=== PATIENT | male | born 1955 | race Caucasian/White ===

== ENCOUNTER 2018-10-01 17:32 | Inpatient (IN) | payer MEDICARE ==
[~2018-10-01] VITALS: Ht 185.4 cm; Wt 112.7 kg
[~2018-10-01 17:32] MED LIST: HYDR-2761 PO; HYDR-3164 PO; SULF1TAB24 PO
[2018-10-01] MEDS ORDERED: IV NORMAL SALINE 1000ML BAG 1,000 ML IV ONE (18:15)
[2018-10-01] MEDS ORDERED: ONDANSETRON PF 4 MG/2 ML VIAL. IV ONE (18:15)
[2018-10-01] MEDS ORDERED: fentaNYL PF VIAL 100 MCG/2 ML VIAL IV ONE ×3 (18:15→21:45)
--- NOTE | 2018-10-01 18:40 | PHYS DOC ---
Past Medical History Past Medical History: COPD, Hypertension, Hepatitis Additional Past Medical Histor: HEP C, RHEUMATIC FEVER, pancreatitis Past Surgical History: Other Additional Past Surgical Histo: HERNIA Alcohol Use: Occasionally Drug Use: None Adult General Chief Complaint Chief Complaint: ABDOMINAL PAIN HPI HPI Patient is a 63 year old male who presents with history of hepatitis C and began having right upper quadrant pain and right lower quadrant pain. Patient states he doesn't usually have pain but it started today about 8:00. States he couldn't sleep at all last night he took one Tylenol PM. States usually takes ibuprofen. His pain 8 out of 10. Denies fever, chest pain, vomiting, diarrhea, weakness, numbness tingling or shortness of air. He ate last at 1630. He is a history of smoking, COPD, hypertension. He states he is only on hypertension medicine. He states he goes to family practice for anything but has not gone a very long time. Currently has no PCP. He denies taking any alcohol. He is allergic to penicillin. He also states he has not had a bowel movement in the last 2 days. Review of Systems Review of Systems Constitutional: Denies fever or chills [] Eyes: Denies change in visual acuity, redness, or eye pain. sclera yellow/white[ ] HENT: Denies nasal congestion or sore throat [] Respiratory: Denies cough or shortness of breath [] Cardiovascular: No additional information not addressed in HPI [] GI: RUQ, RLQ abdominal pain, nausea, Denies vomiting, bloody stools or diarrhea [] : Denies dysuria or hematuria [] Musculoskeletal: Denies back pain or joint pain [] Integument: Denies rash or skin lesions [] Neurologic: headache, denies focal weakness or sensory changes [] All other systems were reviewed and found to be within normal limits, except as documented in this note. Current Medications Current Medications Current Medications Medications (Trade) Dose Ordered Sig/Edwin Start Time Stop Time Status Last Admin Dose Admin Fentanyl Citrate (Fentanyl 2ml Vial) 50 mcg 1X ONCE 10/01/18 20:00 10/01/18 20:01 DC 10/01/18 20:05 50 MCG Info (CONTRAST GIVEN -- Rx MONITORING) 1 each PRN DAILY PRN 10/01/18 19:45 10/03/18 19:44 Iohexol (Omnipaque 300 Mg/ml) 75 ml 1X ONCE 10/01/18 19:45 10/01/18 19:46 DC 10/01/18 19:56 75 ML Ketorolac Tromethamine (Toradol 30mg Vial) 30 mg 1X ONCE 10/01/18 20:00 10/01/18 20:01 DC 10/01/18 20:05 30 MG Ondansetron HCl (Zofran) 4 mg 1X ONCE 10/01/18 18:15 10/01/18 18:16 DC 10/01/18 18:15 4 MG Sodium Chloride 1,000 ml @ 1,000 mls/hr 1X ONCE 10/01/18 18:15 10/01/18 19:14 DC 10/01/18 18:15 1,000 MLS/HR Allergies Allergies Allergies Coded Allergies Type Severity Reaction Last Updated Verified Penicillins Allergy Intermediate hives, sweaty 06/28/16 Yes Physical Exam Physical Exam Constitutional: Well developed, well nourished, no acute distress, non-toxic appearance. [] HENT: Normocephalic, atraumatic, bilateral external ears normal, oropharynx moist, no oral exudates, nose normal. [] Eyes: PERRLA, EOMI, conjunctiva normal, no discharge. [] Neck: Normal range of motion, no tenderness, supple, no stridor. [] Cardiovascular:Heart rate regular rhythm, no murmur [] Lungs & Thorax: Bilateral breath sounds clear to auscultation [] Abdomen: Bowel sounds normal, soft, RUQ, RLQ tenderness, no masses, no pulsatile masses. [] Skin: Warm, dry, no erythema, no rash. [] Back: No tenderness, no CVA tenderness. [] Extremities: No tenderness, no cyanosis, no clubbing, ROM intact, no edema. [] Neurologic: Alert and oriented X 3, normal motor function, normal sensory function, no focal deficits noted. [] Psychologic: Affect normal, judgement normal, mood normal. [] Current Patient Data Vital Signs Vital Signs Date Time Temp Pulse Resp B/P (MAP) Pulse Ox O2 Delivery O2 Flow Rate FiO2 10/01/18 21:20 92 126/87 (100) 94 Room Air 10/01/18 20:35 16 10/01/18 18:55 98.6 98.6 Lab Values Laboratory Tests Test 10/01/18 19:00 10/01/18 20:55 White Blood Count 15.0 x10^3/uL (4.0-11.0) H Red Blood Count 5.62 x10^6/uL (4.30-5.70) Hemoglobin 18.8 g/dL (13.0-17.5) H Hematocrit 54.3 % (39.0-53.0) H Mean Corpuscular Volume 97 fL (79-100) Mean Corpuscular Hemoglobin 33 pg (25-35) Mean Corpuscular Hemoglobin Concent 35 g/dL (31-37) Red Cell Distribution Width 13.2 % (11.5-14.5) Platelet Count 214 x10^3/uL (140-400) Neutrophils (%) (Auto) 72 % (31-73) Lymphocytes (%) (Auto) 20 % (24-48) L Monocytes (%) (Auto) 7 % (0-9) Eosinophils (%) (Auto) 0 % (0-3) Basophils (%) (Auto) 0 % (0-3) Neutrophils # (Auto) 10.9 x10^3uL (1.8-7.7) H Lymphocytes # (Auto) 2.9 x10^3/uL (1.0-4.8) Monocytes # (Auto) 1.1 x10^3/uL (0.0-1.1) Eosinophils # (Auto) 0.1 x10^3/uL (0.0-0.7) Basophils # (Auto) 0.1 x10^3/uL (0.0-0.2) Prothrombin Time 13.1 SEC (11.7-14.0) Prothrombin Time INR 1.0 (0.8-1.1) Sodium Level 143 mmol/L (136-145) Potassium Level 3.9 mmol/L (3.5-5.1) Chloride Level 104 mmol/L (98-107) Carbon Dioxide Level 29 mmol/L (21-32) Anion Gap 10 (6-14) Blood Urea Nitrogen 16 mg/dL (8-26) Creatinine 1.1 mg/dL (0.7-1.3) Estimated GFR (Cockcroft-Gault) 67.4 BUN/Creatinine Ratio 15 (6-20) Glucose Level 115 mg/dL (70-99) H Calcium Level 10.1 mg/dL (8.5-10.1) Total Bilirubin 1.2 mg/dL (0.2-1.0) H Aspartate Amino Transferase (AST) 37 U/L (15-37) Alanine Aminotransferase (ALT) 77 U/L (16-63) H Alkaline Phosphatase 63 U/L (46-116) Ammonia 14 mcmol/L (11-34) Troponin I Quantitative 0.034 ng/mL (0.000-0.055) Total Protein 7.6 g/dL (6.4-8.2) Albumin 3.6 g/dL (3.4-5.0) Albumin/Globulin Ratio 0.9 (1.0-1.7) L Lipase 146 U/L (73-393) Urine Collection Type Unknown Urine Color Yellow Urine Clarity Cloudy Urine pH 7.0 Urine Specific [place] >=1.030 Urine Protein Negative mg/dL (NEG-TRACE) Urine Glucose (UA) Negative mg/dL (NEG) Urine Ketones (Stick) Trace mg/dL (NEG) Urine Blood Small (NEG) Urine Nitrite Negative (NEG) Urine Bilirubin Negative (NEG) Urine Urobilinogen Dipstick 1.0 mg/dL (0.2 mg/dL) Urine Leukocyte Esterase Negative (NEG) Urine RBC 3-5 /HPF (0-2) Urine WBC Occ /HPF (0-4) Urine Squamous Epithelial Cells Occ /LPF Urine Bacteria 0 /HPF (0-FEW) Urine Hyaline Casts Few /HPF Urine Mucus Marked /LPF Urine Opiates Screen Neg (NEG) Urine Methadone Screen Neg (NEG) Urine Barbiturates Neg (NEG) Urine Phencyclidine Screen Neg (NEG) Urine Amphetamine/Methamphetamine Neg (NEG) Urine Benzodiazepines Screen Neg (NEG) Urine Cocaine Screen Neg (NEG) Urine Cannabinoids Screen Pos (NEG) Urine Ethyl Alcohol Neg (NEG) Laboratory Tests 10/01/18 19:00 Laboratory Tests 10/01/18 19:00 EKG EKG Sinus Rhythm and no STEMI Interpretation Time: [address] Keith Radiology/Procedures Radiology/Procedures CT abdomen pelvis Impressions: [facility] [address] [place] [address] IMAGING REPORT Signed PATIENT: GENEVIEVE GOLD ACCOUNT: [id number] : 1955 LOCATION: ER AGE: 63 SEX: M EXAM STATUS: REG ER ORD. PHYSICIAN: CHERYL TAYLOR APRN REASON: ABDOMINAL PAIN, OMNI 300, 75ml PROCEDURE: CT ABD PELV W/ IV CONTRST ONLY PQRS Compliance statement: One or more of the following individualized dose reduction techniques were utilized for this examination: 1. Automated exposure control. 2. Adjustment of the mA and/or kV according to patient size. 3. Use of iterative reconstruction technique. Indication:ABDOMINAL PAIN, OMNI 300, 75ml TECHNIQUE: CT abdomen and pelvis with IV contrast with multiplanar reformats. COMPARISON: None FINDINGS: Heart is normal in size. No pericardial or pleural effusion. 4 mm nodule in the right middle lobe stable from 2006 is benign given interval stability. Mild bibasilar subsegmental atelectasis. Stable 7 mm nodule in the right lower lobe (series 2 image 8). Too small to characterize ill-defined low attenuating lesion in segment 8 (series 2 image 16). Otherwise, liver, spleen, pancreas, adrenals within normal limits. Gallstone noted. No pericholecystic fluid. Bilateral low attenuating lesions are seen in the kidneys, the largest in the left kidney measuring 2.7 cm. No nephrolithiasis or hydronephrosis. No enlarged retroperitoneal or pelvic adenopathy. Small fat-containing right inguinal hernia. No free pelvic fluid or ascites. 1.3 cm soft tissue nodule in the left mesentery (series 2 image 61 most likely eccentric lymph node. No bowel obstruction. Appendix is dilated with periappendiceal inflammation measuring 8 mm. The tip of the appendix is dilated measuring 1 cm. No pneumoperitoneum. Urinary bladder is within normal limits. The prostate and seminal vesicles show no large mass. Small omental fat-containing medical hernia. No suspicious bony lesion. IMPRESSION: 1. Acute appendicitis. 2. Bilateral renal lesions most likely simple cyst. Nonemergent ultrasound of the kidneys recommended. 3. Cholelithiasis without imaging evidence of acute cholecystitis. 4. Indeterminate small liver lesion likely small hemangioma or cystic biliary hamartoma in absence of known primary malignancy. Electronically signed by: Xavi Alejandro DO (10/01/2018 8:13 PM) [facility] DICTATED and SIGNED BY: XAVI ALEJANDRO DO DATE: 10/01/182007 [facility] [address] [place] [address] IMAGING REPORT Signed PATIENT: GENEVIEVE GOLD ACCOUNT: [id number] : 1955 LOCATION: ER AGE: 63 SEX: M EXAM STATUS: REG ER ORD. PHYSICIAN: CHERYL TAYLOR APRN REASON: CHEST PAIN PROCEDURE: CHEST PA & LATERAL CHEST PA LATERAL History: CHEST, ABDOMINAL PAIN X2 DAYS. HX. OF HBP Comparison: AP chest July 25, 2016. Findings: The cardiomediastinal silhouette is normal. Pulmonary vasculature is normal. Lungs borderline hyperexpanded. The lungs are clear. No pleural effusion or pneumothorax is seen. There is no acute bone abnormality. IMPRESSION: No acute cardiopulmonary process. Electronically signed by: Elliott Craft MD (10/01/2018 8:39 PM) [facility] DICTATED and SIGNED BY: ELLIOTT CRAFT MD DATE: 10/01/182036 Course & Med Decision Making Course & Med Decision Making Patient is a 63 year old male who presents with history of hepatitis C and began having right upper quadrant pain and right lower quadrant pain. Patient states he doesn't usually have pain but it started today about 8:00. States he couldn't sleep at all last night he took one Tylenol PM. States usually takes ibuprofen. His pain 8 out of 10. Denies fever, chest pain, vomiting, diarrhea, weakness, numbness tingling or shortness of air. He ate last at 1630. He is a history of smoking, COPD, hypertension. He states he is only on hypertension medicine. He states he goes to family practice for anything but has not gone a very long time. Currently has no PCP. He denies taking any alcohol. He is allergic to penicillin. He also states he has not had a bowel movement in the last 2 days. Alert and oriented. Patient's sclera looks slightly yellow but skin does not look yellow. Mucus membranes are moist. Palpation to the right about quadrant shows a enlarged liver and pain with palpation in patient also has right lower quadrant pain with palpation. Rest of his abdomen is soft and nontender. Heart rate regular without murmur. Lungs are clear in upper lobes bilaterally but diminished in lower lobes bilaterally. Patient has no lower extremity edema. Afebrile. CT abdomen pelvis shows 1. Acute appendicitis. 2. Bilateral renal lesions most likely simple cyst. Nonemergent ultrasound of the kidneys recommended. 3. Cholelithiasis without imaging evidence of acute cholecystitis. 4. Indeterminate small liver lesion likely small hemangioma or cystic biliary hamartoma in absence of known primary malignancy. She is admitted by Dr. Hansen and Dr Garrett has talked to Surgery. Dragon Disclaimer Dragon Disclaimer This electronic medical record was generated, in whole or in part, using a voice recognition dictation system. Departure Departure Impression: Primary Impression: Acute appendicitis Disposition: ADMITTED INPATIENT Admitting Physician: Xie. Slade Condition: STABLE Referrals: UNKNOWN PCP NAME (PCP) Attending Signature Attending Signature I have reviewed the PA/TOURS HOSTESS's note and plan of care. I was available for consultation as needed during the patient's visit in the emergency department. I agree with the clinical impression, plan, and disposition. Problem Qualifiers Primary Impression: Acute appendicitis Acute appendicitis type: unspecified acute appendicitis type Qualified Codes : K35.80 - Unspecified acute appendicitis CHERYL TAYLOR APRN Oct 01, 2018 18:40 TANIYA KEITH DO Oct 03, 2018 14:16
[2018-10-01 19:12] LABS: BASO # 0.1 x10^3/uL (0.0-0.2); BASO % 0 % (0-3); EOS # 0.1 x10^3/uL (0.0-0.7); EOS % 0 % (0-3); HEMATOCRIT 54.3 % (39.0-53.0); HEMOGLOBIN 18.8 g/dL (13.0-17.5); LYMPH # 2.9 x10^3/uL (1.0-4.8); LYMPH % 20 % (24-48); MEAN CORPUSCULAR HEMOGLOBIN 33 pg (25-35); MEAN CORPUSCULAR HGB CONC 35 g/dL (31-37); MEAN CORPUSCULAR VOLUME 97 fL (79-100); MONO # 1.1 x10^3/uL (0.0-1.1); MONO % 7 % (0-9); NEUT # 10.9 x10^3uL (1.8-7.7); NEUT % 72 % (31-73); PLATELET COUNT 214 x10^3/uL (140-400); RED BLOOD COUNT 5.62 x10^6/uL (4.30-5.70); RED CELL DISTRIBUTION WIDTH 13.2 % (11.5-14.5)
[2018-10-01 19:16] LABS: CALCIUM 10.1 mg/dL (8.5-10.1); CREATININE 1.1 mg/dL (0.7-1.3); GFR 67.4; POTASSIUM 3.9 mmol/L (3.5-5.1)
[2018-10-01 19:25] LABS: ALBUMIN 3.6 g/dL (3.4-5.0); ALBUMIN/GLOBULIN RATIO 0.9 (1.0-1.7); TOTAL BILIRUBIN 1.2 mg/dL (0.2-1.0); TOTAL PROTEIN 7.6 g/dL (6.4-8.2)
[2018-10-01] MEDS ORDERED: CONTRAST GIVEN. MC PRN (19:45)
[2018-10-01] MEDS ORDERED: IOHEXOL 300 MG/ML 100ML VIAL. IV ONE (19:45)
[2018-10-01] MEDS ORDERED: KETOROLAC 30 MG/ML VIAL. IV ONE (20:00)
--- NOTE | 2018-10-01 20:18 | RAD ---
PQRS Compliance statement: One or more of the following individualized dose reduction techniques were utilized for this examination: 1. Automated exposure control. 2. Adjustment of the mA and/or kV according to patient size. 3. Use of iterative reconstruction technique. Indication:ABDOMINAL PAIN, OMNI 300, 75ml TECHNIQUE: CT abdomen and pelvis with IV contrast with multiplanar reformats. COMPARISON: None FINDINGS: Heart is normal in size. No pericardial or pleural effusion. 4 mm nodule in the right middle lobe stable from 2006 is benign given interval stability. Mild bibasilar subsegmental atelectasis. Stable 7 mm nodule in the right lower lobe (series 2 image 8). Too small to characterize ill-defined low attenuating lesion in segment 8 (series 2 image 16). Otherwise, liver, spleen, pancreas, adrenals within normal limits. Gallstone noted. No pericholecystic fluid. Bilateral low attenuating lesions are seen in the kidneys, the largest in the left kidney measuring 2.7 cm. No nephrolithiasis or hydronephrosis. No enlarged retroperitoneal or pelvic adenopathy. Small fat-containing right inguinal hernia. No free pelvic fluid or ascites. 1.3 cm soft tissue nodule in the left mesentery (series 2 image 61 most likely eccentric lymph node. No bowel obstruction. Appendix is dilated with periappendiceal inflammation measuring 8 mm. The tip of the appendix is dilated measuring 1 cm. No pneumoperitoneum. Urinary bladder is within normal limits. The prostate and seminal vesicles show no large mass. Small omental fat-containing medical hernia. No suspicious bony lesion. IMPRESSION: 1. Acute appendicitis. 2. Bilateral renal lesions most likely simple cyst. Nonemergent ultrasound of the kidneys recommended. 3. Cholelithiasis without imaging evidence of acute cholecystitis. 4. Indeterminate small liver lesion likely small hemangioma or cystic biliary hamartoma in absence of known primary malignancy. Electronically signed by: Xavi Alejandro DO (10/01/2018 8:13 PM) [facility]
--- NOTE | 2018-10-01 20:43 | RAD ---
CHEST PA LATERAL History: CHEST, ABDOMINAL PAIN X2 DAYS. HX. OF HBP Comparison: AP chest July 25, 2016. Findings: The cardiomediastinal silhouette is normal. Pulmonary vasculature is normal. Lungs borderline hyperexpanded. The lungs are clear. No pleural effusion or pneumothorax is seen. There is no acute bone abnormality. IMPRESSION: No acute cardiopulmonary process. Electronically signed by: Elliott Craft MD (10/01/2018 8:39 PM) [facility]
[2018-10-01 21:05] LABS: BILIRUBIN,URINE NEGATIVE (NEG); CLARITY,URINE CLOUDY; COLOR,URINE YELLOW; NITRITE,URINE NEGATIVE (NEG); PROTEIN,URINE NEGATIVE (NEG-TRACE)
[2018-10-01 21:15] LABS: BARBITURATES NEG (NEG); BENZODIAZEPINES NEG (NEG); CANNABINOIDS POS (NEG); COCAINE NEG (NEG); METHADONE NEG (NEG); OPIATES NEG (NEG); PHENCYCLIDINE NEG (NEG)
[2018-10-01 21:18] LABS: AMPHETAMINE/METHAMPHETAMINE NEG (NEG)
[2018-10-01] MEDS ORDERED: cloNIDine HCL 0.1 MG TABLET PO ONE (21:30)
[2018-10-01 21:39] LABS: BACTERIA,URINE 0 /HPF (0-FEW); HYALINE CASTS, URINE FEW /HPF; SQUAMOUS EPITHELIAL CELL,UR OCC /LPF; WBC,URINE OCC /HPF (0-4)
[2018-10-01] MEDS ORDERED: IV DEXTROSE 5 %-0.45 % NACL 1,000 ML IV ONE (22:00)
[2018-10-01 22:05] LABS: PROTHROMBIN TIME PATIENT 13.1 SEC (11.7-14.0)
[2018-10-01 23:00] VITALS: BP 165/104
[2018-10-01] MEDS: CIPROFLOXACIN 400MG PREMIX 200 ML IV SCH (23:21)
[2018-10-02] VITALS (11 sets, daily range): BP systolic 140–233; BP diastolic 78–94
[2018-10-02] MEDS ORDERED: ONDANSETRON PF 4 MG/2 ML VIAL. IV PRN ×2 (02:45→07:45)
[2018-10-02] MEDS: MORPHINE SULFATE 4 MG/ML VIAL. IV PRN ×2 (02:55→07:28)
--- NOTE | 2018-10-02 06:22 | NUR ---
Admission Note Pt. was admitted late on 10/01/18, pt. is alert and oriented no room air stating at around 94%. Pt. VSS. Oriented pt. to room and call light. Pt. is complaining of pain in his abdomen, right lower quadrant around 8:10, states to this nurse that his pain began around yesterday morning, and he states he does also have some notable constipation. Pt. appears unkempt on admission and states it is due to his feelings of malaise over the last few days. Pt. states he believed his pain to be related to his diagnosis of Hep C. When asking pt. about home situation he states that he "gets dizzy a lot" but has not fallen recently however he is concerned about stairs that he has at home. This pt. also mentions to this nurse that he has a lot of difficulty seeing, which makes it difficult for him to care for his feet. Pt. states to this nurse that he does not regularly leave his apartment because he does not feel safe. Pt. states he lives alone at this time. Pt. also states he has home medications but that he is uncertain about what he takes though he states that several are for his blood pressure. Throughout this night the pt. was noted to be throwing PVC's, couplets, triplets, and to be going into trigeminy as well as at times accelerated ventricular rhythms. This nurse sent message to Dr. Hansen through the messaging system to notify the DrManpreet of this and to receive orders and received message back that the Doctor is now aware, will inform dayshift to follow up with MD on rounds this AM. Pt. is resting in bed at this time with minimal complaints of pain. Will continue to monitor pt.
[2018-10-02] MEDS ORDERED: DEXAMETHASONE SOD PHOS 20 MG/5 ML VIAL. ONE (06:46)
[2018-10-02] MEDS ORDERED: PROPOFOL 20 ML IV ONE (06:46)
[2018-10-02] MEDS ORDERED: ONDANSETRON PF 4 MG/2 ML VIAL. ONE (06:46)
[2018-10-02] MEDS ORDERED: LIDOCAINE 2% PF Vial for OR 5 ML VIAL. ONE (06:46)
[2018-10-02] MEDS ORDERED: ROCURONIUM 50 MG/5 ML VIAL. ONE (06:47)
[2018-10-02] MEDS ORDERED: SUCCINYLCHOLINE 200 MG/10 ML VIAL. ONE (06:47)
[2018-10-02] MEDS ORDERED: fentaNYL PF VIAL 100 MCG/2 ML VIAL ONE ×2 (06:47→08:23)
[2018-10-02] MEDS ORDERED: BUPIVAC MPF-EPI 0.5%-1:200000 30 ML VIAL. ONE (07:11)
[2018-10-02] MEDS ORDERED: IV RINGERS,LACTATED 1000ML 1,000 ML IV SCH (07:30)
--- NOTE | 2018-10-02 07:40 | PDOC2 ---
CONSULT Date of Consult Date of Consult DATE: 10/02/18 TIME: 07:36 History of Present Illness Reason for Visit: The patient is a 63 year old male who presented with abdominal pain. The pain began around 3 days ago and has been located in the RLQ. He denies associated nausea, vomiting, fever or chills. He denies changes in bowel function. Past Medical History Past Medical History Hep C, HTN, COPD, tobacco abuse Past Surgical History Past Surgical History bilat inguinal hernia repair Social History 1 pack per day Current Problem List Problem List Problems Medical Problems: (1) Acute appendicitis Status: Acute Current Medications Current Medications Current Medications Sodium Chloride 1,000 ml @ 1,000 mls/hr 1X ONCE IV Last administered on 10/01at 18:15; Start 10/01/18 at 18:15; Stop 10/01/18 at 19:14; Status DC Ondansetron HCl (Zofran) 4 mg 1X ONCE IV Last administered on 10/01/18at 18:15 ; Start 10/01/18 at 18:15; Stop 10/01/18 at 18:16; Status DC Fentanyl Citrate (Fentanyl 2ml Vial) 50 mcg 1X ONCE IV Last administered on at 19:15; Start 10/01/18 at 18:15; Stop 10/01/18 at 18:16; Status DC Iohexol (Omnipaque 300 Mg/ml) 75 ml 1X ONCE IV Last administered on at 19:56; Start 10/01/18 at 19:45; Stop 10/01/18 at 19:46; Status DC Info (CONTRAST GIVEN -- Rx MONITORING) 1 each PRN DAILY PRN MC SEE COMMENTS; Start 10/01/18 at 19:45; Stop 10/03/18 at 19:44 Ketorolac Tromethamine (Toradol 30mg Vial) 30 mg 1X ONCE IV Last administered on 10/01/18at 20:05; Start 10/01/18 at 20:00; Stop 10/01/18 at 20:01; Status DC Fentanyl Citrate (Fentanyl 2ml Vial) 50 mcg 1X ONCE IV Last administered on at 20:05; Start 10/01/18 at 20:00; Stop 10/01/18 at 20:01; Status DC Clonidine HCl (Catapres) 0.1 mg 1X ONCE PO Last administered on 10/01/18at 22: 30; Start 10/01/18 at 21:30; Stop 10/01/18 at 21:31; Status DC Fentanyl Citrate (Fentanyl 2ml Vial) 50 mcg 1X ONCE IV Last administered on at 21:45; Start 10/01/18 at 21:45; Stop 10/01/18 at 21:46; Status DC Ciprofloxacin/ Dextrose 200 ml @ 200 mls/hr BID IV Last administered on at 23:21; Start 10/01/18 at 22:00 Metronidazole 100 ml @ 100 mls/hr Q12HR IV Last administered on 10/01/18at 22: 35; Start 10/01/18 at 22:00 Dextrose/Sodium Chloride 1,000 ml @ 100 mls/hr 1X ONCE IV Last administered on 10/01/18at 23:21; Start 10/01/18 at 22:00; Stop 10/02/18 at 07:59 Morphine Sulfate (Morphine Sulfate) 2 mg PRN Q3HRS PRN IV PAIN Last administered on 10/02/18at 07:28; Start 10/02/18 at 02:45 Ondansetron HCl (Zofran) 4 mg PRN Q6HRS PRN IV NAUSEA/VOMITING; Start 10/02/18 at 02:45 Propofol 20 ml @ As Directed STK-MED ONCE IV ; Start 10/02/18 at 06:46; Stop 10/02 at 06:48; Status DC Dexamethasone Sodium Phosphate (Decadron) 20 mg STK-MED ONCE .ROUTE ; Start 10/02 at 06:46; Stop 10/02/18 at 06:48; Status DC Lidocaine HCl (Lidocaine Pf 2% Vial) 5 ml STK-MED ONCE .ROUTE ; Start 10/02/18 at 06:46; Stop 10/02/18 at 06:48; Status DC Ondansetron HCl (Zofran) 4 mg STK-MED ONCE .ROUTE ; Start 10/02/18 at 06:46; Stop 10/02/18 at 06:48; Status DC Succinylcholine Chloride (Anectine) 200 mg STK-MED ONCE .ROUTE ; Start 10/02/18 at 06:47; Stop 10/02/18 at 06:48; Status DC Rocuronium Otis (Zemuron) 50 mg STK-MED ONCE .ROUTE ; Start 10/02/18 at 06:47 ; Stop 10/02/18 at 06:48; Status DC Fentanyl Citrate (Fentanyl 2ml Vial) 100 mcg STK-MED ONCE .ROUTE ; Start at 06:47; Stop 10/02/18 at 06:49; Status DC Bupivacaine HCl/ Epinephrine Bitart (Sensorcain-Mpf Epi 0.5%-1:[id number]) 30 ml STK -MED ONCE .ROUTE ; Start 10/02/18 at 07:11; Stop 10/02/18 at 07:13; Status DC Ondansetron HCl (Zofran) 4 mg PRN Q6HRS PRN IV NAUSEA/VOMITING; Start 10/02/18 at 07:45; Stop 10/02/18 at 18:00 Fentanyl Citrate (Fentanyl 2ml Vial) 25 mcg PRN Q5MIN PRN IV MILD PAIN; Start 10/02/18 at 07:45; Stop 10/02/18 at 18:00 Fentanyl Citrate (Fentanyl 2ml Vial) 50 mcg PRN Q5MIN PRN IV MODERATE TO SEVERE PAIN; Start 10/02/18 at 07:45; Stop 10/02/18 at 18:00 Morphine Sulfate (Morphine Sulfate) 1 mg PRN Q10MIN PRN IV SEVERE PAIN; Start 10/02/18 at 07:45; Stop 10/02/18 at 18:00 Ringer's Solution 1,000 ml @ 30 mls/hr Q24H IV ; Start 10/02/18 at 07:30; Stop 10/02/18 at 18:00 Lidocaine HCl (Xylocaine-Mpf 1% 2ml Vial) 2 ml 1X PRN PRN ID IV START; Start at 07:45; Stop 10/02/18 at 18:00 Hydromorphone HCl (Dilaudid) 0.5 mg PRN Q10MIN PRN IV SEV PAIN, Second choice; Start 10/02/18 at 07:45; Stop 10/02/18 at 18:00; Status UNV Prochlorperazine Edisylate (Compazine) 5 mg PACU PRN PRN IV NAUSEA, MRX1; Start 10/02/18 at 07:45; Stop 10/03/18 at 07:44; Status UNV Active Scripts Active Hydrocodone-Apap 5-325 (Hydrocodone Bit/Acetaminophen) 1 Each Tablet 1 Tab PO PRN Q6HRS PRN Bactrim Ds Tablet (Sulfamethoxazole/Trimethoprim) 1 Each Tablet 1 Tab PO BID Wilder 5-325 Tablet (Acetaminophen/Hydrocodone Bitart) 1 Each Tablet 1-2 Tab PO Q4-6HRS Allergies Allergies: Coded Allergies: Penicillins (Verified Allergy, Intermediate, hives, sweaty, 06/28/16) ROS General: No: Chills, Night Sweats, Fatigue, Malaise, Appetite, Other Eyes: No Blurry vision, No Decreased vision, No Double vision, No Dry eyes, No Excessive tearing, No Eye Pain, No Itchy Eyes, No Loss of vision, No Photophobia , No Scotomata, No Uses contacts, No Uses glasses, No Other HEENT: No: Heacaches, Visual Changes, Hearing change, Nasal congestion, Nasal discharge, Oral lesions, Sinus pain, Sore Throat, Epistaxis, Sneezing, Snoring, Tinnitus, Vertigo, Vocal changes, Other ALLERGY AND IMMUNOLOGY: No: Hives, Insect Bite Sensitivity, Itchy/Watery Eyes, Nasal Congestion, Post Nasal Drip, Seasonal Allergies, Other Hematological and Lymphatic: No: Bleeding Problems, Blood Clots, Blood Transfusions, Brusing, Night Sweats, Pallor, Swollen Lymph Nodes, Other ENDOCRINE: No: Breast Changes, Galactorrhea, Hair Pattern Changes, Hot Flashes , Malaise/lethargy, Mood Swings, Palpitations, Polydipsia/polyuria, Skin Changes , Temperature Intolerance, Unexpected Weight Changes, Other Respiratory: No: Cough, Hemoptysis, Orthopnea, Pleuritic Pain, Shortness of breath, SOB with excertion, Sputum Changes, Stridor, Tachypnea, Wheezing, Other Cardiovascular: No Chest Pain, No Palpitations, No Orthopnea, No Paroxysmal Noc. Dyspnea, No Edema, No Lt Headedness, No Other Gastrointestinal: Yes Abdominal Pain Genitourinary: No Dysuria, No Frequency, No Incontinence, No Hematuria, No Retention, No Discharge, No Urgency, No Pain, No Flank Pain, No Other, No , No , No , No , No , No , No Musculoskeletal: No Gait Disturbance, No Joint Pain, No Joint Stiffness, No Joint Swelling, No Muscle Pain, No Muscular Weakness, No Pain In:, No Swelling In:, No Other Neurological: No Behavorial Changes, No Bowel/Bladder ControlChng, No Confusion , No Dizziness, No Gait Disturbance, No Headaches, No Impaired Coord/balance, No Memory Loss, No Numbness/Tingling, No Seizures, No Speech Problems, No Tremors, No Visual Changes, No Weakness, No Other Skin: No Dry Skin, No Eczema, No Hair Changes, No Lumps, No Mole Changes, No Mottling, No Nail Changes, No Pruritus, No Rash, No Skin Lesion Changes, No Other, No Acne Physical Exam General: Alert, Oriented X3, Cooperative HEENT: Atraumatic Lungs: Clear to auscultation Heart: Regular rate Abdomen: Soft (obese, tender in RLQ with palpation, reducible umbilical hernia present) Extremities: No clubbing, No cyanosis Skin: No breakdown Neuro: Normal speech, Strength at 5/5 X4 ext Psych/Mental Status: Mental status NL Vitals VITALS Vital Signs Date Time Temp Pulse Resp B/P (MAP) Pulse Ox O2 Delivery O2 Flow Rate FiO2 10/02/18 03:25 16 96 Room Air 10/02/18 03:00 98.0 87 166/94 (118) 98.0 Labs Labs Laboratory Tests Test 10/01/18 19:00 10/01/18 20:55 White Blood Count 15.0 x10^3/uL (4.0-11.0) Red Blood Count 5.62 x10^6/uL (4.30-5.70) Hemoglobin 18.8 g/dL (13.0-17.5) Hematocrit 54.3 % (39.0-53.0) Mean Corpuscular Volume 97 fL (79-100) Mean Corpuscular Hemoglobin 33 pg (25-35) Mean Corpuscular Hemoglobin Concent 35 g/dL (31-37) Red Cell Distribution Width 13.2 % (11.5-14.5) Platelet Count 214 x10^3/uL (140-400) Neutrophils (%) (Auto) 72 % (31-73) Lymphocytes (%) (Auto) 20 % (24-48) Monocytes (%) (Auto) 7 % (0-9) Eosinophils (%) (Auto) 0 % (0-3) Basophils (%) (Auto) 0 % (0-3) Neutrophils # (Auto) 10.9 x10^3uL (1.8-7.7) Lymphocytes # (Auto) 2.9 x10^3/uL (1.0-4.8) Monocytes # (Auto) 1.1 x10^3/uL (0.0-1.1) Eosinophils # (Auto) 0.1 x10^3/uL (0.0-0.7) Basophils # (Auto) 0.1 x10^3/uL (0.0-0.2) Prothrombin Time 13.1 SEC (11.7-14.0) Prothromb Time International Ratio 1.0 (0.8-1.1) Sodium Level 143 mmol/L (136-145) Potassium Level 3.9 mmol/L (3.5-5.1) Chloride Level 104 mmol/L (98-107) Carbon Dioxide Level 29 mmol/L (21-32) Anion Gap 10 (6-14) Blood Urea Nitrogen 16 mg/dL (8-26) Creatinine 1.1 mg/dL (0.7-1.3) Estimated GFR (Cockcroft-Gault) 67.4 BUN/Creatinine Ratio 15 (6-20) Glucose Level 115 mg/dL (70-99) Calcium Level 10.1 mg/dL (8.5-10.1) Total Bilirubin 1.2 mg/dL (0.2-1.0) Aspartate Amino Transf (AST/SGOT) 37 U/L (15-37) Alanine Aminotransferase (ALT/SGPT) 77 U/L (16-63) Alkaline Phosphatase 63 U/L (46-116) Ammonia 14 mcmol/L (11-34) Troponin I Quantitative 0.034 ng/mL (0.000-0.055) Total Protein 7.6 g/dL (6.4-8.2) Albumin 3.6 g/dL (3.4-5.0) Albumin/Globulin Ratio 0.9 (1.0-1.7) Lipase 146 U/L (73-393) Urine Collection Type Unknown Urine Color Yellow Urine Clarity Cloudy Urine pH 7.0 Urine Specific [place] >=1.030 Urine Protein Negative mg/dL (NEG-TRACE) Urine Glucose (UA) Negative mg/dL (NEG) Urine Ketones (Stick) Trace mg/dL (NEG) Urine Blood Small (NEG) Urine Nitrite Negative (NEG) Urine Bilirubin Negative (NEG) Urine Urobilinogen Dipstick 1.0 mg/dL (0.2 mg/dL) Urine Leukocyte Esterase Negative (NEG) Urine RBC 3-5 /HPF (0-2) Urine WBC Occ /HPF (0-4) Urine Squamous Epithelial Cells Occ /LPF Urine Bacteria 0 /HPF (0-FEW) Urine Hyaline Casts Few /HPF Urine Mucus Marked /LPF Urine Opiates Screen Neg (NEG) Urine Methadone Screen Neg (NEG) Urine Barbiturates Neg (NEG) Urine Phencyclidine Screen Neg (NEG) Urine Amphetamine/Methamphetamine Neg (NEG) Urine Benzodiazepines Screen Neg (NEG) Urine Cocaine Screen Neg (NEG) Urine Cannabinoids Screen Pos (NEG) Urine Ethyl Alcohol Neg (NEG) Laboratory Tests Test 10/01/18 19:00 10/01/18 20:55 White Blood Count 15.0 x10^3/uL (4.0-11.0) Red Blood Count 5.62 x10^6/uL (4.30-5.70) Hemoglobin 18.8 g/dL (13.0-17.5) Hematocrit 54.3 % (39.0-53.0) Mean Corpuscular Volume 97 fL (79-100) Mean Corpuscular Hemoglobin 33 pg (25-35) Mean Corpuscular Hemoglobin Concent 35 g/dL (31-37) Red Cell Distribution Width 13.2 % (11.5-14.5) Platelet Count 214 x10^3/uL (140-400) Neutrophils (%) (Auto) 72 % (31-73) Lymphocytes (%) (Auto) 20 % (24-48) Monocytes (%) (Auto) 7 % (0-9) Eosinophils (%) (Auto) 0 % (0-3) Basophils (%) (Auto) 0 % (0-3) Neutrophils # (Auto) 10.9 x10^3uL (1.8-7.7) Lymphocytes # (Auto) 2.9 x10^3/uL (1.0-4.8) Monocytes # (Auto) 1.1 x10^3/uL (0.0-1.1) Eosinophils # (Auto) 0.1 x10^3/uL (0.0-0.7) Basophils # (Auto) 0.1 x10^3/uL (0.0-0.2) Prothrombin Time 13.1 SEC (11.7-14.0) Prothromb Time International Ratio 1.0 (0.8-1.1) Sodium Level 143 mmol/L (136-145) Potassium Level 3.9 mmol/L (3.5-5.1) Chloride Level 104 mmol/L (98-107) Carbon Dioxide Level 29 mmol/L (21-32) Anion Gap 10 (6-14) Blood Urea Nitrogen 16 mg/dL (8-26) Creatinine 1.1 mg/dL (0.7-1.3) Estimated GFR (Cockcroft-Gault) 67.4 BUN/Creatinine Ratio 15 (6-20) Glucose Level 115 mg/dL (70-99) Calcium Level 10.1 mg/dL (8.5-10.1) Total Bilirubin 1.2 mg/dL (0.2-1.0) Aspartate Amino Transf (AST/SGOT) 37 U/L (15-37) Alanine Aminotransferase (ALT/SGPT) 77 U/L (16-63) Alkaline Phosphatase 63 U/L (46-116) Ammonia 14 mcmol/L (11-34) Troponin I Quantitative 0.034 ng/mL (0.000-0.055) Total Protein 7.6 g/dL (6.4-8.2) Albumin 3.6 g/dL (3.4-5.0) Albumin/Globulin Ratio 0.9 (1.0-1.7) Lipase 146 U/L (73-393) Urine Collection Type Unknown Urine Color Yellow Urine Clarity Cloudy Urine pH 7.0 Urine Specific Olcott >=1.030 Urine Protein Negative mg/dL (NEG-TRACE) Urine Glucose (UA) Negative mg/dL (NEG) Urine Ketones (Stick) Trace mg/dL (NEG) Urine Blood Small (NEG) Urine Nitrite Negative (NEG) Urine Bilirubin Negative (NEG) Urine Urobilinogen Dipstick 1.0 mg/dL (0.2 mg/dL) Urine Leukocyte Esterase Negative (NEG) Urine RBC 3-5 /HPF (0-2) Urine WBC Occ /HPF (0-4) Urine Squamous Epithelial Cells Occ /LPF Urine Bacteria 0 /HPF (0-FEW) Urine Hyaline Casts Few /HPF Urine Mucus Marked /LPF Urine Opiates Screen Neg (NEG) Urine Methadone Screen Neg (NEG) Urine Barbiturates Neg (NEG) Urine Phencyclidine Screen Neg (NEG) Urine Amphetamine/Methamphetamine Neg (NEG) Urine Benzodiazepines Screen Neg (NEG) Urine Cocaine Screen Neg (NEG) Urine Cannabinoids Screen Pos (NEG) Urine Ethyl Alcohol Neg (NEG) Assessment/Plan Assessment/Plan 63 year old male with RLQ pain, suspect appendicitis; plan to OR for appendectomy. The details and risks of surgery were discussed with the patient. He understands and would like to proceed. BRITTANIE ROMERO MD Oct 02, 2018 07:40
[2018-10-02] MEDS ORDERED: LIDOCAINE 1% PF 2 ML VIAL. ID PRN (07:45)
[2018-10-02] MEDS ORDERED: PROCHLORPERAZINE 10 MG/2 ML VIAL. IV PRN (07:45)
[2018-10-02] MEDS ORDERED: fentaNYL PF VIAL 100 MCG/2 ML VIAL IV PRN ×2 (07:45)
[2018-10-02] MEDS ORDERED: MORPHINE SULFATE 2 MG/ML VIAL. IV PRN (07:45)
[2018-10-02] MEDS ORDERED: HYDROmorphone 2 MG/ML VIAL IV PRN (07:45)
--- NOTE | 2018-10-02 07:49 | NUR ---
Transported to PACU by bed, DConnected from IVF, sent with chart,
[2018-10-02] MEDS ORDERED: GLYCOPYRROLATE 1 MG/5 ML VIAL. ONE (08:19)
[2018-10-02] MEDS ORDERED: NEOSTIGMINE METHYLSULFATE 5 MG/5 ML SYRINGE. ONE (08:19)
[2018-10-02] MEDS ORDERED: SEVOFLURANE 61 TO 120 MINUTES. IH ONE (08:22)
[2018-10-02] MEDS ORDERED: KETOROLAC 30 MG/ML INJ FOR OR. INJ ONE (08:22)
[2018-10-02] MEDS ORDERED: hydrALAZINE 20 MG/ML VIAL. ONE (08:24)
--- NOTE | 2018-10-02 08:58 | PDOC4 ---
Operative Note Operative Note Preoperative Diagnosis: Acute Appendicitis Postoperative Diagnosis: Same Procedure: Laparoscopic appendectomy Surgeon: Jose Chicken Raiser: Irais GARSIA Anesthesia: Gen. EBL: 10 mL Specimen: Appendix to pathology Drains: None Complications: None Indication: The patient is a 63-year-old male who reported to the emergency department with abdominal pain. The evaluation is consistent with acute appendicitis. The patient was offered surgical treatment with a laparoscopic appendectomy. The risks of surgery were discussed which include bleeding, infection, visceral injury, pain, anesthetic risk, potential need for additional surgery or procedure. The patient understands and would like to proceed. Description: The patient was taken to the operating room and placed supine on the operating table. Gen. anesthesia was performed. The abdomen was prepped with ChloraPrep and draped in a standard surgical manner. A left abdominal incision was made through which a visualized 5 mm trocar was inserted and a pneumoperitoneum was created. The laparoscope was then introduced. In the left lower quadrant a 5 mm trocar was inserted. In the suprapubic region a 12 mm trocar was inserted. The appendix was identified and appeared inflamed consistent with acute appendicitis. There was no clear evidence of perforation or periappendiceal abscess. The mesoappendix was bluntly from the appendix. The mesoappendix was controlled using several clips and it was divided. The appendix was then amputated off the cecum using an Endo WES 45 stapling device. The appendix was then placed in an endoscopic bag and extracted at the suprapubic incision site. The fascia there was closed with 0 Vicryl and infiltrated with half percent Marcaine with epinephrine. The RLQ was visualized and the staple line appeared well intact and hemostasis was good. No other abnormalities were identified grossly. The remaining ports were removed and the pneumoperitoneum was relieved. The skin at all incision sites was closed with 4-0 Monocryl. Steri-Strips and dressings were applied. The patient tolerated the procedure well and was sent to the recovery room in stable condition. At the end of the case all counts were correct. BRITTANIE ROMERO MD Oct 02, 2018 08:57
[2018-10-02] MEDS ORDERED: ALBUTEROL SULFATE 2.5 MG/3 ML NEBU. NEB ONE (10:00)
--- NOTE | 2018-10-02 10:15 | NUR ---
Pt returned from PACU via bed. Resumed IVF and IV ABTs. Pt in bed with HOB raised, no complaints of pain at this time. Ordered a breakfast tray and Pepsi.
[2018-10-02] MEDS: NICOTINE 21MG PATCH. TD SCH (11:19)
[2018-10-02] MEDS: CIPROFLOXACIN 400MG PREMIX 200 ML IV SCH ×2 (11:19→20:36)
[2018-10-02] MEDS: oxyCODONE/APAP 5/325 1 TAB TABLET PO PRN ×3 (11:22→20:32)
--- NOTE | 2018-10-02 14:41 | HP ---
ADMIT DATE: 10/01/2018 CHIEF COMPLAINT: Abdominal pain. HISTORY OF PRESENT ILLNESS: The patient is a pleasant 63-year-old male who presented to the ER with abdominal pain. They did a CAT scan, he had appendicitis. He was taken emergently to the OR. He is now straight out of the OR in his room where he is being examined on the medical floor. It should be noted that he complains of pain, rates it 7/10 and has associated nausea. This all came on a few days ago. PAST MEDICAL HISTORY: Hep C, COPD, hypertension, rheumatic fever, pancreatitis, hernia repair. ALLERGIES: PENICILLIN. FAMILY HISTORY: Hypertension. SOCIAL HISTORY: He does not drink, smoke or take drugs. MEDICATIONS: Reviewed. He is on Bactrim, hydrocodone and [place]. REVIEW OF SYSTEMS: GENERAL: No history of weight change, weakness or fevers. SKIN: No bruising, hair changes or rashes. EYES: No blurred, double or loss of vision. NOSE AND THROAT: No history of nosebleeds, hoarseness or sore throat. HEART: No history of palpitations, chest pain or shortness of breath on exertion. LUNGS: Denies cough, hemoptysis, wheezing or shortness of breath. GASTROINTESTINAL: He complains of abdominal pain.. GENITOURINARY: No history of frequency, urgency, hesitancy or nocturia. NEUROLOGIC: Denies history of numbness, tingling, tremor or weakness. PSYCHIATRIC: No history of panic, anxiety or depression. ENDOCRINE: No history of heat or cold intolerance, polyuria or polydipsia. EXTREMITIES: Denies muscle weakness, joint pain, pain on walking or stiffness. PHYSICAL EXAMINATION: VITAL SIGNS: Temperature afebrile, pulse 98, respirations 18, blood pressure 166/94. GENERAL: He is alert, cooperative. HEART: Normal S1, S2. LUNGS: Clear. ABDOMEN: Soft, distended. There are clean and intact trocar sites with clean bandaging. ENDOCRINE: No thyromegaly. LYMPHATICS: No cervical nodes. HEMATOPOIETIC: No bruising. EXTREMITIES: No edema. PSYCHIATRIC: He is stable. LABORATORY DATA: White count 15, hemoglobin 19, platelets 214. Electrolytes are normal. Drug screen positive for cannabinoids. Urinalysis negative. INR 1. ASSESSMENT AND PLAN: Postop laparoscopic appendectomy. The patient has been admitted. We are doing wound care, IV narcotics, IV Zofran. Home meds, IV fluids, PT, OT, frequent labs. Hope to discharge tomorrow. MISAEL LOZANO DO DR: DAKSHA/tyler JOB#: [id number] / [id number]
[2018-10-02] MEDS ORDERED: DOCUSATE SODIUM 100 MG CAPSULE. PO PRN (19:45)
[2018-10-02] MEDS ORDERED: ZOLPIDEM 5 MG TABLET. PO PRN (20:15)
[2018-10-02] MEDS ORDERED: amLODIPine BESYLATE 10 MG TABLET PO ONE (20:30)
--- NOTE | 2018-10-03 01:23 | NUR ---
Report rcvd. from JAMI Falcon, and assuming care of this pt at this time, will continue to monitor.
[2018-10-03] MEDS: oxyCODONE/APAP 5/325 1 TAB TABLET PO PRN (01:56)
[2018-10-03 03:00] VITALS: BP 149/89
[2018-10-03 07:00] VITALS: BP 149/88
--- NOTE | 2018-10-03 08:29 | PDOC2 ---
CARDIAC CONSULT DATE OF CONSULT Date of Consult DATE: 10/03/18 TIME: 08:18 REASON FOR CONSULT Reason for Consult: PVC's Trigeminy REFERRING PHYSICIAN Referring Physician: Dr. Alonzo SOURCE Source: Chart review, Patient HISTORY OF PRESENT ILLNESS HISTORY OF PRESENT ILLNESS This is a 63 yo male who presented secondary to RLQ pain x 2 days. Worse day of arrival. CT abdomen/pelvis notable for acute appendicitis. Patient underwent appendectomy 10/02/18. Telemetry was notable for frequent PVC's, which prompted this consult. Patient denies any chest pain, palpitations, dizziness, diaphoresis, SOA, or nausea/vomiting. Does report BP is high at home and dealing with alot of stress recently. Does not feel like Norvasc is adequate for BP control at home. No previous h/o CAD. Had a stress test about 6 years ago and thinks this was normal; no further workup was recommended. PAST MEDICAL HISTORY Cardiovascular: HTN, Hyperlipidemia Pulmonary: COPD CENTRAL NERVOUS SYSTEM: Other (no pertinent hx) GI: No pertinent hx Heme/Onc: No pertinent hx Hepatobiliary: Hep A/B/C (C) Psych: Anxiety, Bipolar Musculoskeletal: Osteoarthritis Rheumatologic: No pertinent hx Infectious disease: No pertinent hx ENT: No pertinent hx Renal/: No pertinent hx Endocrine: No pertinent hx Dermatology: No pertinent hx PAST SURGICAL HISTORY Past Surgical History: Hernia Repair FAMILY HISTORY Family History: Hypertension SOCIAL HISTORY Smoke: <1 pack per day ALCOHOL: none Drugs: Marijuana (ocassional ) Lives: Alone CURRENT MEDICATIONS CURRENT MEDICATIONS Current Medications Medications (Trade) Dose Ordered Sig/Edwin Route PRN Reason Start Time Stop Time Status Last Admin Dose Admin Oxycodone/ Acetaminophen (Percocet 5/325) 1 tab PRN Q4HRS PRN PO PAIN 10/02/18 09:00 10/03/18 01:56 Oxycodone/ Acetaminophen (Percocet 5/325) 2 tab PRN Q4HRS PRN PO PAIN 10/02/18 09:15 10/02/18 16:22 Albuterol Sulfate (Ventolin Neb Soln) 2.5 mg 1X ONCE NEB 10/02/18 10:00 10/02/18 10:01 DC 10/02/18 09:44 Nicotine (Nicoderm Cq 21mg) 1 patch DAILY TD 10/02/18 11:00 10/02/18 11:19 Docusate Sodium (Colace) 100 mg PRN DAILY PRN PO CONSTIPATION 10/02/18 19:45 10/02/18 20:36 Amlodipine Besylate (Norvasc) 10 mg ONCE ONCE PO 10/02/18 20:30 10/02/18 20:31 DC 10/02/18 20:31 Zolpidem Tartrate (Ambien) 5 mg PRN QHS PRN PO INSOMNIA 10/02/18 20:15 10/02/18 20:31 ALLERGIES ALLERGIES: Coded Allergies: Penicillins (Verified Allergy, Intermediate, hives, sweaty, 06/28/16) ROS Review of System 14 point ROS conducted with pertinent positives noted above in HPI. PHYSICAL EXAM General: Alert, Oriented X3, Cooperative, No acute distress HEENT: Atraumatic, Mucous membr. moist/pink Lungs: Other (wheezes throughout) Heart: Regular rate, Normal S1, Normal S2 Abdomen: Soft, Other (mild incisional tenderness) Extremities: No edema, Normal pulses Skin: No breakdown, No significant lesion Neuro: Normal speech, Sensation intact Psych/Mental Status: Mental status NL, Mood NL MUSCULOSKELETAL: No joint tenderness VITALS VITALS Vital Signs Date Time Temp Pulse Resp B/P (MAP) Pulse Ox O2 Delivery O2 Flow Rate FiO2 10/03/18 07:00 97.6 72 20 149/88 (108) 95 Room Air 97.6 10/02/18 10:20 2 LABS Lab: Laboratory Tests Test 10/02/18 12:30 Magnesium Level 1.9 mg/dL (1.8-2.4) Thyroid Stimulating Hormone (TSH) 1.095 uIU/mL (0.358-3.74) ASSESSMENT/PLAN ASSESSMENT/PLAN 1. Arrhythmia; telemetry reviewed. Had frequent PVC's post-operatively. Now maintaining NSR 2. Acute appendicitis; s/p appendectomy. POD #1 3. Hypertension; mildly elevated 4. Hyperlipidemia; not on statin 5. Hepatitis C 6. Tobaccoism 7. Marijuana use Recommendations Add lisinopril for better BP control Check echo to ass LV systolic function Keep Mg >2.0 and K >4.0 check lipids- statin if indicated Discussed and encouraged tobacco and marijuana cessation. ASA 81mg if okay with surgery. Continue post-op management as per surgical team CAROLINA CORBIN APRN Oct 03, 2018 08:29
--- NOTE | 2018-10-03 08:40 | PDOC ---
PROGRESS NOTES Subjective Subjective better today Objective Objective Vital Signs Date Time Temp Pulse Resp B/P (MAP) Pulse Ox O2 Delivery O2 Flow Rate FiO2 10/03/18 07:00 97.6 72 20 149/88 (108) 95 Room Air 97.6 10/02/18 10:20 2 Intake and Output 10/03/18 07:01 Intake Total 1320 ml Output Total 1160 ml Balance 160 ml Intake Oral 820 ml IV Total 500 ml Output Urine Total 1150 ml Estimated Blood Loss 10 ml Physical Exam Abdomen: Soft Assessment Assessment Problems Medical Problems: (1) Acute appendicitis Status: Acute Plan Plan of Care ok to discharge, pain script in chart; FU with me in 2 weeks in office, call for appt [phone] Comment Review of Relevant I have reviewed the following items maria m (where applicable) has been applied. Labs Laboratory Tests Test 10/01/18 19:00 10/01/18 20:55 10/02/18 12:30 White Blood Count 15.0 x10^3/uL (4.0-11.0) Red Blood Count 5.62 x10^6/uL (4.30-5.70) Hemoglobin 18.8 g/dL (13.0-17.5) Hematocrit 54.3 % (39.0-53.0) Mean Corpuscular Volume 97 fL (79-100) Mean Corpuscular Hemoglobin 33 pg (25-35) Mean Corpuscular Hemoglobin Concent 35 g/dL (31-37) Red Cell Distribution Width 13.2 % (11.5-14.5) Platelet Count 214 x10^3/uL (140-400) Neutrophils (%) (Auto) 72 % (31-73) Lymphocytes (%) (Auto) 20 % (24-48) Monocytes (%) (Auto) 7 % (0-9) Eosinophils (%) (Auto) 0 % (0-3) Basophils (%) (Auto) 0 % (0-3) Neutrophils # (Auto) 10.9 x10^3uL (1.8-7.7) Lymphocytes # (Auto) 2.9 x10^3/uL (1.0-4.8) Monocytes # (Auto) 1.1 x10^3/uL (0.0-1.1) Eosinophils # (Auto) 0.1 x10^3/uL (0.0-0.7) Basophils # (Auto) 0.1 x10^3/uL (0.0-0.2) Prothrombin Time 13.1 SEC (11.7-14.0) Prothromb Time International Ratio 1.0 (0.8-1.1) Sodium Level 143 mmol/L (136-145) Potassium Level 3.9 mmol/L (3.5-5.1) Chloride Level 104 mmol/L (98-107) Carbon Dioxide Level 29 mmol/L (21-32) Anion Gap 10 (6-14) Blood Urea Nitrogen 16 mg/dL (8-26) Creatinine 1.1 mg/dL (0.7-1.3) Estimated GFR (Cockcroft-Gault) 67.4 BUN/Creatinine Ratio 15 (6-20) Glucose Level 115 mg/dL (70-99) Calcium Level 10.1 mg/dL (8.5-10.1) Total Bilirubin 1.2 mg/dL (0.2-1.0) Aspartate Amino Transf (AST/SGOT) 37 U/L (15-37) Alanine Aminotransferase (ALT/SGPT) 77 U/L (16-63) Alkaline Phosphatase 63 U/L (46-116) Ammonia 14 mcmol/L (11-34) Troponin I Quantitative 0.034 ng/mL (0.000-0.055) Total Protein 7.6 g/dL (6.4-8.2) Albumin 3.6 g/dL (3.4-5.0) Albumin/Globulin Ratio 0.9 (1.0-1.7) Lipase 146 U/L (73-393) Urine Collection Type Unknown Urine Color Yellow Urine Clarity Cloudy Urine pH 7.0 Urine Specific [place] >=1.030 Urine Protein Negative mg/dL (NEG-TRACE) Urine Glucose (UA) Negative mg/dL (NEG) Urine Ketones (Stick) Trace mg/dL (NEG) Urine Blood Small (NEG) Urine Nitrite Negative (NEG) Urine Bilirubin Negative (NEG) Urine Urobilinogen Dipstick 1.0 mg/dL (0.2 mg/dL) Urine Leukocyte Esterase Negative (NEG) Urine RBC 3-5 /HPF (0-2) Urine WBC Occ /HPF (0-4) Urine Squamous Epithelial Cells Occ /LPF Urine Bacteria 0 /HPF (0-FEW) Urine Hyaline Casts Few /HPF Urine Mucus Marked /LPF Urine Opiates Screen Neg (NEG) Urine Methadone Screen Neg (NEG) Urine Barbiturates Neg (NEG) Urine Phencyclidine Screen Neg (NEG) Urine Amphetamine/Methamphetamine Neg (NEG) Urine Benzodiazepines Screen Neg (NEG) Urine Cocaine Screen Neg (NEG) Urine Cannabinoids Screen Pos (NEG) Urine Ethyl Alcohol Neg (NEG) Magnesium Level 1.9 mg/dL (1.8-2.4) Thyroid Stimulating Hormone (TSH) 1.095 uIU/mL (0.358-3.74) Laboratory Tests Test 10/02/18 12:30 Magnesium Level 1.9 mg/dL (1.8-2.4) Thyroid Stimulating Hormone (TSH) 1.095 uIU/mL (0.358-3.74) Medications Current Medications Sodium Chloride 1,000 ml @ 1,000 mls/hr 1X ONCE IV Last administered on 10/01at 18:15; Start 10/01/18 at 18:15; Stop 10/01/18 at 19:14; Status DC Ondansetron HCl (Zofran) 4 mg 1X ONCE IV Last administered on 10/01/18at 18:15 ; Start 10/01/18 at 18:15; Stop 10/01/18 at 18:16; Status DC Fentanyl Citrate (Fentanyl 2ml Vial) 50 mcg 1X ONCE IV Last administered on at 19:15; Start 10/01/18 at 18:15; Stop 10/01/18 at 18:16; Status DC Iohexol (Omnipaque 300 Mg/ml) 75 ml 1X ONCE IV Last administered on at 19:56; Start 10/01/18 at 19:45; Stop 10/01/18 at 19:46; Status DC Info (CONTRAST GIVEN -- Rx MONITORING) 1 each PRN DAILY PRN MC SEE COMMENTS; Start 10/01/18 at 19:45; Stop 10/03/18 at 19:44 Ketorolac Tromethamine (Toradol 30mg Vial) 30 mg 1X ONCE IV Last administered on 10/01/18at 20:05; Start 10/01/18 at 20:00; Stop 10/01/18 at 20:01; Status DC Fentanyl Citrate (Fentanyl 2ml Vial) 50 mcg 1X ONCE IV Last administered on at 20:05; Start 10/01/18 at 20:00; Stop 10/01/18 at 20:01; Status DC Clonidine HCl (Catapres) 0.1 mg 1X ONCE PO Last administered on 10/01/18at 22: 30; Start 10/01/18 at 21:30; Stop 10/01/18 at 21:31; Status DC Fentanyl Citrate (Fentanyl 2ml Vial) 50 mcg 1X ONCE IV Last administered on at 21:45; Start 10/01/18 at 21:45; Stop 10/01/18 at 21:46; Status DC Ciprofloxacin/ Dextrose 200 ml @ 200 mls/hr BID IV Last administered on at 20:36; Start 10/01/18 at 22:00 Metronidazole 100 ml @ 100 mls/hr Q12HR IV Last administered on 10/02/18at 19:59 ; Start 10/01/18 at 22:00 Dextrose/Sodium Chloride 1,000 ml @ 100 mls/hr 1X ONCE IV Last administered on 10/01/18at 23:21; Start 10/01/18 at 22:00; Stop 10/02/18 at 07:59; Status DC Morphine Sulfate (Morphine Sulfate) 2 mg PRN Q3HRS PRN IV PAIN Last administered on 10/02/18at 07:28; Start 10/02/18 at 02:45 Ondansetron HCl (Zofran) 4 mg PRN Q6HRS PRN IV NAUSEA/VOMITING; Start 10/02/18 at 02:45 Propofol 20 ml @ As Directed STK-MED ONCE IV ; Start 10/02/18 at 06:46; Stop 10/02 at 06:48; Status DC Dexamethasone Sodium Phosphate (Decadron) 20 mg STK-MED ONCE .ROUTE ; Start 10/02 at 06:46; Stop 10/02/18 at 06:48; Status DC Lidocaine HCl (Lidocaine Pf 2% Vial) 5 ml STK-MED ONCE .ROUTE ; Start 10/02/18 at 06:46; Stop 10/02/18 at 06:48; Status DC Ondansetron HCl (Zofran) 4 mg STK-MED ONCE .ROUTE ; Start 10/02/18 at 06:46; Stop 10/02/18 at 06:48; Status DC Succinylcholine Chloride (Anectine) 200 mg STK-MED ONCE .ROUTE ; Start 10/02/18 at 06:47; Stop 10/02/18 at 06:48; Status DC Rocuronium [place] (Zemuron) 50 mg STK-MED ONCE .ROUTE ; Start 10/02/18 at 06:47 ; Stop 10/02/18 at 06:48; Status DC Fentanyl Citrate (Fentanyl 2ml Vial) 100 mcg STK-MED ONCE .ROUTE ; Start at 06:47; Stop 10/02/18 at 06:49; Status DC Bupivacaine HCl/ Epinephrine Bitart (Sensorcain-Mpf Epi 0.5%-1:158479) 30 ml STK -MED ONCE .ROUTE Last administered on 10/02/18at 08:13; Start 10/02/18 at 07:11; Stop 10/02/18 at 07:13; Status DC Ondansetron HCl (Zofran) 4 mg PRN Q6HRS PRN IV NAUSEA/VOMITING; Start 10/02/18 at 07:45; Stop 10/02/18 at 18:00; Status DC Fentanyl Citrate (Fentanyl 2ml Vial) 25 mcg PRN Q5MIN PRN IV MILD PAIN; Start 10/02/18 at 07:45; Stop 10/02/18 at 18:00; Status DC Fentanyl Citrate (Fentanyl 2ml Vial) 50 mcg PRN Q5MIN PRN IV MODERATE TO SEVERE PAIN; Start 10/02/18 at 07:45; Stop 10/02/18 at 18:00; Status DC Morphine Sulfate (Morphine Sulfate) 1 mg PRN Q10MIN PRN IV SEVERE PAIN; Start 10/02/18 at 07:45; Stop 10/02/18 at 18:00; Status DC Ringer's Solution 1,000 ml @ 30 mls/hr Q24H IV Last administered on 10/02/18at 09:35; Start 10/02/18 at 07:30; Stop 10/02/18 at 18:00; Status DC Lidocaine HCl (Xylocaine-Mpf 1% 2ml Vial) 2 ml 1X PRN PRN ID IV START; Start at 07:45; Stop 10/02/18 at 18:00; Status DC Hydromorphone HCl (Dilaudid) 0.5 mg PRN Q10MIN PRN IV SEV PAIN, Second choice; Start 10/02/18 at 07:45; Stop 10/02/18 at 18:00; Status DC Prochlorperazine Edisylate (Compazine) 5 mg PACU PRN PRN IV NAUSEA, MRX1; Start 10/02/18 at 07:45; Stop 10/02/18 at 18:00; Status DC Neostigmine Methylsulfate (Neostigmine Methylsulfate) 5 mg STK-MED ONCE .ROUTE ; Start 10/02/18 at 08:19; Stop 10/02/18 at 08:20; Status DC Glycopyrrolate (Robinul) 1 mg STK-MED ONCE .ROUTE ; Start 10/02/18 at 08:19; Stop 10/02/18 at 08:21; Status DC Ketorolac Tromethamine (Toradol For Or Only) 30 mg STK-MED ONCE INJ ; Start 10/02 at 08:22; Stop 10/02/18 at 08:24; Status DC Sevoflurane (Ultane) 60 ml STK-MED ONCE IH ; Start 10/02/18 at 08:22; Stop at 08:24; Status DC Fentanyl Citrate (Fentanyl 2ml Vial) 100 mcg STK-MED ONCE .ROUTE ; Start at 08:23; Stop 10/02/18 at 08:25; Status DC Hydralazine HCl (Apresoline Inj) 20 mg STK-MED ONCE .ROUTE ; Start 10/02/18 at 08 :24; Stop 10/02/18 at 08:26; Status DC Ephedrine Sulfate (Akovaz) 50 mg STK-MED ONCE .ROUTE ; Start 10/02/18 at 08:40; Stop 10/02/18 at 08:42; Status DC Oxycodone/ Acetaminophen (Percocet 5/325) 1 tab PRN Q4HRS PRN PO PAIN Last administered on 10/03/18at 01:56; Start 10/02/18 at 09:00 Oxycodone/ Acetaminophen (Percocet 5/325) 2 tab PRN Q4HRS PRN PO PAIN Last administered on 10/02/18at 16:22; Start 10/02/18 at 09:15 Albuterol Sulfate (Ventolin Neb Soln) 2.5 mg 1X ONCE NEB Last administered on 10/02/18at 09:44; Start 10/02/18 at 10:00; Stop 10/02/18 at 10:01; Status DC Nicotine (Nicoderm Cq 21mg) 1 patch DAILY TD Last administered on 10/02/18at 11: 19; Start 10/02/18 at 11:00 Docusate Sodium (Colace) 100 mg PRN DAILY PRN PO CONSTIPATION Last administered on 10/02/18at 20:36; Start 10/02/18 at 19:45 Amlodipine Besylate (Norvasc) 10 mg ONCE ONCE PO Last administered on at 20:31; Start 10/02/18 at 20:30; Stop 10/02/18 at 20:31; Status DC Amlodipine Besylate (Norvasc) 5 mg DAILY PO ; Start 10/03/18 at 09:00 Zolpidem Tartrate (Ambien) 5 mg PRN QHS PRN PO INSOMNIA Last administered on 10/02/18at 20:31; Start 10/02/18 at 20:15 Active Scripts Active Hydrocodone-Apap 5-325 (Hydrocodone Bit/Acetaminophen) 1 Each Tablet 1 Tab PO PRN Q6HRS PRN Bactrim Ds Tablet (Sulfamethoxazole/Trimethoprim) 1 Each Tablet 1 Tab PO BID [place] 5-325 Tablet (Acetaminophen/Hydrocodone Bitart) 1 Each Tablet 1-2 Tab PO Q4-6HRS Vitals/I & O Vital Sign - Last 24 Hours 10/02/18 10/02/18 10/02/18 10/02/18 09:01 09:01 09:16 09:31 Temp 98.3 98.3 Pulse 86 88 83 Resp 20 20 20 B/P (MAP) 154/75 148/80 152/76 Pulse Ox 96 92 92 O2 Delivery Mask Simple Mask Room Air Room Air O2 Flow Rate 10 10 10/02/18 10/02/18 10/02/18 10/02/18 09:45 09:46 10:01 10:15 Temp 98.5 98.0 98.5 98.0 Pulse 84 89 87 Resp 20 18 B/P (MAP) 139/75 151/86 166/94 (118) Pulse Ox 93 93 93 96 O2 Delivery Nasal Cannula Nasal Cannula Room Air Room Air O2 Flow Rate 1.0 2 10/02/18 10/02/18 10/02/18 10/02/18 10:20 10:30 10:45 11:00 Temp 98.0 98.0 Pulse 80 78 77 Resp 20 18 20 B/P (MAP) 144/88 (106) 146/84 (104) 150/90 (110) Pulse Ox 96 96 96 O2 Delivery Nasal Cannula Room Air Room Air Room Air O2 Flow Rate 2 10/02/18 10/02/18 10/02/18 10/02/18 12:00 13:30 14:00 15:05 Temp 98.0 98.0 98.0 98.0 Pulse 80 81 71 73 Resp 20 20 20 20 B/P (MAP) 147/84 (105) 143/78 (99) 233/81 (131) 140/79 (99) Pulse Ox 96 97 96 96 O2 Delivery Room Air Room Air Room Air Room Air 10/02/18 10/02/18 10/02/18 10/02/18 19:00 19:45 20:31 20:32 Temp 97.5 97.5 Pulse 76 76 Resp 16 B/P (MAP) 168/94 (118) 168/94 Pulse Ox 93 O2 Delivery Room Air Room Air Room Air 10/02/18 10/03/18 10/03/18 10/03/18 23:00 01:56 03:00 03:25 Temp 97.6 97.9 97.6 97.9 Pulse 80 78 Resp 18 16 16 16 B/P (MAP) 157/93 (114) 149/89 (109) Pulse Ox 94 94 O2 Delivery Room Air Room Air Room Air Room Air 10/03/18 07:00 Temp 97.6 97.6 Pulse 72 Resp 20 B/P (MAP) 149/88 (108) Pulse Ox 95 O2 Delivery Room Air Intake and Output 10/02/18 10/02/18 10/03/18 15:01 23:01 07:01 Intake Total 860 ml 360 ml 100 ml Output Total 560 ml 300 ml 300 ml Balance 300 ml 60 ml -200 ml BRITTANIE ROMERO MD Oct 03, 2018 08:40
[2018-10-03] MEDS ORDERED: amLODIPine BESYLATE 5 MG TABLET PO SCH (09:00)
[2018-10-03 09:06] LABS: CHOLESTEROL/HDL RATIO 3.3
[2018-10-03] MEDS: NICOTINE 21MG PATCH. TD SCH (09:24)
[2018-10-03] MEDS: CIPROFLOXACIN 400MG PREMIX 200 ML IV SCH (09:27)
--- NOTE | 2018-10-03 10:55 | NUR ---
SW following for discharge planning. Chart reviewed and discussed with RN. Pt is from home alone. RN denied and SW needs at this time. SW will continue to follow.
[2018-10-03 11:00] VITALS: BP 165/100
[2018-10-03] MEDS ORDERED: MAGNESIUM SULFATE 2GM 50 ML IV ONE (11:15)
--- NOTE | 2018-10-03 13:55 | PDOC ---
PROGRESS NOTES Chief Complaint Chief Complaint Postop laparoscopic appendectomy. History of Present Illness History of Present Illness pt. seen and examined Spoke with nursing at the bedside Vitals Vitals Vital Signs Date Time Temp Pulse Resp B/P (MAP) Pulse Ox O2 Delivery O2 Flow Rate FiO2 10/03/18 11:00 98.2 75 20 165/100 (121) 93 Room Air 98.2 10/02/18 10:20 2 Physical Exam General: Alert, Oriented X3, Cooperative, No acute distress Heart: Regular rate, Normal S1, Normal S2 Abdomen: Soft, Other (mild incisional tenderness) Extremities: No edema, Normal pulses Skin: No breakdown, No significant lesion Review of Systems Review of Systems denies chest pain denies sob Assessment and Plan Assessmemt and Plan Assessment POD#1 for appendectomy Post-op Tachycardia Plan Wound Care IV Narcotics IV Zofran Home Meds IV Fluids PT/OT Labs D/C today Comment Review of Relevant I have reviewed the following items maria m (where applicable) has been applied. Labs Laboratory Tests Test 10/01/18 19:00 10/01/18 20:55 10/02/18 12:30 White Blood Count 15.0 x10^3/uL (4.0-11.0) Red Blood Count 5.62 x10^6/uL (4.30-5.70) Hemoglobin 18.8 g/dL (13.0-17.5) Hematocrit 54.3 % (39.0-53.0) Mean Corpuscular Volume 97 fL (79-100) Mean Corpuscular Hemoglobin 33 pg (25-35) Mean Corpuscular Hemoglobin Concent 35 g/dL (31-37) Red Cell Distribution Width 13.2 % (11.5-14.5) Platelet Count 214 x10^3/uL (140-400) Neutrophils (%) (Auto) 72 % (31-73) Lymphocytes (%) (Auto) 20 % (24-48) Monocytes (%) (Auto) 7 % (0-9) Eosinophils (%) (Auto) 0 % (0-3) Basophils (%) (Auto) 0 % (0-3) Neutrophils # (Auto) 10.9 x10^3uL (1.8-7.7) Lymphocytes # (Auto) 2.9 x10^3/uL (1.0-4.8) Monocytes # (Auto) 1.1 x10^3/uL (0.0-1.1) Eosinophils # (Auto) 0.1 x10^3/uL (0.0-0.7) Basophils # (Auto) 0.1 x10^3/uL (0.0-0.2) Prothrombin Time 13.1 SEC (11.7-14.0) Prothromb Time International Ratio 1.0 (0.8-1.1) Sodium Level 143 mmol/L (136-145) Potassium Level 3.9 mmol/L (3.5-5.1) Chloride Level 104 mmol/L (98-107) Carbon Dioxide Level 29 mmol/L (21-32) Anion Gap 10 (6-14) Blood Urea Nitrogen 16 mg/dL (8-26) Creatinine 1.1 mg/dL (0.7-1.3) Estimated GFR (Cockcroft-Gault) 67.4 BUN/Creatinine Ratio 15 (6-20) Glucose Level 115 mg/dL (70-99) Calcium Level 10.1 mg/dL (8.5-10.1) Total Bilirubin 1.2 mg/dL (0.2-1.0) Aspartate Amino Transf (AST/SGOT) 37 U/L (15-37) Alanine Aminotransferase (ALT/SGPT) 77 U/L (16-63) Alkaline Phosphatase 63 U/L (46-116) Ammonia 14 mcmol/L (11-34) Troponin I Quantitative 0.034 ng/mL (0.000-0.055) Total Protein 7.6 g/dL (6.4-8.2) Albumin 3.6 g/dL (3.4-5.0) Albumin/Globulin Ratio 0.9 (1.0-1.7) Lipase 146 U/L (73-393) Urine Collection Type Unknown Urine Color Yellow Urine Clarity Cloudy Urine pH 7.0 Urine Specific [place] >=1.030 Urine Protein Negative mg/dL (NEG-TRACE) Urine Glucose (UA) Negative mg/dL (NEG) Urine Ketones (Stick) Trace mg/dL (NEG) Urine Blood Small (NEG) Urine Nitrite Negative (NEG) Urine Bilirubin Negative (NEG) Urine Urobilinogen Dipstick 1.0 mg/dL (0.2 mg/dL) Urine Leukocyte Esterase Negative (NEG) Urine RBC 3-5 /HPF (0-2) Urine WBC Occ /HPF (0-4) Urine Squamous Epithelial Cells Occ /LPF Urine Bacteria 0 /HPF (0-FEW) Urine Hyaline Casts Few /HPF Urine Mucus Marked /LPF Urine Opiates Screen Neg (NEG) Urine Methadone Screen Neg (NEG) Urine Barbiturates Neg (NEG) Urine Phencyclidine Screen Neg (NEG) Urine Amphetamine/Methamphetamine Neg (NEG) Urine Benzodiazepines Screen Neg (NEG) Urine Cocaine Screen Neg (NEG) Urine Cannabinoids Screen Pos (NEG) Urine Ethyl Alcohol Neg (NEG) Magnesium Level 1.9 mg/dL (1.8-2.4) Triglycerides Level 58 mg/dL (0-150) Cholesterol Level 122 mg/dL (0-200) LDL Cholesterol, Calculated 73 mg/dL (0-100) VLDL Cholesterol, Calculated 12 mg/dL (0-40) Non-HDL Cholesterol Calculated 85 mg/dL (0-129) HDL Cholesterol 37 mg/dL (40-60) Cholesterol/HDL Ratio 3.3 Thyroid Stimulating Hormone (TSH) 1.095 uIU/mL (0.358-3.74) Medications Current Medications Sodium Chloride 1,000 ml @ 1,000 mls/hr 1X ONCE IV Last administered on 10/01at 18:15; Start 10/01/18 at 18:15; Stop 10/01/18 at 19:14; Status DC Ondansetron HCl (Zofran) 4 mg 1X ONCE IV Last administered on 10/01/18at 18:15 ; Start 10/01/18 at 18:15; Stop 10/01/18 at 18:16; Status DC Fentanyl Citrate (Fentanyl 2ml Vial) 50 mcg 1X ONCE IV Last administered on at 19:15; Start 10/01/18 at 18:15; Stop 10/01/18 at 18:16; Status DC Iohexol (Omnipaque 300 Mg/ml) 75 ml 1X ONCE IV Last administered on at 19:56; Start 10/01/18 at 19:45; Stop 10/01/18 at 19:46; Status DC Info (CONTRAST GIVEN -- Rx MONITORING) 1 each PRN DAILY PRN MC SEE COMMENTS; Start 10/01/18 at 19:45; Stop 10/03/18 at 19:44 Ketorolac Tromethamine (Toradol 30mg Vial) 30 mg 1X ONCE IV Last administered on 10/01/18at 20:05; Start 10/01/18 at 20:00; Stop 10/01/18 at 20:01; Status DC Fentanyl Citrate (Fentanyl 2ml Vial) 50 mcg 1X ONCE IV Last administered on at 20:05; Start 10/01/18 at 20:00; Stop 10/01/18 at 20:01; Status DC Clonidine HCl (Catapres) 0.1 mg 1X ONCE PO Last administered on 10/01/18at 22: 30; Start 10/01/18 at 21:30; Stop 10/01/18 at 21:31; Status DC Fentanyl Citrate (Fentanyl 2ml Vial) 50 mcg 1X ONCE IV Last administered on at 21:45; Start 10/01/18 at 21:45; Stop 10/01/18 at 21:46; Status DC Ciprofloxacin/ Dextrose 200 ml @ 200 mls/hr BID IV Last administered on at 09:27; Start 10/01/18 at 22:00 Metronidazole 100 ml @ 100 mls/hr Q12HR IV Last administered on 10/03/18 09:27 ; Start 10/01/18 at 22:00 Dextrose/Sodium Chloride 1,000 ml @ 100 mls/hr 1X ONCE IV Last administered on 10/01/18at 23:21; Start 10/01/18 at 22:00; Stop 10/02/18 at 07:59; Status DC Morphine Sulfate (Morphine Sulfate) 2 mg PRN Q3HRS PRN IV PAIN Last administered on 10/02/18at 07:28; Start 10/02/18 at 02:45 Ondansetron HCl (Zofran) 4 mg PRN Q6HRS PRN IV NAUSEA/VOMITING; Start 10/02/18 at 02:45 Propofol 20 ml @ As Directed STK-MED ONCE IV ; Start 10/02/18 at 06:46; Stop 10/02 at 06:48; Status DC Dexamethasone Sodium Phosphate (Decadron) 20 mg STK-MED ONCE .ROUTE ; Start 10/02 at 06:46; Stop 10/02/18 at 06:48; Status DC Lidocaine HCl (Lidocaine Pf 2% Vial) 5 ml STK-MED ONCE .ROUTE ; Start 10/02/18 at 06:46; Stop 10/02/18 at 06:48; Status DC Ondansetron HCl (Zofran) 4 mg STK-MED ONCE .ROUTE ; Start 10/02/18 at 06:46; Stop 10/02/18 at 06:48; Status DC Succinylcholine Chloride (Anectine) 200 mg STK-MED ONCE .ROUTE ; Start 10/02/18 at 06:47; Stop 10/02/18 at 06:48; Status DC Rocuronium [place] (Zemuron) 50 mg STK-MED ONCE .ROUTE ; Start 10/02/18 at 06:47 ; Stop 10/02/18 at 06:48; Status DC Fentanyl Citrate (Fentanyl 2ml Vial) 100 mcg STK-MED ONCE .ROUTE ; Start at 06:47; Stop 10/02/18 at 06:49; Status DC Bupivacaine HCl/ Epinephrine Bitart (Sensorcain-Mpf Epi 0.5%-1:[id number]) 30 ml STK -MED ONCE .ROUTE Last administered on 10/02/18at 08:13; Start 10/02/18 at 07:11; Stop 10/02/18 at 07:13; Status DC Ondansetron HCl (Zofran) 4 mg PRN Q6HRS PRN IV NAUSEA/VOMITING; Start 10/02/18 at 07:45; Stop 10/02/18 at 18:00; Status DC Fentanyl Citrate (Fentanyl 2ml Vial) 25 mcg PRN Q5MIN PRN IV MILD PAIN; Start 10/02/18 at 07:45; Stop 10/02/18 at 18:00; Status DC Fentanyl Citrate (Fentanyl 2ml Vial) 50 mcg PRN Q5MIN PRN IV MODERATE TO SEVERE PAIN; Start 10/02/18 at 07:45; Stop 10/02/18 at 18:00; Status DC Morphine Sulfate (Morphine Sulfate) 1 mg PRN Q10MIN PRN IV SEVERE PAIN; Start 10/02/18 at 07:45; Stop 10/02/18 at 18:00; Status DC Ringer's Solution 1,000 ml @ 30 mls/hr Q24H IV Last administered on 10/02/18at 09:35; Start 10/02/18 at 07:30; Stop 10/02/18 at 18:00; Status DC Lidocaine HCl (Xylocaine-Mpf 1% 2ml Vial) 2 ml 1X PRN PRN ID IV START; Start at 07:45; Stop 10/02/18 at 18:00; Status DC Hydromorphone HCl (Dilaudid) 0.5 mg PRN Q10MIN PRN IV SEV PAIN, Second choice; Start 10/02/18 at 07:45; Stop 10/02/18 at 18:00; Status DC Prochlorperazine Edisylate (Compazine) 5 mg PACU PRN PRN IV NAUSEA, MRX1; Start 10/02/18 at 07:45; Stop 10/02/18 at 18:00; Status DC Neostigmine Methylsulfate (Neostigmine Methylsulfate) 5 mg STK-MED ONCE .ROUTE ; Start 10/02/18 at 08:19; Stop 10/02/18 at 08:20; Status DC Glycopyrrolate (Robinul) 1 mg STK-MED ONCE .ROUTE ; Start 10/02/18 at 08:19; Stop 10/02/18 at 08:21; Status DC Ketorolac Tromethamine (Toradol For Or Only) 30 mg STK-MED ONCE INJ ; Start 10/02 at 08:22; Stop 10/02/18 at 08:24; Status DC Sevoflurane (Ultane) 60 ml STK-MED ONCE IH ; Start 10/02/18 at 08:22; Stop at 08:24; Status DC Fentanyl Citrate (Fentanyl 2ml Vial) 100 mcg STK-MED ONCE .ROUTE ; Start at 08:23; Stop 10/02/18 at 08:25; Status DC Hydralazine HCl (Apresoline Inj) 20 mg STK-MED ONCE .ROUTE ; Start 10/02/18 at 08 :24; Stop 10/02/18 at 08:26; Status DC Ephedrine Sulfate (Akovaz) 50 mg STK-MED ONCE .ROUTE ; Start 10/02/18 at 08:40; Stop 10/02/18 at 08:42; Status DC Oxycodone/ Acetaminophen (Percocet 5/325) 1 tab PRN Q4HRS PRN PO PAIN Last administered on 10/03/18 01:56; Start 10/02/18 at 09:00 Oxycodone/ Acetaminophen (Percocet 5/325) 2 tab PRN Q4HRS PRN PO PAIN Last administered on 10/02/18at 16:22; Start 10/02/18 at 09:15 Albuterol Sulfate (Ventolin Neb Soln) 2.5 mg 1X ONCE NEB Last administered on 10/02/18 09:44; Start 10/02/18 at 10:00; Stop 10/02/18 at 10:01; Status DC Nicotine (Nicoderm Cq 21mg) 1 patch DAILY TD Last administered on 10/03/18 09: 24; Start 10/02/18 at 11:00 Docusate Sodium (Colace) 100 mg PRN DAILY PRN PO CONSTIPATION Last administered on 10/02/18at 20:36; Start 10/02/18 at 19:45 Amlodipine Besylate (Norvasc) 10 mg ONCE ONCE PO Last administered on at 20:31; Start 10/02/18 at 20:30; Stop 10/02/18 at 20:31; Status DC Amlodipine Besylate (Norvasc) 5 mg DAILY PO Last administered on 10/03/18 09:19 ; Start 10/03/18 at 09:00 Zolpidem Tartrate (Ambien) 5 mg PRN QHS PRN PO INSOMNIA Last administered on 20:31; Start 10/02/18 at 20:15 Lisinopril (Prinivil) 20 mg DAILY PO ; Start 10/04/18 at 09:00 Lactobacillus Rhamnosus (Culturelle) 1 cap BID PO ; Start 10/03/18 at 21:00 Magnesium Sulfate 50 ml @ 25 mls/hr 1X ONCE IV ; Start 10/03/18 at 11:15; Stop 10/03/18 at 13:14; Status DC Active Scripts Active Hydrocodone-Apap 5-325 (Hydrocodone Bit/Acetaminophen) 1 Each Tablet 1 Tab PO PRN Q6HRS PRN Bactrim Ds Tablet (Sulfamethoxazole/Trimethoprim) 1 Each Tablet 1 Tab PO BID [place] 5-325 Tablet (Acetaminophen/Hydrocodone Bitart) 1 Each Tablet 1-2 Tab PO Q4-6HRS Vitals/I & O Vital Sign - Last 24 Hours 1/1/19 1/1/19 1/1/19 1/1/19 14:00 15:05 19:00 19:45 Temp 98.0 97.5 98.0 97.5 Pulse 71 73 76 Resp 20 20 16 B/P (MAP) 233/81 (131) 140/79 (99) 168/94 (118) Pulse Ox 96 96 93 O2 Delivery Room Air Room Air Room Air Room Air 10/02/18 10/02/18 10/02/18 10/03/18 20:31 20:32 23:00 01:56 Temp 97.6 97.6 Pulse 76 80 Resp 18 16 B/P (MAP) 168/94 157/93 (114) Pulse Ox 94 O2 Delivery Room Air Room Air Room Air 10/03/18 10/03/18 10/03/18 10/03/18 03:00 03:25 07:00 07:45 Temp 97.9 97.6 97.9 97.6 Pulse 78 72 Resp 16 16 20 B/P (MAP) 149/89 (109) 149/88 (108) Pulse Ox 94 95 O2 Delivery Room Air Room Air Room Air Room Air 10/03/18 10/03/18 09:19 11:00 Temp 98.2 98.2 Pulse 72 75 Resp 20 B/P (MAP) 149/88 165/100 (121) Pulse Ox 93 O2 Delivery Room Air Intake and Output 10/02/18 10/02/18 10/03/18 15:01 23:01 07:01 Intake Total 860 ml 360 ml 100 ml Output Total 560 ml 300 ml 300 ml Balance 300 ml 60 ml -200 ml MISAEL LOZANO III DO Oct 03, 2018 13:55
[2018-10-03 15:00] VITALS: BP 155/89
--- NOTE | 2018-10-03 15:39 | CARD ---
MR#: [id number] Date of Study: 10/03/2018 Ordering Physician: CAROLINA CORBIN, Referring Physician: SUZIE SALMERON Tech: Keisha Jha APPROVED REPORT EXAM: Two-dimensional and M-mode echocardiogram with Doppler and color Doppler. Other Information Quality : AverageHR: 79bpm INDICATION Pre-Ventricular contractions Trigeminy RISK FACTORS Hypertension Smoking 2D DIMENSIONS RVDd2.7 (2.9-3.5cm)Left Atrium(2D)3.8 (1.6-4.0cm) IVSd1.0 (0.7-1.1cm)Aortic Root(2D)3.5 (2.0-3.7cm) LVDd6.0 (3.9-5.9cm)LVOT Diameter2.6 (1.8-2.4cm) PWd1.2 (0.7-1.1cm)LVDs3.2 (2.5-4.0cm) FS (%) 46.7 %SV141.2 ml Aortic Valve AoV Peak Maciel.180.9cm/sAoV VTI34.6cm AO Peak GR.13.1mmHgLVOT Peak Maciel.77.9cm/s LVOT VTI 16.68cmAO Mean GR.8mmHg TASHA (VMAX)1.10ar5TVV (VTI)2.49cm2 AI P 1/2 Luiv078en Mitral Valve MV E Xngvgdii093.7cm/sMV DECEL VTCT654vz MV A Nfybflbn96.8cm/sMV FJG61my E/A Ratio1.1MVA (PHT)3.83cm2 TDI E/Lateral E'9.7E/Medial E'11.8 Pulmonary Valve PV Peak Jcmuivdc010.6cm/sPV Peak Grad.7mmHg Tricuspid Valve TR P. Atxkewpt871mn/sRAP UDUWMXKD1pyBi TR Peak Gr.20qnAhBQOQ03lwAi Pulmonary Vein S1 Dkiskner18.9cm/sD2 Iserkxsb44.2cm/s PVa gukikjom364elgw LEFT VENTRICLE The Left Ventricle is borderline dilated. There is mild concentric left ventricular hypertrophy. The left ventricular systolic function is normal and the ejection fraction is within normal range. The Ej ection Fraction is 50-55%. There is normal LV segmental wall motion. Transmitral Doppler flow pattern is Grade II-pseudonormal filling dynamics. RIGHT VENTRICLE The right ventricle is normal size. There is normal right ventricular wall thickness. The right ventr icular systolic function is normal. ATRIA The left atrium size is normal. The right atrium size is normal. The interatrial septum is intact wit h no evidence for an atrial septal defect or patent foramen ovale as noted on 2-D or Doppler imaging. AORTIC VALVE The aortic valve is normal in structure and function. Doppler and Color Flow revealed no significant aortic regurgitation. There is no significant aortic valvular stenosis. Calculated aortic valve area is 2.49 cm2 with maximum pressure gradient of 13 mmHg and mean pressure gradient of 8 mmHg. MITRAL VALVE The mitral valve is normal in structure and function. There is no evidence of mitral valve prolapse. There is no mitral valve stenosis. Doppler and Color-flow revealed trace mitral regurgitation. TRICUSPID VALVE The tricuspid valve is normal in structure and function. Doppler and Color Flow revealed trace tricus pid regurgitation. There is no tricuspid valve stenosis. PULMONIC VALVE The pulmonic valve is not well visualized. Doppler and Color Flow revealed no pulmonic valvular regur gitation. GREAT VESSELS The aortic root is normal in size. Normal pulmonary venous flow (Doppler). The IVC is normal in size and collapses >50% with inspiration. PERICARDIAL EFFUSION There is no evidence of significant pericardial effusion. Critical Notification Critical Value: No <Conclusion> The Left Ventricle is borderline dilated. The left ventricular systolic function is normal and the ejection fraction is within normal range. The Ejection Fraction is 50-55%. There is mild concentric left ventricular hypertrophy. There is no significant aortic valvular stenosis. Doppler and Color Flow revealed no significant aortic regurgitation. Doppler and Color-flow revealed trace mitral regurgitation. Doppler and Color Flow revealed trace tricuspid regurgitation. Signed by : Tomi Estes MD Electronically Approved : 10/03/2018 15:37:17
--- NOTE | 2018-10-03 16:00 | NUR ---
This nurse agrees with assessments and charting completed by CHAGO Cooley.
[2018-10-03] MEDS: MORPHINE SULFATE 4 MG/ML VIAL. IV PRN (16:58)
--- NOTE | 2018-10-03 18:10 | NUR ---
Pt discharged home with no additional services, by w/c to hospital entrance, accompanied by family. Education and information regarding Dx provided to Pt who verbalized understanding and had no further questions. One prescription for Percocet given, three prescriptions called in to pharmacy for Lisinopril 20 mg daily, Norvasc 5 mg daily and Bactrim 800/160 mg BID x 20 pills. No changes from previous assessment.
[2018-10-03] MEDS ORDERED: LACTOBACILLUS RHAMNOSUS GG 1 CAPSULE. PO SCH (21:00)
--- NOTE | 2018-10-04 08:40 | EKG ---
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
[2018-10-04] MEDS ORDERED: LISINOPRIL 20 MG TABLET PO SCH (09:00)
--- NOTE | 2018-10-05 09:10 | PATHOLOGY ---
[facility] Accession Number: [id number] . 01 Material submitted: . APPENDIX . 01 Clinical history: . Appendicitis . 02 Diagnosis: Appendix, laparoscopic appendectomy: - Acute appendicitis. (JPM:rufus; 10/04/2018) QMS/10/04/2018 . 02 Comment: There is no evidence of rupture. There is no evidence of malignancy. (JPM:rufus; 10/04/2018) . 02 Electronically signed: . Ross Porter MD, Pathologist NPI- [id number] . 01 Gross description: . The specimen is received in formalin, labeled "Be, Renny, appendix", is an appendix measuring 6.5 cm in length and up to 0.7 cm in diameter and with abundantly attached yellow lobulated mesoappendix measuring 7.2 x 2.2 x 1.2 cm. The proximal margin is closed by a linear staple line measuring 1.5 cm in length with an average 0.2 cm width. The staple line is removed and the adjacent serosa is inked black. The serosa is a diffusely covered with parson-white fibrinopurulent exudate that extends to the adjacent mesoappendix. The lumen is filled with rubi-brown, soft fecal material and no discrete fecalith. The wall has an average thickness of 0.1 cm. No discrete perforation or masses identified. [employer] tissue is submitted in A1-A2. (A1 = proximal to mid cross-section and A2 = distal tip, longitudinal bisected) (SWS; 10/03/2018) SHS/SHS . 02 Pathologist provided ICD-10: K35.80 . 02 CPT . 134812 Specimen Comment: A courtesy copy of this report has been sent to Specimen Comment: [phone], , . Specimen Comment: Report sent to ,DR SALMERON / DR TAYLOR Performed at: [address], [place] [id number] MD Mil Leon MD Phone: [phone] Performed at: 02 [facility] [address] [place], [place] [id number] MD Ross Porter MD Phone: [phone]
== END 2018-10-03 18:10 | disposition home or self-care (01) | DRG 341 ==
LOC: ER 17:32 → 4 NORTH 21:26
PROVIDERS: ADMIT Internal Medicine; ATTEND Internal Medicine
PROC: 0DTJ4ZZ Resection of Appendix, Percutaneous Endoscopic Approach (ICD-10-PCS; principal; 2018-10-02 07:30)
DX: K35.80 Unspecified acute appendicitis (principal); R65.11 Systemic inflammatory response syndrome (SIRS) of non-infectious origin with acute organ dysfunction; I97.191 Other postprocedural cardiac functional disturbances following other surgery; J44.9 Chronic obstructive pulmonary disease, unspecified; I10 Essential (primary) hypertension; B19.20 Unspecified viral hepatitis C without hepatic coma; I00 Rheumatic fever without heart involvement; Z82.49 Family history of ischemic heart disease and other diseases of the circulatory system; Z88.0 Allergy status to penicillin; F17.210 Nicotine dependence, cigarettes, uncomplicated; M19.90 Unspecified osteoarthritis, unspecified site; E78.5 Hyperlipidemia, unspecified; F31.9 Bipolar disorder, unspecified; F41.9 Anxiety disorder, unspecified; F12.90 Cannabis use, unspecified, uncomplicated; I49.3 Ventricular premature depolarization; Y83.8 Other surgical procedures as the cause of abnormal reaction of the patient, or of later complication, without mention of misadventure at the time of the procedure
CPT/HCPCS: 36415; 71046; 74177; 80053; 80061; 80307; 81001; 82140; 83690; 83735; 84443; 84484; 85025; 85610; 88304; 93005; 93306; 94640; 96361; 96374; 96375; 96376; A7015; J0330; J0360; J0744; J1100; J1885; J2001; J2270; J2405; J2704; J2710; J3010; J3475; J3490; J7030; J7120; J7613; Q9967; 99285-25

== ENCOUNTER 2019-11-10 08:09 | Emergency (ER) | payer MEDICARE, MEDICAID ==
[~2019-11-10] VITALS: Ht 185.4 cm; Wt 120.4 kg
--- NOTE | 2019-11-10 08:47 | PHYS DOC ---
Past Medical History Past Medical History: COPD, Hypertension, Hepatitis Additional Past Medical Histor: HEP C, RHEUMATIC FEVER, pancreatitis Past Surgical History: Other Additional Past Surgical Histo: HERNIA Smoking Status: Current Every Day Smoker Alcohol Use: Occasionally Drug Use: Marijuana Adult General Chief Complaint Chief Complaint: ABDOMINAL PAIN HPI HPI Patient is a 64 year old L who presented to ER today by EMS from home due to epigastric abdominal pain started yesterday. Patient has history of COPD, hypertension, hepatitis C. Patient smokes a pack a day. Patient is not on oxygen at home. Patient felt nauseous but no vomiting. Patient denies any diarrhea. Patient denies any trouble breathing. Patient had not taken his morning medi cations yet. Patient denies any headache, no fever. Patient has history hypertension, he been out of his blood pressure medications. He was on amlodipine 5 mg daily and 20 mg lisinopril daily. aLL OTHER ros IS NEGATIVE UNLESS OTHERWISE NOTED IN hpi Review of Systems Review of Systems See above Current Medications Current Medications Current Medications Medications (Trade) Dose Ordered Sig/Edwin Start Time Stop Time Status Last Admin Dose Admin Albuterol/ Ipratropium (Duoneb) 3 ml 1X ONCE 11/10/19 09:00 11/10/19 09:02 DC 11/10/19 09:10 3 ML Clonidine HCl (Catapres) 0.2 mg 1X ONCE 11/10/19 09:00 11/10/19 09:01 DC 11/10/19 08:52 0.2 MG Info (CONTRAST GIVEN -- Rx MONITORING) 1 each PRN DAILY PRN 11/10/19 10:30 11/12/19 10:29 Iohexol (Omnipaque 300 Mg/ml) 75 ml 1X ONCE 11/10/19 10:30 11/10/19 10:31 DC 11/10/19 10:27 75 ML Morphine Sulfate (Morphine Sulfate) 4 mg 1X ONCE 11/10/19 09:00 11/10/19 09:02 DC 11/10/19 09:04 4 MG Ondansetron HCl (Zofran) 8 mg 1X ONCE 11/10/19 09:00 11/10/19 09:02 DC 11/10/19 09:04 8 MG Allergies Allergies Allergies Coded Allergies Type Severity Reaction Last Updated Verified Penicillins Allergy Intermediate hives, sweaty 06/28/16 Yes Physical Exam Physical Exam See above Constitutional: Well developed, well nourished, no acute distress, non-toxic appearance. [] HENT: Normocephalic, atraumatic, bilateral external ears normal, oropharynx moist, no oral exudates, nose normal. [] Eyes: PERRLA, EOMI, conjunctiva normal, no discharge. [] Neck: Normal range of motion, no tenderness, supple, no stridor. [] Cardiovascular:Heart rate regular rhythm, no murmur, no pitting edema. Lungs & Thorax: Bilateral breath sounds with expiratory wheezing. NO RESPIRATORY DISTRESS. Abdomen: Bowel sounds normal, soft, There is tenderness to palpation in epigastric area, no masses, no pulsatile masses. [] Skin: Warm, dry, no erythema, no rash. [] Back: No tenderness, no CVA tenderness. [] Extremities: No tenderness, no cyanosis, no clubbing, ROM intact, no edema. [] Neurologic: Alert and oriented X 3, normal motor function, normal sensory function, no focal deficits noted. [] Psychologic: Affect normal, judgement normal, mood normal. [] Current Patient Data Vital Signs Vital Signs Date Time Temp Pulse Resp B/P (MAP) Pulse Ox O2 Delivery O2 Flow Rate FiO2 11/10/19 09:33 20 11/10/19 09:32 85 143/72 (95) 91 11/10/19 09:10 Room Air 11/10/19 08:13 98.1 98.1 Lab Values Laboratory Tests Test 11/10/19 08:32 11/10/19 11:10 White Blood Count 8.6 x10^3/uL (4.0-11.0) Red Blood Count 5.38 x10^6/uL (4.30-5.70) Hemoglobin 17.9 g/dL (13.0-17.5) H Hematocrit 52.5 % (39.0-53.0) Mean Corpuscular Volume 98 fL (79-100) Mean Corpuscular Hemoglobin 33 pg (25-35) Mean Corpuscular Hemoglobin Concent 34 g/dL (31-37) Red Cell Distribution Width 13.8 % (11.5-14.5) Platelet Count 191 x10^3/uL (140-400) Neutrophils (%) (Auto) 69 % (31-73) Lymphocytes (%) (Auto) 17 % (24-48) L Monocytes (%) (Auto) 11 % (0-9) H Eosinophils (%) (Auto) 2 % (0-3) Basophils (%) (Auto) 0 % (0-3) Neutrophils # (Auto) 6.0 x10^3/uL (1.8-7.7) Lymphocytes # (Auto) 1.5 x10^3/uL (1.0-4.8) Monocytes # (Auto) 1.0 x10^3/uL (0.0-1.1) Eosinophils # (Auto) 0.2 x10^3/uL (0.0-0.7) Basophils # (Auto) 0.0 x10^3/uL (0.0-0.2) Sodium Level 144 mmol/L (136-145) Potassium Level 3.8 mmol/L (3.5-5.1) Chloride Level 108 mmol/L (98-107) H Carbon Dioxide Level 30 mmol/L (21-32) Anion Gap 6 (6-14) Blood Urea Nitrogen 17 mg/dL (8-26) Creatinine 1.0 mg/dL (0.7-1.3) Estimated GFR (Cockcroft-Gault) 75.0 BUN/Creatinine Ratio 17 (6-20) Glucose Level 126 mg/dL (70-99) H Calcium Level 9.4 mg/dL (8.5-10.1) Magnesium Level 2.0 mg/dL (1.8-2.4) Total Bilirubin 0.9 mg/dL (0.2-1.0) Aspartate Amino Transferase (AST) 70 U/L (15-37) H Alanine Aminotransferase (ALT) 148 U/L (16-63) H Alkaline Phosphatase 88 U/L (46-116) Troponin I Quantitative < 0.017 ng/mL (0.000-0.055) FH-Tkp-O-Type Natriuretic Peptide 1158 pg/mL (0-124) H Total Protein 6.7 g/dL (6.4-8.2) Albumin 3.3 g/dL (3.4-5.0) L Albumin/Globulin Ratio 1.0 (1.0-1.7) Lipase 211 U/L (73-393) Urine Collection Type Unknown Urine Color Yellow Urine Clarity Clear Urine pH 5.5 Urine Specific [place] >=1.030 Urine Protein Negative mg/dL (NEG-TRACE) Urine Glucose (UA) Negative mg/dL (NEG) Urine Ketones (Stick) Negative mg/dL (NEG) Urine Blood Negative (NEG) Urine Nitrite Negative (NEG) Urine Bilirubin Negative (NEG) Urine Urobilinogen Dipstick 0.2 mg/dL (0.2 mg/dL) Urine Leukocyte Esterase Negative (NEG) Urine RBC Occ /HPF (0-2) Urine WBC 1-4 /HPF (0-4) Urine Squamous Epithelial Cells Occ /LPF Urine Bacteria Few /HPF (0-FEW) Urine Mucus Mod /LPF Laboratory Tests 11/10/19 08:32 Laboratory Tests 11/10/19 08:32 EKG EKG EKG was done at 08:50 amt, rate of 82 beats per minutes, sinus rhythm, no ST se gment elevation. Radiology/Procedures Radiology/Procedures [address] [address] IMAGING REPORT Signed PATIENT: ALLAGENEVIEVE ACCOUNT: [id number] : 1955 LOCATION: ER AGE: 64 SEX: M EXAM STATUS: PRE ER ORD. PHYSICIAN: ELIZABETH ROMERO DO REASON: soa PROCEDURE: CHEST AP ONLY Exam performed: One view chest. Indication: shortness of air Date of Service: 11/10/2019 9:01 AM Comparison: None available. Single AP upright portable view chest findings: Cardiomediastinal silhouette is within limits of normal. No acute infiltrates, effusion or pneumothorax is detected. The bony structures are normal. Impression: No acute cardiopulmonary process is detected. Electronically signed by: Whitley Khoury MD (11/10/2019 9:13 AM) [facility] DICTATED and SIGNED BY: WHITLEY KHOURY MD DATE: 11/10/[address] [address] IMAGING REPORT Signed PATIENT: GENEVIEVE GOLD ACCOUNT: [id number] : 1955 LOCATION: ER AGE: 64 SEX: M EXAM STATUS: REG ER ORD. PHYSICIAN: ELIZABETH ROMERO DO REASON: abdominal pain, nausea X 1 DAY PROCEDURE: CT ABD PELV W/ IV CONTRST ONLY Exam performed: CT abdomen and pelvis with contrast. HISTORY: Abdominal pain and nausea Date of service: 11/10/2019. COMPARISON: CT abdomen and pelvis from 10/01/2018. TECHNIQUE: Contiguous helical acquisitions are obtained through the abdomen and pelvis during intravenous administration of 75 cc of Omnipaque 300. Sagittal and coronal reformatted images are obtained and reviewed. FINDINGS: The demonstrate bibasilar atelectasis. Stable 4 mm nodule in the right lung base The visualized heart appears to be normal. Mild hepatic steatosis with tiny low attenuating nodules in the right hepatic lobe, small to be characterized, however likely cysts remain stable. Spleen and pancreas appear normal. Cholelithiasis. Both adrenal glands and bilateral kidneys are normal in size with symmetric excretion of contrast via both kidneys. Renal cysts. Diffuse atheromatous aortic calcification without aneurysm. The small bowel loops are nondilated and unremarkable. Small ventral abdominal wall hernia containing omental fat. Interval decrease in the size of previously seen mesenteric lymph nodes No inflammatory changes seen in the right lower quadrant. Prostatomegaly. Seminal vesicles and rectum appear normal. The urinary bladder is decompressed. Fat-containing ventral hernia. Bones are essentially normal. IMPRESSION: No acute intra-abdominal or pelvic process detected. Bilateral renal cysts. Probable hepatic cysts. Cholelithiasis. Prostatomegaly. PQRS Compliance Statement: One or more of the following individualized dose reduction techniques were utilized for this examination: 1. Automated exposure control 2. Adjustment of the mA and/or kV according to patient size 3. Use of iterative reconstruction technique Electronically signed by: Whitley Khoury MD (11/10/2019 11:07 AM) [facility] DICTATED and SIGNED BY: WHITLEY KHOURY MD DATE: 11/10/19 1106 [][facility] [address] [place], [place] [id number] IMAGING REPORT Signed PATIENT: GENEVIEVE GOLD ACCOUNT: [id number] : 1955 LOCATION: ER AGE: 64 SEX: M EXAM STATUS: REG ER ORD. PHYSICIAN: ELIZABETH ROMERO DO REASON: RUQ ABDOMINAL PAIN MAIKEL KNOWS WILL BE AT LEAST 1PM PROCEDURE: ABDOMEN LTD Exam performed: Limited right upper quadrant sonogram. Indication: Abdominal pain today Date of Service: 11/10/2019 . Comparison: CT abdomen and pelvis from earlier today. Technique: Real-time grayscale imaging of the right upper abdomen is performed and images are obtained. Findings: Diffuse hepatic steatosis without any focal lesions. The liver measures 16.77 cm in length. There is no intra or extrahepatic biliary ductal dilatation. The gallbladder contains calculi. The common bile duct measures 4.1 mm. The right kidney appears unremarkable and measures 12.5 x 6.0 x 5.2 cm in size. There is no hydronephrosis or perinephric fluid collection. Suboptimal evaluation of the pancreas due to overlying bowel gas. Visualized IVC appears normal. Impression: 1. Diffuse hepatic steatosis. 2. Cholelithiasis Electronically signed by: Whitley Khoury MD (11/10/2019 1:47 PM) [facility] DICTATED and SIGNED BY: WHITLEY KHOURY MD DATE: 11/10/19 1347 Course & Med Decision Making Course & Med Decision Making Pertinent Labs and Imaging studies reviewed. (See chart for details) Patient is a 64-year-old man who was found to have biliary colic , patient has history of hepatitis C, his liver function tests elevated. His alkaline phosphatase today is normal. Patient does not have cholecystitis or obstructive cholelithiasis. Patient's blood pressure improved. He was pain free. He denied any chest pain, no shortness of air. He was given information for general surgeon for outpatient follow up. He was given prescriptions of his blood pressure medication. Dragon Disclaimer Dragon Disclaimer This electronic medical record was generated, in whole or in part, using a voice recognition dictation system. Departure Departure Impression: Primary Impression: Biliary colic Additional Impression: Hypertension Disposition: 01 HOME, SELF-CARE Condition: IMPROVED Referrals: NINO CARABALLO MD follow up with this surgeon for outpatient evaluation of your gallbladder problem. Patient Instructions: Biliary Colic, Hypertension Additional Instructions: Thank you for visiting our Emergency Department. We appreciate you trusting us with your care. If any additional problems come up don't hesitate to return to visit us. Please follow up with your primary care provider so they can plan additional care if needed and know about the problem that you had. If symptoms worsen come back to the Emergency Department. Any concerning symptoms that start such as chest pain, shortness of air, weakness or numbness on one side of the body, running high fevers or any other concerning symptoms return to the ER. Scripts Lisinopril (LISINOPRIL) 20 Mg Tablet 1 TAB PO DAILY for 30 Days, #30 TAB 1 Refill Prov: ELIZABETH ROMERO DO 11/10/19 Amlodipine Besylate (AMLODIPINE BESYLATE) 5 Mg Tablet 5 MG PO DAILY for 30 Days, #30 TAB 1 Refill Prov: ELIZABETH ROMERO DO 11/10/19 Problem Qualifiers ELIZABETH ROMERO DO Nov 10, 2019 08:46
[2019-11-10] MEDS: cloNIDine HCL 0.1 MG TABLET PO ONE (08:52)
[2019-11-10] MEDS: MORPHINE SULFATE 4 MG/ML VIAL. IV ONE (09:04)
[2019-11-10] MEDS: ONDANSETRON PF 4 MG/2 ML VIAL. IVP ONE (09:04)
[2019-11-10 09:05] LABS: BASO % 0 % (0-3); EOS # 0.2 x10^3/uL (0.0-0.7); EOS % 2 % (0-3); HEMATOCRIT 52.5 % (39.0-53.0); HEMOGLOBIN 17.9 g/dL (13.0-17.5); LYMPH # 1.5 x10^3/uL (1.0-4.8); LYMPH % 17 % (24-48); MEAN CORPUSCULAR HEMOGLOBIN 33 pg (25-35); MEAN CORPUSCULAR HGB CONC 34 g/dL (31-37); MEAN CORPUSCULAR VOLUME 98 fL (79-100); MONO % 11 % (0-9); NEUT % 69 % (31-73); PLATELET COUNT 191 x10^3/uL (140-400); RED BLOOD COUNT 5.38 x10^6/uL (4.30-5.70); RED CELL DISTRIBUTION WIDTH 13.8 % (11.5-14.5); WHITE BLOOD COUNT 8.6 x10^3/uL (4.0-11.0)
[2019-11-10] MEDS: IPRATRPIUM/ALBUTEROL 0.5/2.5MG 3 ML NEBU. NEB ONE (09:10)
[2019-11-10 09:13] LABS: CALCIUM 9.4 mg/dL (8.5-10.1); POTASSIUM 3.8 mmol/L (3.5-5.1)
--- NOTE | 2019-11-10 09:16 | RAD ---
Exam performed: One view chest. Indication: shortness of air Date of Service: 11/10/2019 9:01 AM Comparison: None available. Single AP upright portable view chest findings: Cardiomediastinal silhouette is within limits of normal. No acute infiltrates, effusion or pneumothorax is detected. The bony structures are normal. Impression: No acute cardiopulmonary process is detected. Electronically signed by: Whitley Khoury MD (11/10/2019 9:13 AM) [facility]
[2019-11-10 09:19] LABS: ALBUMIN 3.3 g/dL (3.4-5.0); TOTAL BILIRUBIN 0.9 mg/dL (0.2-1.0); TOTAL PROTEIN 6.7 g/dL (6.4-8.2)
[2019-11-10] MEDS: IOHEXOL 300 MG/ML 100ML VIAL. IV ONE (10:27)
[2019-11-10] MEDS ORDERED: CONTRAST GIVEN. MC PRN (10:30)
--- NOTE | 2019-11-10 11:10 | RAD ---
Exam performed: CT abdomen and pelvis with contrast. HISTORY: Abdominal pain and nausea Date of service: 11/10/2019. COMPARISON: CT abdomen and pelvis from 10/01/2018. TECHNIQUE: Contiguous helical acquisitions are obtained through the abdomen and pelvis during intravenous administration of 75 cc of Omnipaque 300. Sagittal and coronal reformatted images are obtained and reviewed. FINDINGS: The demonstrate bibasilar atelectasis. Stable 4 mm nodule in the right lung base The visualized heart appears to be normal. Mild hepatic steatosis with tiny low attenuating nodules in the right hepatic lobe, small to be characterized, however likely cysts remain stable. Spleen and pancreas appear normal. Cholelithiasis. Both adrenal glands and bilateral kidneys are normal in size with symmetric excretion of contrast via both kidneys. Renal cysts. Diffuse atheromatous aortic calcification without aneurysm. The small bowel loops are nondilated and unremarkable. Small ventral abdominal wall hernia containing omental fat. Interval decrease in the size of previously seen mesenteric lymph nodes No inflammatory changes seen in the right lower quadrant. Prostatomegaly. Seminal vesicles and rectum appear normal. The urinary bladder is decompressed. Fat-containing ventral hernia. Bones are essentially normal. IMPRESSION: No acute intra-abdominal or pelvic process detected. Bilateral renal cysts. Probable hepatic cysts. Cholelithiasis. Prostatomegaly. PQRS Compliance Statement: One or more of the following individualized dose reduction techniques were utilized for this examination: 1. Automated exposure control 2. Adjustment of the mA and/or kV according to patient size 3. Use of iterative reconstruction technique Electronically signed by: Whitley Khoury MD (11/10/2019 11:07 AM) [facility]
[2019-11-10 11:30] LABS: BILIRUBIN,URINE NEGATIVE (NEG); CLARITY,URINE CLEAR; COLOR,URINE YELLOW; NITRITE,URINE NEGATIVE (NEG); PH,URINE 5.5; PROTEIN,URINE NEGATIVE (NEG-TRACE); UROBILINOGEN,URINE 0.2 mg/dL (0.2 mg/dL)
[2019-11-10 11:43] LABS: SQUAMOUS EPITHELIAL CELL,UR OCC /LPF
[2019-11-10 11:46] LABS: BACTERIA,URINE FEW /HPF (0-FEW); RBC,URINE OCC /HPF (0-2)
--- NOTE | 2019-11-10 13:50 | RAD ---
Exam performed: Limited right upper quadrant sonogram. Indication: Abdominal pain today Date of Service: 11/10/2019 . Comparison: CT abdomen and pelvis from earlier today. Technique: Real-time grayscale imaging of the right upper abdomen is performed and images are obtained. Findings: Diffuse hepatic steatosis without any focal lesions. The liver measures 16.77 cm in length. There is no intra or extrahepatic biliary ductal dilatation. The gallbladder contains calculi. The common bile duct measures 4.1 mm. The right kidney appears unremarkable and measures 12.5 x 6.0 x 5.2 cm in size. There is no hydronephrosis or perinephric fluid collection. Suboptimal evaluation of the pancreas due to overlying bowel gas. Visualized IVC appears normal. Impression: 1. Diffuse hepatic steatosis. 2. Cholelithiasis Electronically signed by: Whitley Khoury MD (11/10/2019 1:47 PM) [facility]
[2019-11-10] MEDS ORDERED: AMLO5TAB10 PO (14:36)
[2019-11-10] MEDS ORDERED: LISI-334 PO (14:36)
[2019-11-10 15:15] VITALS: BP 172/102
--- NOTE | 2019-11-11 07:09 | EKG ---
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 (Measurements might be questionable) No previous ECG available for comparison
== END 2019-11-10 15:00 | disposition home or self-care (01) ==
LOC: ER 08:09
DX: K80.70 Calculus of gallbladder and bile duct without cholecystitis without obstruction (principal); I10 Essential (primary) hypertension; J44.9 Chronic obstructive pulmonary disease, unspecified; F17.200 Nicotine dependence, unspecified, uncomplicated; Z88.0 Allergy status to penicillin
CPT/HCPCS: 36415; 71045; 74177; 76705; 80053; 81001; 83690; 83735; 83880; 84484; 85025; 93005; 94640; 96374; 96375; J2270; J2405; J7620; Q9967; 99285-25

== ENCOUNTER 2020-04-18 23:01 | Inpatient (IN) | payer MEDICARE, MEDICAID ==
[~2020-04-18] VITALS: Ht 185.4 cm; Wt 114.6 kg
[~2020-04-18 23:01] MED LIST changes: +AMLO5TAB10 PO; +LISI-334 PO
--- NOTE | 2020-04-18 23:07 | PHYS DOC ---
Past Medical History Past Medical History: COPD, Hypertension, Hepatitis Additional Past Medical Histor: HEP C, RHEUMATIC FEVER, pancreatitis Past Surgical History: Other Additional Past Surgical Histo: HERNIA Smoking Status: Current Every Day Smoker Alcohol Use: Occasionally Drug Use: Marijuana General Adult EDM: Chief Complaint: CHEST PAIN HPI: HPI: Patient is a 64 year old m pw chest pain onset two days ago constant worse with lyign down and somewhat worse with walking band like across front of chest tight nothing makes it better or worse pos tobacco no etoh no drugs ran out of blood pressure meds a couple of weeks ago no hx of diabetes. Patient has been coughing somewhat the last several days but no fever that he knows of Patient is a family history of coronary artery disease Review of Systems: Review of Systems: Constitutional: Denies fever or chills. [] Eyes: Denies change in visual acuity. [] HENT: Denies nasal congestion or sore throat. [] Respiratory: Denies cough or shortness of breath. [] Cardiovascular: Denies chest pain or edema. [] GI: Denies abdominal pain, nausea, vomiting, bloody stools or diarrhea. [] : Denies dysuria. [] Musculoskeletal: Denies back pain or joint pain. [] Integument: Denies rash. [] Neurologic: Denies headache, focal weakness or sensory changes. [] Endocrine: Denies polyuria or polydipsia. [] Lymphatic: Denies swollen glands. [] Psychiatric: Denies depression or anxiety. [] Heart Score: HEART Score for Chest Pain: HEART Score for Chest Pain Response (Comments) Value History Moderately Suspicious 1 Age >45 - < 65 1 Risk Factors >3 Risk Factors or Hx CAD 2 Troponin < Normal Limit 0 Total 4 Risk Factors: Risk Factors: DM, Current or recent (<one month) smoker, HTN, HLP, family history of CAD, obesity. Risk Scores: Score 0 - 3: 2.5% MACE over next 6 weeks - Discharge Home Score 4 - 6: 20.3% MACE over next 6 weeks - Admit for Clinical Observation Score 7 - 10: 72.7% MACE over next 6 weeks - Early Invasive Strategies Allergies: Allergies: Allergies Coded Allergies Type Severity Reaction Last Updated Verified Penicillins Allergy Intermediate hives, sweaty 06/28/16 Yes Physical Exam: PE: Constitutional: Well developed, well nourished, no acute distress, non-toxic appearance. [] HENT: Normocephalic, atraumatic, bilateral external ears normal, oropharynx moist, no oral exudates, nose normal. [] Eyes: PERRLA, EOMI, conjunctiva normal, no discharge. [] Neck: Normal range of motion, no tenderness, supple, no stridor. [] Cardiovascular:Heart rate regular rhythm, 2/6 murmur noted] Lungs & Thorax: Bilateral breath sounds clear to auscultation [] Abdomen: Bowel sounds normal, soft, no tenderness, no masses, no pulsatile masses. [] Skin: Warm, dry, no erythema, no rash. [] Back: No tenderness, no CVA tenderness. [] Extremities: No tenderness, no cyanosis, no clubbing, ROM intact, no edema. [] Neurologic: Alert and oriented X 3, normal motor function, normal sensory function, no focal deficits noted. [] Psychologic: Affect normal, judgement normal, mood normal. [] Current Patient Data: Vital Signs: Afebrile not tachycardic not hypoxic blood pressures improved with Nitropaste. EKG: EKG: [] EKG shows sinus rhythm rate of 80 No STEMI no ischemic changes noted. Radiology/Procedures: Radiology/Procedures: [] Impression: FINDINGS: Adequate pulmonary arterial opacification is suboptimal. PULMONARY ARTERIES: No pulmonary emboli are identified. CARDIOVASCULAR: Dense multivessel calcifications. Normal heart size. borderline ectasia of the ascending thoracic aorta to 4 cm. MEDIASTINUM & FLOR: Densely calcified mediastinal and left hilar lymph nodes. LUNGS: No pulmonary infiltrate, nodule, or other focal abnormality. PLEURAL SPACE: No pleural effusions or pneumothorax. OSSEOUS & SOFT TISSUE: Unremarkable ABDOMEN: The visualized portions of the upper abdomen are unremarkable. IMPRESSION: No pulmonary emboli or evidence of other acute cardiopulmonary process. Evidence of previous granulomatous disease and coronary artery disease are noted. Electronically signed by: Laura Trent MD (04/19/2020 1:43 AM) [facility] [place] Course & Med Decision Making: Course & Med Decision Making Pertinent Labs and Imaging studies reviewed. (See chart for details) [] 64-year-old male with known hypertension has been off medications for 3 weeks presenting with chest pain initial blood pressure 180/130. Patient was coughing so we did a coronavirus test but overall low suspicion. Use PPE throughout the ER course due to the severity of the elevated blood pressure to proceed with a CT angiogram which was negative for dissection or pulmonary embolism but did show evidence of coronary artery disease due to this and the patient's intermittent compliance and felt that we should admit for observation formal rule out and cardiology consultation. Admit to the service of Dr. Faustin heart score is a 4 warrants observation Maria Del Carmen Disclaimer: Maria Del Carmen Disclaimer: This electronic medical record was generated, in whole or in part, using a voice recognition dictation system. Departure Departure Impression: Primary Impression: Chest pain Disposition: 09 ADMITTED INPATIENT Admitting Physician: NANCY Condition: STABLE Referrals: UNKNOWN PCP NAME (PCP) Justicifation of Admission Dx: Justifications for Admission: Justification of Admission Dx: Yes Angina: New-Onset DONNY ALEX MD Apr 18, 2020 23:07
[2020-04-18] MEDS ORDERED: NITROGLYCERIN OINT 1 GM PACKET. TP ONE (23:30)
[2020-04-18] MEDS ORDERED: fentaNYL PF VIAL 100 MCG/2 ML VIAL IVP ONE (23:30)
[2020-04-18 23:43] LABS: BASO % 0 % (0-3); EOS # 0.2 x10^3/uL (0.0-0.7); EOS % 2 % (0-3); HEMATOCRIT 52.1 % (39.0-53.0); HEMOGLOBIN 18.1 g/dL (13.0-17.5); LYMPH # 2.6 x10^3/uL (1.0-4.8); LYMPH % 31 % (24-48); MEAN CORPUSCULAR HEMOGLOBIN 34 pg (25-35); MEAN CORPUSCULAR HGB CONC 35 g/dL (31-37); MEAN CORPUSCULAR VOLUME 99 fL (79-100); MONO # 0.7 x10^3/uL (0.0-1.1); MONO % 8 % (0-9); NEUT # 5.1 x10^3/uL (1.8-7.7); NEUT % 59 % (31-73); PLATELET COUNT 170 x10^3/uL (140-400); RED BLOOD COUNT 5.29 x10^6/uL (4.30-5.70); RED CELL DISTRIBUTION WIDTH 13.4 % (11.5-14.5); WHITE BLOOD COUNT 8.6 x10^3/uL (4.0-11.0)
[2020-04-18 23:54] LABS: CALCIUM 9.4 mg/dL (8.5-10.1); CREATININE 1.3 mg/dL (0.7-1.3); GFR 55.4; POTASSIUM 3.7 mmol/L (3.5-5.1)
[2020-04-19] LABS: ALBUMIN 3.4 g/dL (3.4-5.0); ALBUMIN/GLOBULIN RATIO 0.9 (1.0-1.7); TOTAL BILIRUBIN 0.7 mg/dL (0.2-1.0); TOTAL PROTEIN 7.1 g/dL (6.4-8.2)
--- NOTE | 2020-04-19 00:16 | RAD ---
EXAM: PORTABLE CHEST 1V INDICATION: Reason: cp / Spl. Instructions: / History: . TECHNIQUE: Portable upright AP view COMPARISON: 11/10/2019 chest x-ray FINDINGS: The heart size is normal. The great vessels appear unremarkable. There is no hilar or mediastinal mass. Lungs show minimal bibasilar atelectatic changes. There is no pleural effusion or pneumothorax. There are no significant osseous abnormalities. IMPRESSION: Minimal bibasilar atelectatic changes. Otherwise no acute process. Electronically signed by: Larua Trent MD (04/19/2020 12:13 AM) [facility] [place]
[2020-04-19 00:20] LABS: PROTHROMBIN TIME PATIENT 12.4 SEC (11.7-14.0)
[2020-04-19] MEDS ORDERED: CONTRAST GIVEN. MC PRN (00:30)
[2020-04-19] MEDS ORDERED: IOHEXOL 350 MG/ML 100 ML VIAL. IV ONE (01:00)
--- NOTE | 2020-04-19 01:46 | RAD ---
EXAM: CT Pulmonary Angiogram INDICATION: Reason: bp 180/130 chest pain, r/o dissection. OMNI 350, 70 ML IV / Spl. Instructions: LINE LEAKED WHILE INJECTING DIDNT GET CONTRAST FULL AMOUNT / History: TECHNIQUE: Multi-detector row images were acquired from the thoracic inlet through the upper abdomen with the use of IV contrast. Sagittal and coronal images were acquired from the transaxial data. MIP images of the pulmonary arteries were obtained. All CT scans performed at this facility utilize dose optimization techniques as appropriate to the exam, including the following: Automated exposure control and adjustment of the mA and/or KV according to patient size (this includes techniques or standardized protocols for targeted exams where dose is indication/reason for exam). IV CONTRAST: Administered COMPARISON: Abdomen and pelvis CT with IV contrast 11/10/2019. FINDINGS: Adequate pulmonary arterial opacification is suboptimal. PULMONARY ARTERIES: No pulmonary emboli are identified. CARDIOVASCULAR: Dense multivessel calcifications. Normal heart size. borderline ectasia of the ascending thoracic aorta to 4 cm. MEDIASTINUM & FLOR: Densely calcified mediastinal and left hilar lymph nodes. LUNGS: No pulmonary infiltrate, nodule, or other focal abnormality. PLEURAL SPACE: No pleural effusions or pneumothorax. OSSEOUS & SOFT TISSUE: Unremarkable ABDOMEN: The visualized portions of the upper abdomen are unremarkable. IMPRESSION: No pulmonary emboli or evidence of other acute cardiopulmonary process. Evidence of previous granulomatous disease and coronary artery disease are noted. Electronically signed by: Laura Trent MD (04/19/2020 1:43 AM) [facility]
[2020-04-19] MEDS ORDERED: HYDROcodone/APAP 5/325MG 1 TAB TABLET PO ONE (03:00)
--- NOTE | 2020-04-19 10:24 | PDOC1 ---
History and Physical Date of Admission Date of Admission DATE: 04/19/20 TIME: 10:23 Identification/Chief Complaint Chief Complaint seen in er with chest painonset two days ago constant worse with supine position and somewhat worse with activity // across front of chest tight pos tobacco use no etoh no drugs ran out of blood pressure meds a couple of weeks ago no hx of diabetes. Patient has been coughing somewhat the last several days but no fever positive family history of coronary artery disease Past Medical History Past Medical History Past Medical History Past Medical History: COPD, Hypertension, Hepatitis Additional Past Medical Histor: HEP C, RHEUMATIC FEVER, pancreatitis Past Surgical History: Other Additional Past Surgical Histo: HERNIA Smoking Status: Current Every Day Smoker Alcohol Use: Occasionally Drug Use: Marijuana fhx obesity Cardiovascular: HTN, Hyperlipidemia Pulmonary: COPD CENTRAL NERVOUS SYSTEM: Other GI: No pertinent hx Heme/Onc: No pertinent hx Hepatobiliary: Hep A/B/C Psych: Anxiety, Bipolar Musculoskeletal: Osteoarthritis Rheumatologic: No pertinent hx Infectious disease: No pertinent hx Renal/: No pertinent hx Endocrine: No pertinent hx Past Surgical History Past Surgical History: Hernia Repair Family History Family History: Hypertension Social History Smoke: <1 pack per day ALCOHOL: occassional Drugs: Marijuana Current Medications Current Medications Current Medications Nitroglycerin (Nitro-Bid Oint) 1 inch 1X ONCE TP Last administered on 04/18/20at 23:30; Start 04/18/20 at 23:30; Stop 04/18/20 at 23:31; Status DC Fentanyl Citrate (Fentanyl 2ml Vial) 50 mcg 1X ONCE IVP Last administered on 04/18/20at 23:28; Start 04/18/20 at 23:30; Stop 04/18/20 at 23:31; Status DC Iohexol (Omnipaque 350 Mg/ml) 70 ml 1X ONCE IV Last administered on 04/19/20at 01:04; Start 04/19/20 at 01:00; Stop 04/19/20 at 01:01; Status DC Info (CONTRAST GIVEN -- Rx MONITORING) 1 each PRN DAILY PRN MC SEE COMMENTS; Start 04/19/20 at 00:30; Stop 04/21/20 at 00:29 Acetaminophen/ Hydrocodone Bitart (Lortab 5/325) 2 tab 1X ONCE PO Last administered on 04/19/20at 02:52; Start 04/19/20 at 03:00; Stop 04/19/20 at 03:01; Status DC Active Scripts Active Lisinopril 20 Mg Tablet 1 Tab PO DAILY 30 Days Amlodipine Besylate 5 Mg Tablet 5 Mg PO DAILY 30 Days Hydrocodone-Apap 5-325 (Hydrocodone Bit/Acetaminophen) 1 Each Tablet 1 Tab PO PRN Q6HRS PRN Bactrim Ds Tablet (Sulfamethoxazole/Trimethoprim) 1 Each Tablet 1 Tab PO BID [place] 5-325 Tablet (Acetaminophen/Hydrocodone Bitart) 1 Each Tablet 1-2 Tab PO Q4-6HRS Allergies Allergies: Coded Allergies: Penicillins (Verified Allergy, Intermediate, hives, sweaty, 06/28/16) ROS Review of System Review of Systems: Review of Systems: Constitutional: Denies fever or chills. [] Eyes: Denies change in visual acuity. [] HENT: Denies nasal congestion or sore throat. [] Respiratory: Denies cough or shortness of breath. [] Cardiovascular: Denies chest pain or edema. [] GI: Denies abdominal pain, nausea, vomiting, bloody stools or diarrhea. [] : Denies dysuria. [] Musculoskeletal: Denies back pain or joint pain. [] Integument: Denies rash. [] Neurologic: Denies headache, focal weakness or sensory changes. [] Endocrine: Denies polyuria or polydipsia. [] Lymphatic: Denies swollen glands. [] Psychiatric: Denies depression or anxiety. [] 14 pt ros otherwise neg Musculoskeletal: No Gait Disturbance, No Joint Pain, No Joint Stiffness, No Joint Swelling, No Muscle Pain, No Muscular Weakness, No Pain In:, No Swelling In:, No Other Neurological: No Behavorial Changes, No Bowel/Bladder ControlChng, No Confusion, No Dizziness, No Gait Disturbance, No Headaches, No Impaired Coord/balance, No Memory Loss, No Numbness/Tingling, No Seizures, No Speech Problems, No Tremors, No Visual Changes, No Weakness, No Other Skin: No Dry Skin, No Eczema, No Hair Changes, No Lumps, No Mole Changes, No Mottling, No Nail Changes, No Pruritus, No Rash, No Skin Lesion Changes, No Other, No Acne Physical Exam Physical Exam Constitutional: Well developed, well nourished, no acute distress, non-toxic appearance. [] HENT: Normocephalic, atraumatic, bilateral external ears normal, oropharynx moist, no oral exudates, nose normal. [] Eyes: PERRLA, EOMI, conjunctiva normal, no discharge. [] Neck: Normal range of motion, no tenderness, supple, no stridor. [] Cardiovascular:Heart rate regular rhythm, 2/6 murmur noted] Lungs & Thorax: Bilateral breath sounds clear to auscultation [] Abdomen: Bowel sounds normal, soft, no tenderness, no masses, no pulsatile masses. [] Skin: Warm, dry, no erythema, no rash. [] Back: No tenderness, no CVA tenderness. [] Extremities: No tenderness, no cyanosis, no clubbing, ROM intact, no edema. [] Neurologic: Alert and oriented X 3, normal motor function, normal sensory function, no focal deficits noted. [] Psychologic: Affect normal, judgment normal, mood normal. [] General: Alert, Oriented X3, Cooperative, No acute distress HEENT: EOMI, Mucous membr. moist/pink Lungs: Clear to auscultation, Normal air movement Heart: RRR, no thrills, no gallops Breasts: Pt decl breast exam Abdomen: Normal bowel sounds, Soft Rectal Exam: not examined PELVIC: Examination not indicated Extremities: No cyanosis Skin: No rashes, No significant lesion Neuro: Normal speech, Cranial nerves 3-12 NL Psych/Mental Status: Mental status NL, Mood NL Vitals Vitals Vital Signs Date Time Temp Pulse Resp B/P (MAP) Pulse Ox O2 Delivery O2 Flow Rate FiO2 04/19/20 09:51 84 200/99 (132) 95 Room Air 04/19/20 09:40 98.1 98.1 04/19/20 06:00 19 Labs Labs Laboratory Tests Test 04/18/20 23:33 04/19/20 04:17 04/19/20 07:22 White Blood Count 8.6 x10^3/uL (4.0-11.0) Red Blood Count 5.29 x10^6/uL (4.30-5.70) Hemoglobin 18.1 g/dL (13.0-17.5) Hematocrit 52.1 % (39.0-53.0) Mean Corpuscular Volume 99 fL (79-100) Mean Corpuscular Hemoglobin 34 pg (25-35) Mean Corpuscular Hemoglobin Concent 35 g/dL (31-37) Red Cell Distribution Width 13.4 % (11.5-14.5) Platelet Count 170 x10^3/uL (140-400) Neutrophils (%) (Auto) 59 % (31-73) Lymphocytes (%) (Auto) 31 % (24-48) Monocytes (%) (Auto) 8 % (0-9) Eosinophils (%) (Auto) 2 % (0-3) Basophils (%) (Auto) 0 % (0-3) Neutrophils # (Auto) 5.1 x10^3/uL (1.8-7.7) Lymphocytes # (Auto) 2.6 x10^3/uL (1.0-4.8) Monocytes # (Auto) 0.7 x10^3/uL (0.0-1.1) Eosinophils # (Auto) 0.2 x10^3/uL (0.0-0.7) Basophils # (Auto) 0.0 x10^3/uL (0.0-0.2) Prothrombin Time 12.4 SEC (11.7-14.0) Prothromb Time International Ratio 1.0 (0.8-1.1) Sodium Level 140 mmol/L (136-145) Potassium Level 3.7 mmol/L (3.5-5.1) Chloride Level 104 mmol/L (98-107) Carbon Dioxide Level 31 mmol/L (21-32) Anion Gap 5 (6-14) Blood Urea Nitrogen 17 mg/dL (8-26) Creatinine 1.3 mg/dL (0.7-1.3) Estimated GFR (Cockcroft-Gault) 55.4 BUN/Creatinine Ratio 13 (6-20) Glucose Level 131 mg/dL (70-99) Calcium Level 9.4 mg/dL (8.5-10.1) Total Bilirubin 0.7 mg/dL (0.2-1.0) Aspartate Amino Transf (AST/SGOT) 77 U/L (15-37) Alanine Aminotransferase (ALT/SGPT) 156 U/L (16-63) Alkaline Phosphatase 82 U/L (46-116) Troponin I Quantitative 0.031 ng/mL (0.000-0.055) 0.027 ng/mL (0.000-0.055) 0.024 ng/mL (0.000-0.055) AF-Qbo-Q-Type Natriuretic Peptide 4166 pg/mL (0-124) Total Protein 7.1 g/dL (6.4-8.2) Albumin 3.4 g/dL (3.4-5.0) Albumin/Globulin Ratio 0.9 (1.0-1.7) Laboratory Tests Test 04/18/20 23:33 04/19/20 04:17 04/19/20 07:22 White Blood Count 8.6 x10^3/uL (4.0-11.0) Red Blood Count 5.29 x10^6/uL (4.30-5.70) Hemoglobin 18.1 g/dL (13.0-17.5) Hematocrit 52.1 % (39.0-53.0) Mean Corpuscular Volume 99 fL (79-100) Mean Corpuscular Hemoglobin 34 pg (25-35) Mean Corpuscular Hemoglobin Concent 35 g/dL (31-37) Red Cell Distribution Width 13.4 % (11.5-14.5) Platelet Count 170 x10^3/uL (140-400) Neutrophils (%) (Auto) 59 % (31-73) Lymphocytes (%) (Auto) 31 % (24-48) Monocytes (%) (Auto) 8 % (0-9) Eosinophils (%) (Auto) 2 % (0-3) Basophils (%) (Auto) 0 % (0-3) Neutrophils # (Auto) 5.1 x10^3/uL (1.8-7.7) Lymphocytes # (Auto) 2.6 x10^3/uL (1.0-4.8) Monocytes # (Auto) 0.7 x10^3/uL (0.0-1.1) Eosinophils # (Auto) 0.2 x10^3/uL (0.0-0.7) Basophils # (Auto) 0.0 x10^3/uL (0.0-0.2) Prothrombin Time 12.4 SEC (11.7-14.0) Prothromb Time International Ratio 1.0 (0.8-1.1) Sodium Level 140 mmol/L (136-145) Potassium Level 3.7 mmol/L (3.5-5.1) Chloride Level 104 mmol/L (98-107) Carbon Dioxide Level 31 mmol/L (21-32) Anion Gap 5 (6-14) Blood Urea Nitrogen 17 mg/dL (8-26) Creatinine 1.3 mg/dL (0.7-1.3) Estimated GFR (Cockcroft-Gault) 55.4 BUN/Creatinine Ratio 13 (6-20) Glucose Level 131 mg/dL (70-99) Calcium Level 9.4 mg/dL (8.5-10.1) Total Bilirubin 0.7 mg/dL (0.2-1.0) Aspartate Amino Transf (AST/SGOT) 77 U/L (15-37) Alanine Aminotransferase (ALT/SGPT) 156 U/L (16-63) Alkaline Phosphatase 82 U/L (46-116) Troponin I Quantitative 0.031 ng/mL (0.000-0.055) 0.027 ng/mL (0.000-0.055) 0.024 ng/mL (0.000-0.055) GZ-Kbo-Q-Type Natriuretic Peptide 4166 pg/mL (0-124) Total Protein 7.1 g/dL (6.4-8.2) Albumin 3.4 g/dL (3.4-5.0) Albumin/Globulin Ratio 0.9 (1.0-1.7) Images Images Tricuspid Valve TR P. Velocity 205cm/s RAP ESTIMATE 3mmHg TR Peak Gr. 20mmHg RVSP 23mmHg Pulmonary Vein S1 Velocity 35.9cm/s D2 Velocity 34.2cm/s PVa duration 111msec LEFT VENTRICLE The Left Ventricle is borderline dilated. There is mild concentric left ventricular hypertrophy. The left ventricular systolic function is normal and the ejection fraction is within normal range. The Ejection Fraction is 50-55%. There is normal LV segmental wall motion. Transmitral Doppler flow pattern is Grade II-pseudonormal filling dynamics. RIGHT VENTRICLE The right ventricle is normal size. There is normal right ventricular wall thickness. The right ventricular systolic function is normal. ATRIA The left atrium size is normal. The right atrium size is normal. The interatrial septum is intact with no evidence for an atrial septal defect or patent foramen ovale as noted on 2-D or Doppler imaging. AORTIC VALVE The aortic valve is normal in structure and function. Doppler and Color Flow revealed no significant aortic regurgitation. There is no significant aortic valvular stenosis. Calculated aortic valve area is 2.49 cm2 with maximum pressure gradient of 13 mmHg and mean pressure gradient of 8 mmHg. MITRAL VALVE The mitral valve is normal in structure and function. There is no evidence of mitral valve prolapse. There is no mitral valve stenosis. Doppler and Color-flow revealed trace mitral regurgitation. TRICUSPID VALVE The tricuspid valve is normal in structure and function. Doppler and Color Flow revealed trace tricuspid regurgitation. There is no tricuspid valve stenosis. PULMONIC VALVE The pulmonic valve is not well visualized. Doppler and Color Flow revealed no pulmonic valvular regurgitation. GREAT VESSELS The aortic root is normal in size. Normal pulmonary venous flow (Doppler). The IVC is normal in size and collapses >50% with inspiration. PERICARDIAL EFFUSION There is no evidence of significant pericardial effusion. Critical Notification Critical Value: No <Conclusion> The Left Ventricle is borderline dilated. The left ventricular systolic function is normal and the ejection fraction is within normal range. The Ejection Fraction is 50-55%. There is mild concentric left ventricular hypertrophy. There is no significant aortic valvular stenosis. Doppler and Color Flow revealed no significant aortic regurgitation. Doppler and Color-flow revealed trace mitral regurgitation. Doppler and Color Flow revealed trace tricuspid regurgitation. Signed by : Tomi Estes MD Electronically Approved : 10/03/2018 15:37:17 VTE Prophylaxis Ordered VTE Prophylaxis Devices: No VTE Pharmacological Prophylaxi: Yes Assessment/Plan Assessment/Plan impression 1. Chest pain. Pain // improved. admit// schedule echocardiogram. trace mitral regurgitation. 2018 ECHO 2. Heart failure. BNP of 4166. Mild iv diuresis . 3. COPD. /tobacco abuse disorder 4. Renal insufficiency. Creatinine//1.3. 5. Hypertensive urgency. Initial pressures of 180/130. 6. morbid obesity plan admit serial troponin i cardiology consult smoking cessation education provided cvc bed dvt prophylaxis D/W [employer] Justicifation of Admission Dx: Justifications for Admission: Justification of Admission Dx: Yes Angina: New-Onset CHRISTOPHER NUÑEZ MD Apr 19, 2020 10:24
[2020-04-19] MEDS ORDERED: HYDROcodone/APAP 5/325MG 1 TAB TABLET PO PRN (10:30)
[2020-04-19] MEDS ORDERED: ACETAMINOPHEN 325 MG TABLET. PO PRN ×2 (10:30→19:15)
[2020-04-19] MEDS: LISINOPRIL 20 MG TABLET PO SCH (11:00)
[2020-04-19] MEDS ORDERED: ALBUTEROL SULFATE 2.5 MG/3 ML NEBU. NEB PRN (11:00)
[2020-04-19] MEDS: HYDROcodone/APAP 5/325MG 1 TAB TABLET PO PRN (11:16)
[2020-04-19] MEDS: amLODIPine BESYLATE 5 MG TABLET PO SCH (11:16)
[2020-04-19] MEDS: hydrALAZINE 20 MG/ML VIAL. IVP PRN (11:17)
--- NOTE | 2020-04-19 13:24 | PDOC2 ---
CONSULT Date of Consult Date of Consult DATE: 04/19/20 TIME: 13:17 Reason for Consult Reason for Consult: Chest pain Referring Physician Referring Physician: Dr. Lynch Identification/Chief Complaint Chief Complaint Chest pain Source Source: Chart review, Patient History of Present Illness Reason for Visit: The patient is a 64-year-old male with a history of hypertension, hepatitis, COPD who presents with a 1 to 2-day history of episodes of chest discomfort. The pain is not clearly related to exertion. It is somewhat positional. Initial work-up included a EKG that showed a sinus rhythm with no acute ischemic changes. A CT chest scan showed no PE or other acute processes. Initial blood pressure 180/130 has significantly improved overnight. Creatinine was mildly elevated at 1.3. From a cardiac viewpoint patient BNP is significantly elevated at 4166. Troponins have been minimally elevated at 0.031, 0.027 and 0.024. The patient reports feeling significantly better today. Of note he apparently ran out of all his medications 2 to 3 weeks ago. Past Medical History Cardiovascular: HTN, Hyperlipidemia Pulmonary: COPD CENTRAL NERVOUS SYSTEM: Other GI: No pertinent hx Heme/Onc: No pertinent hx Hepatobiliary: Hep A/B/C Psych: Anxiety, Bipolar Musculoskeletal: Osteoarthritis Rheumatologic: No pertinent hx Infectious disease: No pertinent hx Renal/: No pertinent hx Endocrine: No pertinent hx Past Surgical History Past Surgical History: Hernia Repair Family History Family History: Hypertension Social History 1 pack per day ALCOHOL: none Drugs: Marijuana Lives: Alone Current Medications Current Medications Current Medications Nitroglycerin (Nitro-Bid Oint) 1 inch 1X ONCE TP Last administered on 04/18/20a t 23:30; Start 04/18/20 at 23:30; Stop 04/18/20 at 23:31; Status DC Fentanyl Citrate (Fentanyl 2ml Vial) 50 mcg 1X ONCE IVP Last administered on 04/18/20at 23:28; Start 04/18/20 at 23:30; Stop 04/18/20 at 23:31; Status DC Iohexol (Omnipaque 350 Mg/ml) 70 ml 1X ONCE IV Last administered on 04/19/20at 01:04; Start 04/19/20 at 01:00; Stop 04/19/20 at 01:01; Status DC Info (CONTRAST GIVEN -- Rx MONITORING) 1 each PRN DAILY PRN MC SEE COMMENTS; Start 04/19/20 at 00:30; Stop 04/21/20 at 00:29 Acetaminophen/ Hydrocodone Bitart (Lortab 5/325) 2 tab 1X ONCE PO Last administered on 04/19/20at 02:52; Start 04/19/20 at 03:00; Stop 04/19/20 at 03:01; Status DC Albuterol Sulfate (Ventolin Neb Soln) 2.5 mg PRN Q4HRS PRN NEB SHORTNESS OF BREATH Last administered on 04/19/20at 10:56; Start 04/19/20 at 11:00 Acetaminophen (Tylenol) 650 mg PRN Q6HRS PRN PO PAIN; Start 04/19/20 at 10:30 Hydralazine HCl (Apresoline Inj) 10 mg PRN Q4HRS PRN IVP ELEVATED BP, SEE COMMENTS Last administered on 04/19/20at 11:17; Start 04/19/20 at 10:30 Amlodipine Besylate (Norvasc) 5 mg DAILY PO Last administered on 04/19/20at 11:16; Start 04/19/20 at 11:00 Acetaminophen/ Hydrocodone Bitart (Lortab 5/325) 1 tab PRN Q6HRS PRN PO SEVERE PAIN 7-10; Start 04/19/20 at 10:30 Lisinopril (Prinivil) 20 mg DAILY PO ; Start 04/19/20 at 11:00 Acetaminophen/ Hydrocodone Bitart (Lortab 5/325) 2 tab PRN Q6HRS PRN PO SEVERE PAIN 7-10 Last administered on 04/19/20at 11:16; Start 04/19/20 at 10:45 Active Scripts Active Lisinopril 20 Mg Tablet 1 Tab PO DAILY 30 Days Amlodipine Besylate 5 Mg Tablet 5 Mg PO DAILY 30 Days Hydrocodone-Apap 5-325 (Hydrocodone Bit/Acetaminophen) 1 Each Tablet 1 Tab PO PRN Q6HRS PRN Bactrim Ds Tablet (Sulfamethoxazole/Trimethoprim) 1 Each Tablet 1 Tab PO BID [place] 5-325 Tablet (Acetaminophen/Hydrocodone Bitart) 1 Each Tablet 1-2 Tab PO Q4-6HRS Allergies Allergies: Coded Allergies: Penicillins (Verified Allergy, Intermediate, hives, sweaty, 06/28/16) ROS Respiratory: YES: SOB with excertion Cardiovascular: yes Chest Pain Physical Exam General: mild distress HEENT: Atraumatic Lungs: Other (Mildly decreased breath sounds) Heart: Regular rate Abdomen: Normal bowel sounds Vitals VITALS Vital Signs Date Time Temp Pulse Resp B/P (MAP) Pulse Ox O2 Delivery O2 Flow Rate FiO2 04/19/20 11:23 98.3 98.3 04/19/20 11:17 93 215/113 04/19/20 11:16 20 94 Room Air Labs Labs Laboratory Tests Test 04/18/20 23:33 04/19/20 04:17 04/19/20 07:22 White Blood Count 8.6 x10^3/uL (4.0-11.0) Red Blood Count 5.29 x10^6/uL (4.30-5.70) Hemoglobin 18.1 g/dL (13.0-17.5) Hematocrit 52.1 % (39.0-53.0) Mean Corpuscular Volume 99 fL (79-100) Mean Corpuscular Hemoglobin 34 pg (25-35) Mean Corpuscular Hemoglobin Concent 35 g/dL (31-37) Red Cell Distribution Width 13.4 % (11.5-14.5) Platelet Count 170 x10^3/uL (140-400) Neutrophils (%) (Auto) 59 % (31-73) Lymphocytes (%) (Auto) 31 % (24-48) Monocytes (%) (Auto) 8 % (0-9) Eosinophils (%) (Auto) 2 % (0-3) Basophils (%) (Auto) 0 % (0-3) Neutrophils # (Auto) 5.1 x10^3/uL (1.8-7.7) Lymphocytes # (Auto) 2.6 x10^3/uL (1.0-4.8) Monocytes # (Auto) 0.7 x10^3/uL (0.0-1.1) Eosinophils # (Auto) 0.2 x10^3/uL (0.0-0.7) Basophils # (Auto) 0.0 x10^3/uL (0.0-0.2) Prothrombin Time 12.4 SEC (11.7-14.0) Prothromb Time International Ratio 1.0 (0.8-1.1) Sodium Level 140 mmol/L (136-145) Potassium Level 3.7 mmol/L (3.5-5.1) Chloride Level 104 mmol/L (98-107) Carbon Dioxide Level 31 mmol/L (21-32) Anion Gap 5 (6-14) Blood Urea Nitrogen 17 mg/dL (8-26) Creatinine 1.3 mg/dL (0.7-1.3) Estimated GFR (Cockcroft-Gault) 55.4 BUN/Creatinine Ratio 13 (6-20) Glucose Level 131 mg/dL (70-99) Calcium Level 9.4 mg/dL (8.5-10.1) Total Bilirubin 0.7 mg/dL (0.2-1.0) Aspartate Amino Transf (AST/SGOT) 77 U/L (15-37) Alanine Aminotransferase (ALT/SGPT) 156 U/L (16-63) Alkaline Phosphatase 82 U/L (46-116) Troponin I Quantitative 0.031 ng/mL (0.000-0.055) 0.027 ng/mL (0.000-0.055) 0.024 ng/mL (0.000-0.055) WU-Fmr-Z-Type Natriuretic Peptide 4166 pg/mL (0-124) Total Protein 7.1 g/dL (6.4-8.2) Albumin 3.4 g/dL (3.4-5.0) Albumin/Globulin Ratio 0.9 (1.0-1.7) Laboratory Tests Test 04/18/20 23:33 04/19/20 04:17 04/19/20 07:22 White Blood Count 8.6 x10^3/uL (4.0-11.0) Red Blood Count 5.29 x10^6/uL (4.30-5.70) Hemoglobin 18.1 g/dL (13.0-17.5) Hematocrit 52.1 % (39.0-53.0) Mean Corpuscular Volume 99 fL (79-100) Mean Corpuscular Hemoglobin 34 pg (25-35) Mean Corpuscular Hemoglobin Concent 35 g/dL (31-37) Red Cell Distribution Width 13.4 % (11.5-14.5) Platelet Count 170 x10^3/uL (140-400) Neutrophils (%) (Auto) 59 % (31-73) Lymphocytes (%) (Auto) 31 % (24-48) Monocytes (%) (Auto) 8 % (0-9) Eosinophils (%) (Auto) 2 % (0-3) Basophils (%) (Auto) 0 % (0-3) Neutrophils # (Auto) 5.1 x10^3/uL (1.8-7.7) Lymphocytes # (Auto) 2.6 x10^3/uL (1.0-4.8) Monocytes # (Auto) 0.7 x10^3/uL (0.0-1.1) Eosinophils # (Auto) 0.2 x10^3/uL (0.0-0.7) Basophils # (Auto) 0.0 x10^3/uL (0.0-0.2) Prothrombin Time 12.4 SEC (11.7-14.0) Prothromb Time International Ratio 1.0 (0.8-1.1) Sodium Level 140 mmol/L (136-145) Potassium Level 3.7 mmol/L (3.5-5.1) Chloride Level 104 mmol/L (98-107) Carbon Dioxide Level 31 mmol/L (21-32) Anion Gap 5 (6-14) Blood Urea Nitrogen 17 mg/dL (8-26) Creatinine 1.3 mg/dL (0.7-1.3) Estimated GFR (Cockcroft-Gault) 55.4 BUN/Creatinine Ratio 13 (6-20) Glucose Level 131 mg/dL (70-99) Calcium Level 9.4 mg/dL (8.5-10.1) Total Bilirubin 0.7 mg/dL (0.2-1.0) Aspartate Amino Transf (AST/SGOT) 77 U/L (15-37) Alanine Aminotransferase (ALT/SGPT) 156 U/L (16-63) Alkaline Phosphatase 82 U/L (46-116) Troponin I Quantitative 0.031 ng/mL (0.000-0.055) 0.027 ng/mL (0.000-0.055) 0.024 ng/mL (0.000-0.055) OH-Tnu-V-Type Natriuretic Peptide 4166 pg/mL (0-124) Total Protein 7.1 g/dL (6.4-8.2) Albumin 3.4 g/dL (3.4-5.0) Albumin/Globulin Ratio 0.9 (1.0-1.7) Images Images CT scan of the chest showed no PE or other acute processes. Assessment/Plan Assessment/Plan 1. Chest pain. Pain has significantly improved. Additionally blood pressure is significantly improved. EKG shows no acute ischemic changes. Troponins are minimally elevated as noted above. We will continue treatment for heart failure. Will check an echocardiogram. Monitor blood pressure and EKG. 2. Heart failure. BNP of 4166. Mild diuresis while monitoring creatinine which is mildly elevated at 1.3. We will check an echocardiogram for LV function. 3. COPD. Patient continues to smoke cigarettes and this was discussed. Continue baseline medications. 4. Renal insufficiency. Creatinine of 1.3. Will monitor. 5. Hypertensive urgency. Initial pressures of 180/130. Significantly improved. We will continue to adjust medications as needed. Thank you for allowing us to participate in the care of your patient. LEROY DUENAS MD Apr 19, 2020 13:24
[2020-04-19] MEDS ORDERED: ONDANSETRON PF 4 MG/2 ML VIAL. IV PRN (19:15)
[2020-04-19] MEDS ORDERED: DOCUSATE SODIUM 100 MG CAPSULE. PO PRN (19:15)
[2020-04-19] MEDS ORDERED: SODIUM PHOSPHATES 19/7GM 133 ML ENEMA. PR PRN (19:15)
[2020-04-19] MEDS ORDERED: ZOLPIDEM 5 MG TABLET. PO PRN (19:15)
[2020-04-19] MEDS ORDERED: MAG HYDROX/ALUMINUM HYD/SIMETH 30 ML ORAL.SUSP PO PRN (19:15)
[2020-04-19] MEDS ORDERED: LORazepam 0.5 MG TABLET PO PRN (19:15)
[2020-04-19] MEDS ORDERED: 0.9 % SODIUM CHLORIDE 10 ML DISP.SYRIN. IV PRN (19:15)
[2020-04-19] MEDS ORDERED: cloNIDine HCL 0.1 MG TABLET PO PRN (19:15)
[2020-04-19] MEDS ORDERED: guaiFENesin ORAL 200 MG/10 ML LIQUID. PO PRN (19:15)
[2020-04-19] MEDS ORDERED: IPRATRPIUM/ALBUTEROL 0.5/2.5MG 3 ML NEBU. NEB SCH (20:00)
[2020-04-19] MEDS: ENOXAPARIN 40 MG/0.4 ML SYRINGE. SQ SCH (20:38)
[2020-04-19] MEDS: IPRATROPIUM/ALBUTEROL 20/100mcg/INH INHALER. INH SCH ×2 (21:00→23:17)
[2020-04-19] MEDS ORDERED: NICOTINE 14MG PATCH. TD PRN (22:45)
[2020-04-19 22:58] VITALS: BP_SYST 146
[2020-04-19 22:59] VITALS: BP 146/72
[2020-04-20] VITALS (29 sets, daily range): BP systolic 103–205; BP diastolic 55–94
[2020-04-20] MEDS: HYDROcodone/APAP 5/325MG 1 TAB TABLET PO PRN ×2 (02:03→14:34)
[2020-04-20] MEDS: hydrALAZINE 20 MG/ML VIAL. IVP PRN (02:11)
--- NOTE | 2020-04-20 04:30 | NUR ---
Assumed pt care. Pt needing Amio Gtt. Will continue to monitor.
[2020-04-20] MEDS: AMIODARONE 450 MG in IV DEXTROSE 5% 250 ML IV PRN ×2 (04:39→14:35)
[2020-04-20] MEDS ORDERED: AMIODARONE 150 MG in IV DEXTROSE 5% 100ML 100 ML IV ONE (04:45)
[2020-04-20] MEDS: IPRATROPIUM/ALBUTEROL 20/100mcg/INH INHALER. INH SCH ×4 (08:00→20:04)
[2020-04-20 08:48] LABS: ALBUMIN 3.2 g/dL (3.4-5.0); CALCIUM 9.2 mg/dL (8.5-10.1); CREATININE 1.1 mg/dL (0.7-1.3); DIRECT BILIRUBIN 0.4 mg/dL (0.0-0.2); GFR 67.2; POTASSIUM 3.7 mmol/L (3.5-5.1); TOTAL BILIRUBIN 1.2 mg/dL (0.2-1.0); TOTAL PROTEIN 6.8 g/dL (6.4-8.2)
[2020-04-20] MEDS: LISINOPRIL 20 MG TABLET PO SCH (08:51)
[2020-04-20] MEDS: amLODIPine BESYLATE 5 MG TABLET PO SCH (08:52)
--- NOTE | 2020-04-20 11:02 | PDOC ---
PROGRESS NOTES Chief Complaint Chief Complaint A/P: Chest pain. Pain // improved. admit// schedule echocardiogram. trace mitral regurgitation. HX 2019 ECHO Heart failure. BNP of 4166. Mild iv diuresis . COPD Tobacco abuse disorder Renal insufficiency - likely vasomotor nephropathy Hypertensive urgency. Initial pressures of 180/130. morbid obesity History of Present Illness History of Present Illness Mr Lr is a 64yo M w/ PMHx HTN, hep C, rheumatic fever, COPD, smoker who p/w chest pain with onset two days prior to ED visit. constant worse with supine position and somewhat worse with activity // across front of chest tight pos tobacco use no etoh no drugs ran out of blood pressure meds a couple of weeks ago no hx of diabetes. Patient has been coughing somewhat the last several days but no fever positive family history of coronary artery disease Afebrile overnight. Still with some dull left-sided chest pain, not reproducible does not radiate no associated nausea. Overnight he had a few PVCs, no V. tach, he was started on amiodarone infusion. Vitals Vitals Vital Signs Date Time Temp Pulse Resp B/P (MAP) Pulse Ox O2 Delivery O2 Flow Rate FiO2 04/20/20 08:52 81 165/83 04/20/20 03:00 21 Nasal Cannula 2.0 04/20/20 03:00 98.2 97 98.2 Physical Exam General: Alert, Oriented X3, Cooperative, No acute distress Heart: Regular rate Abdomen: Normal bowel sounds, Soft Extremities: No cyanosis Skin: No rashes, No significant lesion Labs LABS Laboratory Tests Test 04/20/20 07:12 Sodium Level 140 mmol/L (136-145) Potassium Level 3.7 mmol/L (3.5-5.1) Chloride Level 105 mmol/L (98-107) Carbon Dioxide Level 25 mmol/L (21-32) Anion Gap 10 (6-14) Blood Urea Nitrogen 18 mg/dL (8-26) Creatinine 1.1 mg/dL (0.7-1.3) Estimated GFR (Cockcroft-Gault) 67.2 Glucose Level 120 mg/dL (70-99) Calcium Level 9.2 mg/dL (8.5-10.1) Total Bilirubin 1.2 mg/dL (0.2-1.0) Direct Bilirubin 0.4 mg/dL (0.0-0.2) Aspartate Amino Transf (AST/SGOT) 55 U/L (15-37) Alanine Aminotransferase (ALT/SGPT) 117 U/L (16-63) Alkaline Phosphatase 54 U/L (46-116) Total Protein 6.8 g/dL (6.4-8.2) Albumin 3.2 g/dL (3.4-5.0) Triglycerides Level 58 mg/dL (0-150) Cholesterol Level 127 mg/dL (0-200) LDL Cholesterol, Calculated 83 mg/dL (0-100) VLDL Cholesterol, Calculated 12 mg/dL (0-40) Non-HDL Cholesterol Calculated 95 mg/dL (0-129) HDL Cholesterol 32 mg/dL (40-60) Cholesterol/HDL Ratio 4.0 Comment Review of Relevant I have reviewed the following items maria m (where applicable) has been applied. Labs Laboratory Tests Test 04/18/20 23:33 04/19/20 04:17 04/19/20 07:22 04/20/20 07:12 White Blood Count 8.6 x10^3/uL (4.0-11.0) Red Blood Count 5.29 x10^6/uL (4.30-5.70) Hemoglobin 18.1 g/dL (13.0-17.5) Hematocrit 52.1 % (39.0-53.0) Mean Corpuscular Volume 99 fL (79-100) Mean Corpuscular Hemoglobin 34 pg (25-35) Mean Corpuscular Hemoglobin Concent 35 g/dL (31-37) Red Cell Distribution Width 13.4 % (11.5-14.5) Platelet Count 170 x10^3/uL (140-400) Neutrophils (%) (Auto) 59 % (31-73) Lymphocytes (%) (Auto) 31 % (24-48) Monocytes (%) (Auto) 8 % (0-9) Eosinophils (%) (Auto) 2 % (0-3) Basophils (%) (Auto) 0 % (0-3) Neutrophils # (Auto) 5.1 x10^3/uL (1.8-7.7) Lymphocytes # (Auto) 2.6 x10^3/uL (1.0-4.8) Monocytes # (Auto) 0.7 x10^3/uL (0.0-1.1) Eosinophils # (Auto) 0.2 x10^3/uL (0.0-0.7) Basophils # (Auto) 0.0 x10^3/uL (0.0-0.2) Prothrombin Time 12.4 SEC (11.7-14.0) Prothromb Time International Ratio 1.0 (0.8-1.1) Sodium Level 140 mmol/L (136-145) 140 mmol/L (136-145) Potassium Level 3.7 mmol/L (3.5-5.1) 3.7 mmol/L (3.5-5.1) Chloride Level 104 mmol/L (98-107) 105 mmol/L (98-107) Carbon Dioxide Level 31 mmol/L (21-32) 25 mmol/L (21-32) Anion Gap 5 (6-14) 10 (6-14) Blood Urea Nitrogen 17 mg/dL (8-26) 18 mg/dL (8-26) Creatinine 1.3 mg/dL (0.7-1.3) 1.1 mg/dL (0.7-1.3) Estimated GFR (Cockcroft-Gault) 55.4 67.2 BUN/Creatinine Ratio 13 (6-20) Glucose Level 131 mg/dL (70-99) 120 mg/dL (70-99) Calcium Level 9.4 mg/dL (8.5-10.1) 9.2 mg/dL (8.5-10.1) Total Bilirubin 0.7 mg/dL (0.2-1.0) 1.2 mg/dL (0.2-1.0) Aspartate Amino Transf (AST/SGOT) 77 U/L (15-37) 55 U/L (15-37) Alanine Aminotransferase (ALT/SGPT) 156 U/L (16-63) 117 U/L (16-63) Alkaline Phosphatase 82 U/L (46-116) 54 U/L (46-116) Troponin I Quantitative 0.031 ng/mL (0.000-0.055) 0.027 ng/mL (0.000-0.055) 0.024 ng/mL (0.000-0.055) HE-Ewd-R-Type Natriuretic Peptide 4166 pg/mL (0-124) Total Protein 7.1 g/dL (6.4-8.2) 6.8 g/dL (6.4-8.2) Albumin 3.4 g/dL (3.4-5.0) 3.2 g/dL (3.4-5.0) Albumin/Globulin Ratio 0.9 (1.0-1.7) Magnesium Level 1.9 mg/dL (1.8-2.4) Direct Bilirubin 0.4 mg/dL (0.0-0.2) Triglycerides Level 58 mg/dL (0-150) Cholesterol Level 127 mg/dL (0-200) LDL Cholesterol, Calculated 83 mg/dL (0-100) VLDL Cholesterol, Calculated 12 mg/dL (0-40) Non-HDL Cholesterol Calculated 95 mg/dL (0-129) HDL Cholesterol 32 mg/dL (40-60) Cholesterol/HDL Ratio 4.0 Laboratory Tests Test 04/20/20 07:12 Sodium Level 140 mmol/L (136-145) Potassium Level 3.7 mmol/L (3.5-5.1) Chloride Level 105 mmol/L (98-107) Carbon Dioxide Level 25 mmol/L (21-32) Anion Gap 10 (6-14) Blood Urea Nitrogen 18 mg/dL (8-26) Creatinine 1.1 mg/dL (0.7-1.3) Estimated GFR (Cockcroft-Gault) 67.2 Glucose Level 120 mg/dL (70-99) Calcium Level 9.2 mg/dL (8.5-10.1) Total Bilirubin 1.2 mg/dL (0.2-1.0) Direct Bilirubin 0.4 mg/dL (0.0-0.2) Aspartate Amino Transf (AST/SGOT) 55 U/L (15-37) Alanine Aminotransferase (ALT/SGPT) 117 U/L (16-63) Alkaline Phosphatase 54 U/L (46-116) Total Protein 6.8 g/dL (6.4-8.2) Albumin 3.2 g/dL (3.4-5.0) Triglycerides Level 58 mg/dL (0-150) Cholesterol Level 127 mg/dL (0-200) LDL Cholesterol, Calculated 83 mg/dL (0-100) VLDL Cholesterol, Calculated 12 mg/dL (0-40) Non-HDL Cholesterol Calculated 95 mg/dL (0-129) HDL Cholesterol 32 mg/dL (40-60) Cholesterol/HDL Ratio 4.0 Medications Current Medications Nitroglycerin (Nitro-Bid Oint) 1 inch 1X ONCE TP Last administered on 04/18/20at 23:30; Start 04/18/20 at 23:30; Stop 04/18/20 at 23:31; Status DC Fentanyl Citrate (Fentanyl 2ml Vial) 50 mcg 1X ONCE IVP Last administered on 04/18/20at 23:28; Start 04/18/20 at 23:30; Stop 04/18/20 at 23:31; Status DC Iohexol (Omnipaque 350 Mg/ml) 70 ml 1X ONCE IV Last administered on 04/19/20at 01:04; Start 04/19/20 at 01:00; Stop 04/19/20 at 01:01; Status DC Info (CONTRAST GIVEN -- Rx MONITORING) 1 each PRN DAILY PRN MC SEE COMMENTS; Start 04/19/20 at 00:30; Stop 04/21/20 at 00:29 Acetaminophen/ Hydrocodone Bitart (Lortab 5/325) 2 tab 1X ONCE PO Last administered on 04/19/20at 02:52; Start 04/19/20 at 03:00; Stop 04/19/20 at 03:01; Status DC Albuterol Sulfate (Ventolin Neb Soln) 2.5 mg PRN Q4HRS PRN NEB SHORTNESS OF BREATH Last administered on 04/19/20at 10:56; Start 04/19/20 at 11:00 Acetaminophen (Tylenol) 650 mg PRN Q6HRS PRN PO PAIN; Start 04/19/20 at 10:30 Hydralazine HCl (Apresoline Inj) 10 mg PRN Q4HRS PRN IVP ELEVATED BP, SEE COMMENTS Last administered on 04/20/20at 02:11; Start 04/19/20 at 10:30 Amlodipine Besylate (Norvasc) 5 mg DAILY PO Last administered on 04/20/20at 08:5 2; Start 04/19/20 at 11:00 Acetaminophen/ Hydrocodone Bitart (Lortab 5/325) 1 tab PRN Q6HRS PRN PO SEVERE PAIN 7-10 Last administered on 04/19/20at 20:00; Start 04/19/20 at 10:30 Lisinopril (Prinivil) 20 mg DAILY PO Last administered on 04/20/20at 08:51; Start 04/19/20 at 11:00 Acetaminophen/ Hydrocodone Bitart (Lortab 5/325) 2 tab PRN Q6HRS PRN PO SEVERE PAIN 7-10 Last administered on 04/20/20at 02:03; Start 04/19/20 at 10:45 Sodium Chloride (Normal Saline Flush) 3 ml QSHIFT PRN IV AFTER MEDS AND BLOOD DRAWS; Start 04/19/20 at 19:15 Ondansetron HCl (Zofran) 4 mg PRN Q4HRS PRN IV NAUSEA/VOMITING; Start 04/19/20 at 19:15 Zolpidem Tartrate (Ambien) 5 mg PRN QHS PRN PO INSOMNIA; Start 04/19/20 at 19:15 Acetaminophen (Tylenol) 650 mg PRN Q4HRS PRN PO TEMP OVER 100.4F OR MILD PAIN; Start 04/19/20 at 19:15 Al Hydroxide/Mg Hydroxide (Mylanta Plus Xs) 30 ml PRN DAILY PRN PO HEARTBURN / GAS; Start 04/19/20 at 19:15 Clonidine HCl (Catapres) 0.1 mg PRN Q6HRS PRN PO SBP>160 OR DBP>90; Start 04/19/20 at 19:15 Sodium Monofluorophosphate (Fleet Adult) 133 ml PRN DAILY PRN MT CONSTIPATION; Start 04/19/20 at 19:15 Docusate Sodium (Colace) 100 mg PRN BID PRN PO HARD STOOLS; Start 04/19/20 at 19:15 Albuterol/ Ipratropium (Duoneb) 3 ml Q4HRS NEB ; Start 04/19/20 at 20:00; Status Cancel Guaifenesin (Robitussin) 200 mg PRN Q4HRS PRN PO COUGH; Start 04/19/20 at 19:15 Lorazepam (Ativan) 0.5 mg PRN Q4HRS PRN PO ANXIETY / AGITATION; Start 04/19/20 at 19:15 Enoxaparin Sodium (Lovenox 40mg Syringe) 40 mg Q24H SQ Last administered on 04/19/20at 20:38; Start 04/19/20 at 21:00 Albuterol/ Ipratropium (Combivent Respimat 20-100 Mcg) 1 puff RTQID INH Last ad ministered on 04/19/20at 23:17; Start 04/19/20 at 21:00 Nicotine (Nicoderm Cq 14mg) 1 patch PRN DAILY PRN TD SMOKING CESSATION Last administered on 04/19/20at 23:12; Start 04/19/20 at 22:45 Amiodarone HCl 150 mg/Dextrose 103 ml @ 600 mls/hr 1X ONCE IV Last administered on 04/20/20at 04:37; Start 04/20/20 at 04:45; Stop 04/20/20 at 04:55; Status DC Amiodarone HCl 450 mg/Dextrose 259 ml @ 0 mls/hr CONT PRN IV SEE I/O RECORD Last administered on 04/20/20at 04:39; Start 04/20/20 at 05:00; Stop 04/21/20 at 04:59 Active Scripts Active Lisinopril 20 Mg Tablet 1 Tab PO DAILY 30 Days Amlodipine Besylate 5 Mg Tablet 5 Mg PO DAILY 30 Days Hydrocodone-Apap 5-325 (Hydrocodone Bit/Acetaminophen) 1 Each Tablet 1 Tab PO PRN Q6HRS PRN Bactrim Ds Tablet (Sulfamethoxazole/Trimethoprim) 1 Each Tablet 1 Tab PO BID [place] 5-325 Tablet (Acetaminophen/Hydrocodone Bitart) 1 Each Tablet 1-2 Tab PO Q4-6HRS Vitals/I & O Vital Sign - Last 24 Hours 04/19/20 04/19/20 04/19/20 04/19/20 11:16 11:16 11:17 11:23 Temp 98.3 98.3 Pulse 93 93 Resp 20 B/P (MAP) 215/113 215/113 Pulse Ox 94 O2 Delivery Room Air 04/19/20 04/19/20 04/19/20 04/19/20 11:51 12:51 13:51 15:41 Pulse 98 87 84 83 B/P (MAP) 161/81 (107) 162/67 (98) 150/82 (104) 154/78 (103) Pulse Ox 95 94 96 96 O2 Delivery Room Air Room Air Room Air 04/19/20 04/19/20 04/19/20 04/19/20 17:00 19:30 20:00 20:00 Pulse 86 Resp 15 18 B/P (MAP) 168/103 (124) Pulse Ox 96 96 96 O2 Delivery Room Air Nasal Cannula Room Air Room Air 04/19/20 04/19/20 04/19/20 04/19/20 21:00 22:35 22:58 22:59 Temp 98.2 97.7 98.2 97.7 Pulse 79 78 Resp 21 B/P (MAP) 152/81 (104) 146/ 146/72 (96) Pulse Ox 95 95 O2 Delivery Room Air Room Air Room Air 04/20/20 04/20/20 04/20/20 04/20/20 02:03 02:11 03:00 03:00 Temp 98.2 98.2 Pulse 90 83 Resp 21 19 21 B/P (MAP) 174/104 154/84 (107) Pulse Ox 97 O2 Delivery Room Air Nasal Cannula Nasal Cannula O2 Flow Rate 2.0 2.0 04/20/20 04/20/20 04/20/20 04/20/20 04:37 04:47 04:51 04:57 Pulse 83 92 92 87 B/P (MAP) 154/84 165/94 (117) 145/82 (103) 155/85 (108) 04/20/20 04/20/20 04/20/20 04/20/20 05:07 05:17 05:27 05:37 Pulse 89 85 77 80 B/P (MAP) 150/85 (106) 138/82 (100) 138/79 (98) 142/81 (101) 04/20/20 04/20/20 04/20/20 04/20/20 06:07 06:37 08:51 08:52 Pulse 87 79 81 81 B/P (MAP) 139/70 (93) 153/81 (105) 165/83 165/83 Justicifation of Admission Dx: Justifications for Admission: Justification of Admission Dx: Yes Angina: New-Onset RUI GARCÍA MD Apr 20, 2020 11:02
[2020-04-20] MEDS ORDERED: NITROGLYCERIN SUBLINGUAL 0.4 MG BOTTLE OF 25. SL PRN (13:45)
--- NOTE | 2020-04-20 15:56 | NUR ---
SW following. Spoke with RN and reviewed chart. Spoke with pt. Pt stated he lives in an [place] apartment and is looking to move when able. Pt has a dtr in [facility] who is helping pt look for new apartments as pt stated he is saving his money from his stimulus check. Pt on 2l 02. Pt does not have home 02. Pt on oral medications. SW to follow as needed.
--- NOTE | 2020-04-20 17:13 | PDOC ---
CAROLINA CORBIN [employer] DES[employer] 04/20/20 1713: CARDIO Progress Notes Date and Time Date of Service 04/20/20 Time of Evaluation 1245 Subjective Subjective: No shortness of breath, No Palpitations Vitals Vitals Vital Signs Date Time Temp Pulse Resp B/P (MAP) Pulse Ox O2 Delivery O2 Flow Rate FiO2 04/20/20 14:34 Nasal Cannula 2.0 04/20/20 13:44 74 118/65 (82) 04/20/20 11:37 98.0 20 95 98.0 Weight Weight [ ] Laboratory Labs Laboratory Tests Test 04/20/20 07:12 Sodium Level 140 mmol/L (136-145) Potassium Level 3.7 mmol/L (3.5-5.1) Chloride Level 105 mmol/L (98-107) Carbon Dioxide Level 25 mmol/L (21-32) Anion Gap 10 (6-14) Blood Urea Nitrogen 18 mg/dL (8-26) Creatinine 1.1 mg/dL (0.7-1.3) Estimated GFR (Cockcroft-Gault) 67.2 Glucose Level 120 mg/dL (70-99) Calcium Level 9.2 mg/dL (8.5-10.1) Total Bilirubin 1.2 mg/dL (0.2-1.0) Direct Bilirubin 0.4 mg/dL (0.0-0.2) Aspartate Amino Transf (AST/SGOT) 55 U/L (15-37) Alanine Aminotransferase (ALT/SGPT) 117 U/L (16-63) Alkaline Phosphatase 54 U/L (46-116) Total Protein 6.8 g/dL (6.4-8.2) Albumin 3.2 g/dL (3.4-5.0) Triglycerides Level 58 mg/dL (0-150) Cholesterol Level 127 mg/dL (0-200) LDL Cholesterol, Calculated 83 mg/dL (0-100) VLDL Cholesterol, Calculated 12 mg/dL (0-40) Non-HDL Cholesterol Calculated 95 mg/dL (0-129) HDL Cholesterol 32 mg/dL (40-60) Cholesterol/HDL Ratio 4.0 Physical Exam HEENT: Neck Supple W Full Motion Chest: Symmetric LUNGS: Clear to Auscultation Heart: RRR Abdomen: Soft N/T Extremities: No Calf Tenderness Neurology: alert, oriented, follow commands Assessment Assessment 1. Chest pain, mixed features. 2. Hypertensive urgency; now controlled 4. Minimal troponin elevation; peak 0.031. EKG without significant acute changes. . We will continue treatment for heart failure. Will check an ech ocardiogram 4. Mild acute on chronic probable diastolic CHF; s/p IV diuresis 5. CKD; Cr stable 6. COPD with underlying tobaccoism; discussed/encouraged cessation 7. Obesity 8. Elevated LFTs 9. Arrhythmia; having frequent PVC's, burst on NSVT overnight on tele. Amiodarone gtt initiated Recommendations Echo to assess LV systolic function Add ASA TSH level Add low-dose metoprolol for suppression Consider outpatient ischemic evaluation. Supportive care Justicifation of Admission Dx: Justifications for Admission: Justification of Admission Dx: Yes Angina: New-Onset LEROY DUENAS MD 04/20/20 1716: CARDIO Progress Notes Assessment Assessment Patient seen and examined Agree with our nurse practitioners assessment and plan. Hypertensive urgency; now controlled Atypical chest pain. mInimal troponin elevation; peak 0.031. EKG without significant acute changes. . We will continue treatment for heart failure. Will check an echocardiogram. Probable outpatient ischemia work-up Mild acute on chronic probable diastolic CHF; s/p IV diuresis CKD; Cr stable COPD with underlying tobaccoism; discussed/encouraged cessation Arrhythmia; having frequent PVC's, burst on NSVT overnight on tele. Amiodarone gtt initiated. Echo pending. Low-dose beta-blockers. Continue to monitor. CAROLINA CORBIN APRN Apr 20, 2020 17:13 LEROY DUENAS MD Apr 20, 2020 17:16
--- NOTE | 2020-04-20 19:14 | NUR ---
Dr. Contreras notified of patient's negative covid result & ok with transferring patient to [facility], Dr. Colby mobile phone messaged, awaiting call back from him.
[2020-04-20] MEDS: ENOXAPARIN 40 MG/0.4 ML SYRINGE. SQ SCH (20:06)
[2020-04-20] MEDS: METOPROLOL TART IMMED RELEASE 25 MG TABLET. PO SCH (20:07)
[2020-04-21] MEDS: HYDROcodone/APAP 5/325MG 1 TAB TABLET PO PRN (01:57)
[2020-04-21 03:35] VITALS: BP 138/67
--- NOTE | 2020-04-21 04:40 | EKG ---
[facility] [address] [place] [address] Test Date: 2020-04-18 Test Time: 23:12:34 Pat Name: GENEVIEVE GOLD Department: Room: Gender: M Quality Technician: : 1955 Requested By: DONNY ALEX Order Number: [id number] Reading MD: Measurements Intervals [place] Rate: 81 P: 43 MO: 170 QRS: 32 QRSD: 120 T: 37 QT: 408 QTc: 480 Interpretive Statements SINUS RHYTHM VENTRICULAR PREMATURE COMPLEX(ES) LEFT ATRIAL ABNORMALITY S1,S2,S3 PATTERN CONSIDER RIGHT VENTRICULAR HYPERTROPHY ABNORMAL ECG RI6.01 No previous ECG available for comparison
[2020-04-21 07:28] VITALS: BP 160/79
[2020-04-21] MEDS ORDERED: ASPIRIN ENTERIC COATED 81 MG TABLET.DR. PO SCH (08:00)
[2020-04-21] MEDS: LISINOPRIL 20 MG TABLET PO SCH (09:27)
[2020-04-21] MEDS: amLODIPine BESYLATE 5 MG TABLET PO SCH (09:27)
[2020-04-21] MEDS: METOPROLOL TART IMMED RELEASE 25 MG TABLET. PO SCH (09:27)
[2020-04-21 11:30] VITALS: BP 160/74
--- NOTE | 2020-04-21 13:13 | NUR ---
SW following. Spoke with RN and CM. Reviewed chart and coordinated care with Dr. Contreras. Pt to discharge home today to [facility]. Pt on room air and oral medications. No further SW needs at this time. Addendum: 04/21/20 at 1317 by STERLING HERNANDEZ Note entered in error: Pt is transferring to [facility] and not discharging home. Pt is on room air and plans to discharge home to [place] when stable.
--- NOTE | 2020-04-21 13:41 | PDOC ---
PROGRESS NOTES Chief Complaint Chief Complaint A/P: Chest pain - likely costochondritis and CHF related as well as COPD Elevated troponin - likely demand ischemia from HTN urgency. Improved Heart failure. BNP of 4166. Mild iv diuresis . COPD - combivent Tobacco abuse disorder Renal insufficiency - likely vasomotor nephropathy Hypertensive emergency. Initial pressures of 180/130. morbid obesity Transaminitis - likely congestive hepatopathy from acute CHF from HTN emergency History of Present Illness History of Present Illness Mr Lr is a 64yo M w/ PMHx HTN, hep C, rheumatic fever, COPD, smoker who p/w chest pain with onset two days prior to ED visit. constant worse with supine position and somewhat worse with activity // across front of chest tight pos tobacco use no etoh no drugs ran out of blood pressure meds a couple of weeks ago no hx of diabetes. Patient has been coughing somewhat the last several days but no fever positive family history of coronary artery disease 04/20: Afebrile overnight. Still with some dull left-sided chest pain, not repro ducible does not radiate no associated nausea. Overnight he had a few PVCs, no V. tach, he was started on amiodarone infusion. Afebrile. Shortness of breath improved with Combivent. Negative COVID-19 testing. His chest pain has resolved with occasional nitroglycerin and with the Combivent, encouraged to quit smoking. BP better controlled back on his meds. He is asking to discharge. Vitals Vitals Vital Signs Date Time Temp Pulse Resp B/P (MAP) Pulse Ox O2 Delivery O2 Flow Rate FiO2 04/21/20 11:30 97.9 72 18 160/74 (102) 94 Room Air 97.9 04/21/20 08:00 2.0 Physical Exam General: Alert, Oriented X3, Cooperative, No acute distress Heart: Regular rate Abdomen: Normal bowel sounds, Soft Extremities: No cyanosis Skin: No rashes, No significant lesion Comment Review of Relevant I have reviewed the following items maria m (where applicable) has been applied. Labs Laboratory Tests Test 04/20/20 07:12 Sodium Level 140 mmol/L (136-145) Potassium Level 3.7 mmol/L (3.5-5.1) Chloride Level 105 mmol/L (98-107) Carbon Dioxide Level 25 mmol/L (21-32) Anion Gap 10 (6-14) Blood Urea Nitrogen 18 mg/dL (8-26) Creatinine 1.1 mg/dL (0.7-1.3) Estimated GFR (Cockcroft-Gault) 67.2 Glucose Level 120 mg/dL (70-99) Calcium Level 9.2 mg/dL (8.5-10.1) Total Bilirubin 1.2 mg/dL (0.2-1.0) Direct Bilirubin 0.4 mg/dL (0.0-0.2) Aspartate Amino Transf (AST/SGOT) 55 U/L (15-37) Alanine Aminotransferase (ALT/SGPT) 117 U/L (16-63) Alkaline Phosphatase 54 U/L (46-116) Total Protein 6.8 g/dL (6.4-8.2) Albumin 3.2 g/dL (3.4-5.0) Triglycerides Level 58 mg/dL (0-150) Cholesterol Level 127 mg/dL (0-200) LDL Cholesterol, Calculated 83 mg/dL (0-100) VLDL Cholesterol, Calculated 12 mg/dL (0-40) Non-HDL Cholesterol Calculated 95 mg/dL (0-129) HDL Cholesterol 32 mg/dL (40-60) Cholesterol/HDL Ratio 4.0 Thyroid Stimulating Hormone (TSH) 1.022 uIU/mL (0.358-3.74) Medications Current Medications Nitroglycerin (Nitro-Bid Oint) 1 inch 1X ONCE TP Last administered on 04/18/20at 23:30; Start 04/18/20 at 23:30; Stop 04/18/20 at 23:31; Status DC Fentanyl Citrate (Fentanyl 2ml Vial) 50 mcg 1X ONCE IVP Last administered on 04/18/20at 23:28; Start 04/18/20 at 23:30; Stop 04/18/20 at 23:31; Status DC Iohexol (Omnipaque 350 Mg/ml) 70 ml 1X ONCE IV Last administered on 04/19/20at 01:04; Start 04/19/20 at 01:00; Stop 04/19/20 at 01:01; Status DC Info (CONTRAST GIVEN -- Rx MONITORING) 1 each PRN DAILY PRN MC SEE COMMENTS; Start 04/19/20 at 00:30; Stop 04/21/20 at 00:29; Status DC Acetaminophen/ Hydrocodone Bitart (Lortab 5/325) 2 tab 1X ONCE PO Last administered on 04/19/20at 02:52; Start 04/19/20 at 03:00; Stop 04/19/20 at 03:01; Status DC Albuterol Sulfate (Ventolin Neb Soln) 2.5 mg PRN Q4HRS PRN NEB SHORTNESS OF BREATH Last administered on 04/19/20at 10:56; Start 04/19/20 at 11:00 Acetaminophen (Tylenol) 650 mg PRN Q6HRS PRN PO PAIN; Start 04/19/20 at 10:30 Hydralazine HCl (Apresoline Inj) 10 mg PRN Q4HRS PRN IVP ELEVATED BP, SEE COM MENTS Last administered on 04/20/20at 02:11; Start 04/19/20 at 10:30 Amlodipine Besylate (Norvasc) 5 mg DAILY PO Last administered on 04/21/20at 09:27; Start 04/19/20 at 11:00 Acetaminophen/ Hydrocodone Bitart (Lortab 5/325) 1 tab PRN Q6HRS PRN PO SEVERE PAIN 7-10 Last administered on 04/19/20at 20:00; Start 04/19/20 at 10:30 Lisinopril (Prinivil) 20 mg DAILY PO Last administered on 04/21/20at 09:27; Start 04/19/20 at 11:00 Acetaminophen/ Hydrocodone Bitart (Lortab 5/325) 2 tab PRN Q6HRS PRN PO SEVERE PAIN 7-10 Last administered on 04/21/20at 01:57; Start 04/19/20 at 10:45 Sodium Chloride (Normal Saline Flush) 3 ml QSHIFT PRN IV AFTER MEDS AND BLOOD DRAWS; Start 04/19/20 at 19:15 Ondansetron HCl (Zofran) 4 mg PRN Q4HRS PRN IV NAUSEA/VOMITING; Start 04/19/20 at 19:15 Zolpidem Tartrate (Ambien) 5 mg PRN QHS PRN PO INSOMNIA; Start 04/19/20 at 19:15 Acetaminophen (Tylenol) 650 mg PRN Q4HRS PRN PO TEMP OVER 100.4F OR MILD PAIN; Start 04/19/20 at 19:15 Al Hydroxide/Mg Hydroxide (Mylanta Plus Xs) 30 ml PRN DAILY PRN PO HEARTBURN / GAS; Start 04/19/20 at 19:15 Clonidine HCl (Catapres) 0.1 mg PRN Q6HRS PRN PO SBP>160 OR DBP>90; Start 04/01 06/21 at 19:15 Sodium Monofluorophosphate (Fleet Adult) 133 ml PRN DAILY PRN [place] CONSTIPATION; Start 04/19/20 at 19:15 Docusate Sodium (Colace) 100 mg PRN BID PRN PO HARD STOOLS Last administered on 04/21/20at 04:58; Start 04/19/20 at 19:15 Albuterol/ Ipratropium (Duoneb) 3 ml Q4HRS NEB ; Start 04/19/20 at 20:00; Status Cancel Guaifenesin (Robitussin) 200 mg PRN Q4HRS PRN PO COUGH; Start 04/19/20 at 19:15 Lorazepam (Ativan) 0.5 mg PRN Q4HRS PRN PO ANXIETY / AGITATION; Start 04/19/20 at 19:15 Enoxaparin Sodium (Lovenox 40mg Syringe) 40 mg Q24H SQ Last administered on 04/20/20at 20:06; Start 04/19/20 at 21:00 Albuterol/ Ipratropium (Combivent Respimat 20-100 Mcg) 1 puff RTQID INH Last administered on 04/20/20at 20:04; Start 04/19/20 at 21:00 Nicotine (Nicoderm Cq 14mg) 1 patch PRN DAILY PRN TD SMOKING CESSATION Last administered on 04/19/20at 23:12; Start 04/19/20 at 22:45 Amiodarone HCl 150 mg/Dextrose 103 ml @ 600 mls/hr 1X ONCE IV Last administered on 04/20/20at 04:37; Start 04/20/20 at 04:45; Stop 04/20/20 at 04:55; Status DC Amiodarone HCl 450 mg/Dextrose 259 ml @ 0 mls/hr CONT PRN IV SEE I/O RECORD Last administered on 04/20/20at 14:35; Start 04/20/20 at 05:00; Stop 04/21/20 at 04:59; Status DC Nitroglycerin (Nitrostat) 0.4 mg PRN Q5MIN PRN SL CHEST PAIN Last administered on 04/20/20at 13:38; Start 04/20/20 at 13:45 Metoprolol Tartrate (Lopressor) 25 mg BID PO Last administered on 04/21/20at 09:27; Start 04/20/20 at 21:00 Aspirin (Ecotrin) 81 mg DAILYWBKFT PO Last administered on 04/21/20at 09:27; St art 04/21/20 at 08:00 Active Scripts Active Lisinopril 20 Mg Tablet 1 Tab PO DAILY 30 Days Amlodipine Besylate 5 Mg Tablet 5 Mg PO DAILY 30 Days Hydrocodone-Apap 5-325 (Hydrocodone Bit/Acetaminophen) 1 Each Tablet 1 Tab PO PRN Q6HRS PRN Bactrim Ds Tablet (Sulfamethoxazole/Trimethoprim) 1 Each Tablet 1 Tab PO BID Mcmillan 5-325 Tablet (Acetaminophen/Hydrocodone Bitart) 1 Each Tablet 1-2 Tab PO Q4-6HRS Vitals/I & O Vital Sign - Last 24 Hours 04/20/20 04/20/20 04/20/20 04/20/20 13:44 14:34 14:37 15:07 Temp 98.3 98.3 Pulse 74 68 74 Resp 20 B/P (MAP) 118/65 (82) 103/55 (71) 152/76 (101) Pulse Ox 95 O2 Delivery Nasal Cannula Nasal Cannula O2 Flow Rate 2.0 2.0 04/20/20 04/20/20 04/20/20 04/20/20 15:37 16:07 17:56 18:26 Pulse 66 70 84 70 B/P (MAP) 149/71 (97) 156/74 (101) 151/72 (98) 149/72 (97) 04/20/20 04/20/20 04/20/20 04/20/20 18:56 20:07 20:28 23:15 Temp 97.9 97.9 Pulse 72 72 71 Resp 20 B/P (MAP) 137/69 (91) 137/69 143/82 (102) Pulse Ox 92 O2 Delivery Room Air Room Air 04/21/20 04/21/20 04/21/20 04/21/20 01:57 02:57 03:35 07:28 Temp 98.4 98.1 98.4 98.1 Pulse 59 84 Resp 20 20 16 B/P (MAP) 138/67 (90) 160/79 (106) Pulse Ox 92 92 94 96 O2 Delivery Room Air Room Air Room Air Room Air 04/21/20 04/21/20 04/21/20 04/21/20 08:00 09:27 09:27 09:27 Pulse 84 84 84 B/P (MAP) 160/79 160/79 160/79 O2 Delivery Room Air O2 Flow Rate 2.0 04/21/20 11:30 Temp 97.9 97.9 Pulse 72 Resp 18 B/P (MAP) 160/74 (102) Pulse Ox 94 O2 Delivery Room Air Intake and Output 04/20/20 04/20/20 04/21/20 15:00 23:00 07:00 Intake Total 150 ml 200 ml Output Total 100 ml 300 ml Balance -100 ml -150 ml 200 ml Justicifation of Admission Dx: Justifications for Admission: Justification of Admission Dx: Yes Angina: New-Onset RUI GARCÍA MD Apr 21, 2020 13:41
[2020-04-21] MEDS ORDERED: LISI-334 PO (13:44)
[2020-04-21] MEDS ORDERED: IPRA4AER INH (13:44)
[2020-04-21] MEDS ORDERED: AMLO10TA8 PO (13:44)
[2020-04-21] MEDS ORDERED: ASPI-886 PO (13:44)
[2020-04-21] MEDS ORDERED: METO25TA4 PO (13:44)
[2020-04-21 15:13] VITALS: BP 135/64
--- NOTE | 2020-04-21 15:56 | CARD ---
MR#: [id number] Date of Study: 04/21/2020 Ordering Physician: LEROY ESTES, Referring Physician: LEROY ESTES, Tech: Keisha Jha APPROVED REPORT EXAM: Two-dimensional and M-mode echocardiogram with Doppler and color Doppler. Other Information Quality : AverageHR: 66bpm Technically limited study due to body habitus. INDICATION Ventricular Tachycardia RISK FACTORS Hypertension Hyperlipidemia Smoking 2D DIMENSIONS RVDd4.1 (2.9-3.5cm)Left Atrium(2D)3.2 (1.6-4.0cm) IVSd1.3 (0.7-1.1cm)Aortic Root(2D)4.0 (2.0-3.7cm) LVDd5.5 (3.9-5.9cm)LVOT Diameter2.2 (1.8-2.4cm) PWd1.3 (0.7-1.1cm)LVDs3.6 (2.5-4.0cm) FS (%) 35.2 %SV95.2 ml Aortic Valve AoV Peak Maciel.149.9cm/sAoV VTI29.3cm AO Peak GR.9.0mmHgLVOT Peak Maciel.72.0cm/s LVOT VTI 15.31cmAO Mean GR.5mmHg TASHA (VMAX)1.19mm5ZQZ (VTI)1.91cm2 AI P 1/2 Pdco118nc Mitral Valve MV E Itkqszgy46.2cm/sMV DECEL ESMK628qb MV A Dwbxlvrq58.1cm/sMV BWF63zl E/A Ratio1.6MVA (PHT)3.98cm2 TDI E/Lateral E'11.7E/Medial E'13.7 Pulmonary Valve PV Peak Kefrxsgp28.6cm/sPV Peak Grad.2mmHg Tricuspid Valve TR P. Lhbltlvd004iw/sRAP [id number] TR Peak Gr.36lpOiOTRN43xjXa LEFT VENTRICLE The left ventricle is normal size. There is mild concentric left ventricular hypertrophy. The systoli c function is mildly impaired. The Ejection Fraction is 40-45%. There is mild global hypokinesis of t he left ventricle. Transmitral Doppler flow pattern is Grade II-pseudonormal filling dynamics. RIGHT VENTRICLE The right ventricle is normal size. There is normal right ventricular wall thickness. The right ventr icular systolic function is normal. ATRIA The left atrium is mildly dilated. The right atrium size is normal. The interatrial septum is intact with no evidence for an atrial septal defect or patent foramen ovale as noted on 2-D or Doppler imagi ng. AORTIC VALVE The aortic valve is thickened but opens well. Doppler and Color Flow revealed trace to mild aortic re gurgitation. There is no significant aortic valvular stenosis. MITRAL VALVE The mitral valve is normal in structure and function. There is no evidence of mitral valve prolapse. There is no mitral valve stenosis. Doppler and Color-flow revealed mild mitral regurgitation. TRICUSPID VALVE The tricuspid valve is normal in structure and function. Doppler and Color Flow revealed trace to mil d tricuspid regurgitation with an estimated PAP of 40 mmHg. There is no tricuspid valve stenosis. PULMONIC VALVE The pulmonic valve is not well visualized. Doppler and Color Flow revealed no pulmonic valvular regur gitation. GREAT VESSELS The aortic root is borderline enlarged. The IVC is normal in size and collapses >50% with inspiration . PERICARDIAL EFFUSION There is no evidence of significant pericardial effusion. Critical Notification Critical Value: No <Conclusion> The left ventricle is normal size. The systolic function is mildly impaired. The Ejection Fraction is 40-45%. There is mild global hypokinesis of the left ventricle. There is mild concentric left ventricular hypertrophy. Doppler and Color Flow revealed trace to mild aortic regurgitation. There is no significant aortic valvular stenosis. Doppler and Color-flow revealed mild mitral regurgitation. Doppler and Color Flow revealed trace to mild tricuspid regurgitation with an estimated PAP of 40 mmH g. Signed by : Leroy Estes MD Electronically Approved : 04/21/2020 15:56:19
--- NOTE | 2020-04-24 08:10 | PDOC3 ---
Discharge Summary Visit Information Date of Admission: Apr 19, 2020 Date of Discharge: Apr 21, 2020 Admitting Diagnosis: Chest pain Final Diagnosis HTN urgency Brief Hospital Course Allergies Allergies Coded Allergies Type Severity Reaction Last Updated Verified Penicillins Allergy Intermediate hives, sweaty 06/28/16 Yes Brief Hospital Course Mr Lr is a 64yo M w/ PMHx HTN, hep C, rheumatic fever, COPD, smoker who p/w chest pain with onset two days prior to ED visit. constant worse with supine position and somewhat worse with activity // across front of chest tight pos tobacco use no etoh no drugs ran out of blood pressure meds a couple of weeks ago no hx of diabetes. Patient has been coughing somewhat the last several days but no fever positive family history of coronary artery disease 04/20: Afebrile overnight. Still with some dull left-sided chest pain, not reproducible does not radiate no associated nausea. Overnight he had a few PV Cs, no V. tach, he was started on amiodarone infusion. Afebrile. Shortness of breath improved with Combivent. Negative COVID-19 testing. His chest pain has resolved with occasional nitroglycerin and with the Combivent, encouraged to quit smoking. BP better controlled back on his meds. He is asking to discharge. Echo: The left ventricle is normal size. The systolic function is mildly impaired. The Ejection Fraction is 40-45%. There is mild global hypokinesis of the left ventricle. There is mild concentric left ventricular hypertrophy. Doppler and Color Flow revealed trace to mild aortic regurgitation. There is no significant aortic valvular stenosis. Doppler and Color-flow revealed mild mitral regurgitation. Doppler and Color Flow revealed trace to mild tricuspid regurgitation with an estimated PAP of 40 mmHg. Consults: Cardiology Problem list: Chest pain - likely costochondritis and CHF related as well as COPD Elevated troponin - likely demand ischemian type II from HTN urgency. Improved Heart failure. BNP of 4166. COPD - combivent Tobacco abuse disorder Renal insufficiency - likely vasomotor nephropathy Hypertensive emergency. Initial pressures of 180/130. 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 Transaminitis - likely congestive hepatopathy from acute CHF from HTN emergency Greater than 30 minutes spent on d/c Discharge Information Condition at Discharge: Improved Follow Up: Weeks (1) Disposition/Orders: D/C to Home Scheduled Amlodipine Besylate (Amlodipine Besylate) 10 Mg Tablet, 10 MG PO DAILY for HTN for 90 Days, #90 Ref 3 Prescribed by: RUI GARCÍA MD on 04/21/20 1344 Aspirin (Aspirin Ec) 81 Mg Tablet.dr, 81 MG PO DAILYWBK for CAD for 90 Days, #90 Ref 3 Prescribed by: RUI GARCÍA MD on 04/21/20 1344 Ipratropium/Albuterol Sulfate (Combivent Respimat Inhal) 4 Gm Aer.w.adap, 1 PUFF INH RTQID for COPD for 30 Days, #1 Prescribed by: RUI GARCÍA MD on 04/21/20 1344 Lisinopril (Lisinopril) 20 Mg Tablet, 1 TAB PO DAILY for HTN for 30 Days, #30 Ref 1 Prescribed by: RUI GARCÍA MD on 04/21/20 1344 Metoprolol Tartrate (Metoprolol Tartrate) 25 Mg Tablet, 25 MG PO BID for HTN for 90 Days, #180 Ref 3 Prescribed by: RUI GARCÍA MD on 04/21/20 1344 Discontinued Medications Amlodipine Besylate (Amlodipine Besylate) 5 Mg Tablet, 5 MG PO DAILY for 30 Days, #30 Ref 1 Discontinued Reason: Prescription changed Prescribed by: ELIZABETH ROMERO D.O. on 11/10/19 1436 Last Action: Continued on 04/19/20 1029 by CHRISTOPHER NUÑEZ MD Hydrocodone Bit/Acetaminophen (Hydrocodone-Apap 5-325 ) 1 Each Tablet, 1 TAB PO PRN Q6HRS PRN for PAIN, #14 Prescribed by: RAYMOND AGUILAR on 07/25/16 0407 Last Action: HELD on 04/19/20 1029 by CHRISTOPHER NUÑEZ MD Hydrocodone/Apap 5-325 (Dante 5-325 Tablet) 1 Each Tablet, 1-2 TAB PO Q4-6HRS, #10 Prescribed by: Ana Villafuerte APRN on 06/28/16 1353 Last Action: Continued on 04/19/20 1029 by CHRISTOPHER NUÑEZ MD Sulfamethoxazole/Trimethoprim (Bactrim Ds Tablet) 1 Each Tablet, 1 TAB PO BID, #20 Prescribed by: Ana Villafuerte APRN on 06/28/16 1353 Last Action: HELD on 04/19/20 1029 by CHRISTOPHER NUÑEZ MD Justicifation of Admission Dx: Justifications for Admission: Justification of Admission Dx: Yes Angina: New-Onset RUI GARCÍA MD Apr 24, 2020 08:10
== END 2020-04-21 17:06 | disposition home or self-care (01) | DRG 205 ==
LOC: ER 23:01 → 6 SOUTH 04-19 02:44 → ED HOLD 04-19 03:56 → OBSVTOIN 04-19 03:56 → 6 SOUTH 04-19 21:24
PROVIDERS: ADMIT Internal Medicine; ATTEND Internal Medicine
DX: M94.0 Chondrocostal junction syndrome [Tietze] (principal); N17.0 Acute kidney failure with tubular necrosis; I13.0 Hypertensive heart and chronic kidney disease with heart failure and stage 1 through stage 4 chronic kidney disease, or unspecified chronic kidney disease; I16.1 Hypertensive emergency; I47.2 Ventricular tachycardia; I50.42 Chronic combined systolic (congestive) and diastolic (congestive) heart failure; I16.0 Hypertensive urgency; E66.01 Morbid (severe) obesity due to excess calories; E78.5 Hyperlipidemia, unspecified; F17.210 Nicotine dependence, cigarettes, uncomplicated; F31.9 Bipolar disorder, unspecified; I49.3 Ventricular premature depolarization; I77.810 Thoracic aortic ectasia; J44.9 Chronic obstructive pulmonary disease, unspecified; K76.1 Chronic passive congestion of liver; N18.9 Chronic kidney disease, unspecified; Z20.828 Contact with and (suspected) exposure to other viral communicable diseases; Z82.49 Family history of ischemic heart disease and other diseases of the circulatory system; F41.9 Anxiety disorder, unspecified; M19.90 Unspecified osteoarthritis, unspecified site; I25.10 Atherosclerotic heart disease of native coronary artery without angina pectoris; Z68.33 Body mass index [BMI] 33.0-33.9, adult; Z88.0 Allergy status to penicillin
CPT/HCPCS: 36415; 71045; 71275; 74174; 80048; 80053; 80061; 80076; 83735; 83880; 84443; 84484; 85025; 85610; 93005; 93306; 94640; 96374; 99406; J0282; J0360; J1650; J3010; J7060; Q9967; 99285-25; G0378; J7613; U0003-CS